=== PATIENT | female | born 1960 | race Caucasian/White ===

== ENCOUNTER 2017-06-22 14:02 | Emergency (ER) | payer OTHER, MEDICARE, SELFPAY | END 2017-06-22 14:57 | disposition home or self-care (01) | PROVIDERS: Emergency Provider Nurse Practitioner Family; Family Provider Internal Medicine Adolescent Medicine; Visit Provider Nurse Practitioner Family | DX: J01.00 Acute maxillary sinusitis, unspecified (principal); I10 Essential (primary) hypertension; E07.9 Disorder of thyroid, unspecified; E78.5 Hyperlipidemia, unspecified; Z87.891 Personal history of nicotine dependence; Z95.1 Presence of aortocoronary bypass graft; J45.909 Unspecified asthma, uncomplicated; Z79.82 Long term (current) use of aspirin; Z79.52 Long term (current) use of systemic steroids; Z79.899 Other long term (current) drug therapy | CPT/HCPCS: 99201 ==

== ENCOUNTER → 2017-07-13 14:43 | Outpatient (CLI) | payer OTHER, MEDICARE, SELFPAY ==
--- NOTE | 2017-07-13 15:00 | MM_ITS ---
MM Dig screening mamm BI w/CAD CAD Screening COMPARISON: Digital mammograms 09/01/2014 INDICATION: There is a history of breast cancer patient's great aunt diagnosed after menopause TECHNIQUE: Standard CC and MLO images were obtained. R2 CAD reviewed. FINDINGS: The breasts are composed primarily of fat with minimal scattered fiber glandular densities in each breast. There are stable tiny nodular density deep within the right breast. There are 2 small stable nodular densities in the left breast. There is no suspicious lesion and no suspicious microcalcifications. IMPRESSION: Fatty type breast parenchyma with no suspicious lesion seen recommend yearly follow-up BI-RADS Category: 2 Benign Finding(s) RECOMMENDED FOLLOW-UP: 1YR - 1 YEAR FOLLOW-UP (A letter has been sent to the patient regarding results of the study.) And 10/24/2015
== END ==
PROVIDERS: Family Provider Internal Medicine Adolescent Medicine; PCP Nurse Practitioner Family; Visit Provider Nurse Practitioner Family
DX: Z12.31 Encounter for screening mammogram for malignant neoplasm of breast (principal)
CPT/HCPCS: 77067

== ENCOUNTER → 2017-07-16 07:02 | Outpatient (CLI) | payer OTHER, MEDICARE, SELFPAY ==
[2017-07-16 09:25] LABS: Alanine Aminotransferase 20 U/L (12-78); Albumin Level 3.5 gm/dL (3.4-5.0); Alkaline Phosphatase 88 U/L (46-116); Anion Gap 13.1 mEq/L (5-15); Aspartate Amino Transferase 16 U/L (15-37); Bilirubin,Total 0.4 mg/dL (0.2-1.0); Blood Urea Nitrogen 15 mg/dL (7-18); Calcium 8.6 mg/dL (8.5-10.1); Carbon Dioxide 26 mmol/L (21.0-32.0); Chloride 105 mmol/L (98-107); Chol/HDL Ratio 4.7 (1-3.5); Cholesterol 161 mg/dL (140-200); Creatinine,Serum 0.83 mg/dL (0.55-1.02); Estimated Glomerular Filt Rate 71 ml/min (>60); GFR (African American) 86 ML/MIN (>60); Globulin 3.5 gm/dl (1.3-3.2); Glucose 96 mg/dL (74-106); HDL Cholesterol 34 mg/dL (29-89); LDL Cholesterol 59 mg/dL (0-130); Potassium 4.1 mmoL/L (3.5-5.1); Sodium 140 mmol/L (136-145); Thyroid Stimulating Hormone 2.59 uIU/ml (0.358-3.740); Triglycerides 339 mg/dL (30-200); VLDL Cholesterol 68 mg/dL (0-40)
[2017-07-17 17:03] LABS: Vitamin D 25 Hydroxy 41.8 ng/mL (30.0-100.0)
== END ==
PROVIDERS: PCP Nurse Practitioner Family; Visit Provider Nurse Practitioner Family
DX: E78.5 Hyperlipidemia, unspecified (principal); E55.9 Vitamin D deficiency, unspecified; E03.9 Hypothyroidism, unspecified
CPT/HCPCS: 36415; 80053; 80061; 82652; 84443

== ENCOUNTER 2017-09-15 18:39 | Emergency (ER) | payer OTHER, MEDICARE, SELFPAY ==
[2017-09-15 19:22] VITALS: BP 143/85; PULSE 71; RESP 20; TEMP 36.6; O2SAT 96; BMI 31.0
--- NOTE | 2017-09-15 19:36 | HMH.EDUTC ---
[facility] [place] Impression: Cough, Rash and nonspecific skin eruption Disposition: Home, Self-Care Condition on Discharge: Good Instructions: DI for Cough -- Adult Additional Instructions: * Rash needs to be evaluated by Dr. Cameron. wondering if due to allergies since occurring w/ same symptoms each time and not itchy/bothersome. Take a picture today in case it looks different by your follow up appointment. * No sign of bacterial infection. Likely viral. Virus can take 7-14 days to run their course * Monitor Temp. no fever would be expected so if occurs, be sure to follow up. * Encourage fluids, water, gatorade, powerade, pedialyte if infant/toddler/child * sleep elevated * humidifier/vaporizer * Continue inhalers and nose sprays as prescribed. * Bromfed may cause drowsiness. Know how it effects you (or your child) before driving, caring for small children, or sending your child to school. No other antihistamines/allergy medications while taking bromfed. THIS MEANS YOUR Zyrtec! Prescriptions: Brompheniramine/Pseudoephed/Dm [Bromfed DM Cough Syrup 5mL] 10 ml PO QID PRN #240 ml PRN Reason: Cough Referrals: Freddie Cameron [Referring] - (Return to [facility], ER or Dr. rodriguez immediately for new or worsening symptoms. Otherwise, keep follow up already scheduled with Dr. Cameron (local asthma and recruiting intern MD) later this week. ) Time of Disposition: 19:49 Medical Decision Making - Isaac Inquiry Pt receiving controlled substance: No Vital Signs: 09/15/17 19:22 Temperature 97.9 F Temperature Source Temporal Artery Scan Pulse Rate [Brachial] 71 Respiratory Rate 20 Blood Pressure [Right Arm] 143/85 Blood Pressure Mean [Right Arm] 104 Blood Pressure Position [Right Arm] Standing 02 Sat by Pulse Oximetry 96 Oxygen Delivery Method Room Air [facility] [place] - General Stated complaint: cough,sore throat Time Seen by Provider: 09/15/17 19:36 Mode of Arrival: Ambulatory Source of Information: Patient Limitations: No Limitations Description of Symptoms (Recalled from Triage Doc. by RN): COMPLAINS OF COUGH, DRAINAGE X 1 WEEK, H/A, SORE THROAT. NOTICED SPOTS ON HER NECK AND FOREARMS THAT SHE HAS HAD ON THE PAST. HEENT Symptoms (Recalled from RN notes): Yes Resp Symptoms (Recalled from RN notes): Yes Skin Symptoms (Recalled from RN notes): No MS Symptoms (Recalled from RN notes): No Functional Status (Recalled from RN notes): NA - History of Present Illness Provider Complaint: c/o PND, cough, sore throat, rash again. Reports this has been a repeated thing x months. About once a month . Denies new contacts, medications, toiletries, pets, etc. Hx of asthma and allergies. Sees Dr. Cameron. At least appt, changed to zyrtec qam and singulair at night w/ continued unknown nasal inhaler, daily respiratory inhaler and rescue inhaler. Denies SOA, increase use of rescue inhaler or wheezing. hx of tobacco use but not xyears. They said at one time I had COPD . Did not discuss intermittent rash w/ Dr. Cameron just this cough and drainage that they think might be allergy related . Saw PCP, Cece, for it one month ago and reports was put on steroids. Steroid didn't help rash. Rash is not bothersome unless I see it . Not itchy. Unchanged since noticed yesterday. - Related Data Home Medications Medication Instructions Recorded Confirmed Aspirin [Aspir 81] 81 mg PO DAILY 09/15/17 09/15/17 Calcium Carbonate/Vitamin D3 1 each PO BID 09/15/17 09/15/17 [Caltrate 600 Plus D3 Tablet] Cetirizine HCl [Cetirizine HCl] 10 mg PO DAILY 09/15/17 09/15/17 Escitalopram Oxalate 10 mg PO DAILY 09/15/17 09/15/17 Furosemide [Furosemide 20mg Tab] 20 mg PO DAILY 09/15/17 09/15/17 Isosorbide Mononitrate [Imdur 30mg 0 mg PO DAILY 09/15/17 09/15/17 ER tablet] Losartan Potassium 25 mg PO DAILY 09/15/17 09/15/17 Metoprolol Succinate [Toprol Xl] 100 mg PO DAILY 09/15/17 09/15/17 Omeprazole [Omeprazole 20mg 20 mg PO DAILY 09/15/17 09/15/17 Capsule] Jose
--- NOTE | 2017-09-15 19:46 | ED_ITS ---
[facility] [place] Clinical Impression: Cough, Rash and nonspecific skin eruption Disposition: Home, Self-Care Condition on Discharge: Good Instructions: DI for Cough -- Adult Additional Instructions: * Rash needs to be evaluated by Dr. Cameron. wondering if due to allergies since occurring w/ same symptoms each time and not itchy/bothersome. Take a picture today in case it looks different by your follow up appointment. * No sign of bacterial infection. Likely viral. Virus can take 7-14 days to run their course * Monitor Temp. no fever would be expected so if occurs, be sure to follow up. * Encourage fluids, water, gatorade, powerade, pedialyte if infant/toddler/ child * sleep elevated * humidifier/vaporizer * Continue inhalers and nose sprays as prescribed. * Bromfed may cause drowsiness. Know how it effects you (or your child) before driving, caring for small children, or sending your child to school. No other antihistamines/allergy medications while taking bromfed. THIS MEANS YOUR Zyrtec ! Prescriptions: Brompheniramine/Pseudoephed/Dm [Bromfed DM Cough Syrup 5mL] 10 ml PO QID PRN # 240 ml PRN Reason: Cough Referrals: Freddie Cameron [Referring] - (Return to [facility], ER or Dr. rodriguez immediately for new or worsening symptoms. Otherwise, keep follow up already scheduled with Dr. Cameron (local asthma and academic program specialist MD) later this week. ) Time of Disposition: 19:49 Medical Decision Making - Isaac Inquiry Pt receiving controlled substance: No Vital Signs: 09/15/17 19:22 Temperature 97.9 F Temperature Source Temporal Artery Scan Pulse Rate [Brachial] 71 Respiratory Rate 20 Blood Pressure [Right Arm] 143/85 Blood Pressure Mean [Right Arm] 104 Blood Pressure Position [Right Arm] Standing 02 Sat by Pulse Oximetry 96 Oxygen Delivery Method Room Air [facility] [place] - General Stated complaint: cough,sore throat Time Seen by Provider: 09/15/17 19:36 Mode of Arrival: Ambulatory Source of Information: Patient Limitations: No Limitations Description of Symptoms (Recalled from Triage Doc. by RN): COMPLAINS OF COUGH, DRAINAGE X 1 WEEK, H/A, SORE THROAT. NOTICED SPOTS ON HER NECK AND FOREARMS THAT SHE HAS HAD ON THE PAST. HEENT Symptoms (Recalled from RN notes): Yes Resp Symptoms (Recalled from RN notes): Yes Skin Symptoms (Recalled from RN notes): No MS Symptoms (Recalled from RN notes): No Functional Status (Recalled from RN notes): NA - History of Present Illness Provider Complaint: c/o PND, cough, sore throat, rash again. Reports this has been a repeated thing x months. About once a month . Denies new contacts, medications, toiletries, pets, etc. Hx of asthma and allergies. Sees Dr. Cameron. At least appt, changed to zyrtec qam and singulair at night w/ continued unknown nasal inhaler, daily respiratory inhaler and rescue inhaler. Denies SOA , increase use of rescue inhaler or wheezing. hx of tobacco use but not xyears. They said at one time I had COPD . Did not discuss intermittent rash w/ Dr. Cameron just this cough and drainage that they think might be allergy related . Saw PCP, Cece, for it one month ago and reports was put on steroids. Steroid didn't help rash. Rash is not bothersome unless I see it . Not itchy. Unchanged since noticed yesterday. - Related Data Home Medications Medication Instructions Recorded Confirmed Aspirin [Aspir 81] 81 mg PO DAILY 09/15/17 09/15/17 Calcium Carbonate/Vitamin D3 1 each PO BID 09/15/17 09/15/17 [Caltrate 600 Plus D3 Tablet]
[2017-09-15 19:49] VITALS: BP 143/85; PULSE 71; RESP 20; TEMP 36.6; O2SAT 96
== END 2017-09-15 19:50 | disposition home or self-care (01) ==
PROVIDERS: Emergency Provider Nurse Practitioner Family; Family Provider Internal Medicine Adolescent Medicine; PCP Internal Medicine Adolescent Medicine
DX: R05 Cough (principal); R21 Rash and other nonspecific skin eruption; I10 Essential (primary) hypertension; I25.10 Atherosclerotic heart disease of native coronary artery without angina pectoris; E11.9 Type 2 diabetes mellitus without complications; Z88.0 Allergy status to penicillin; Z79.899 Other long term (current) drug therapy
CPT/HCPCS: 99202

== ENCOUNTER → 2018-01-21 18:59 | Outpatient (REF) | payer OTHER, MEDICARE, SELFPAY | LOC: LAB 18:59 | PROVIDERS: Visit Provider Nurse Practitioner Family | DX: R10.30 Lower abdominal pain, unspecified (principal) | CPT/HCPCS: 87086 ==

== ENCOUNTER → 2018-03-11 12:40 | Outpatient (CLI) | payer OTHER, MEDICARE, SELFPAY ==
--- NOTE | 2018-03-11 12:40 | XR_ITS ---
XR foot wt bearing RT 3V, XR ankle wt bearing RT min 3V Ordering Physician: Ericka Christine DPM Patient Age: 57 years: Female HISTORY: ITS.REASON: pain HISTORY of plantar fasciitis TECHNIQUE: Right ankle 3 views Right foot: 3 views COMPARISON : 10/23/2015 right foot and ankle RIGHT ANKLE 3 VIEWS weightbearing Right ankle is intact joint space well maintained. Talar dome intact. Ankle mortise satisfactory . Bones well mineralized. No erosions. RIGHT FOOT: 3 VIEWS weightbearing No fracture no dislocation. Satisfactory osseous relationships No significant change since October 2015 comparison study. Again see some very slight relative cortical thickening at the proximal metaphysis fourth metatarsal but similar to previous study. Possible old stress reaction but unimpressive. Borderline narrowing at the first tarsometatarsal joint and IP joint of great toe. Borderline narrowing at the DIP joints of the toes. These features could reflect very early degenerative changes Minimal modest plantar arch.Minimal calcaneal spurs. Small 3 mm plantar calcaneal spur. Roughly 5 mm thin spur at Achilles tendon insertion. IMPRESSION: ......... 1.. Right ankle is intact 2. Right foot: no prominent change since 2016. Only very minor observations in text. ... Small plantar calcaneal spur slightly more evident than 2016. ... Only question some scant early degenerative changes at: first tarsal/metatarsal joint, IP joint great toe and DIP joints toes.
== END ==
PROVIDERS: Visit Provider Podiatrist
DX: M25.571 Pain in right ankle and joints of right foot (principal)
CPT/HCPCS: 73610; 73630

== ENCOUNTER → 2018-04-01 14:16 | Outpatient (CLI) | payer OTHER, MEDICARE, SELFPAY ==
--- NOTE | 2018-04-01 14:26 | MR_ITS ---
MR ankle RT wo/w con HISTORY: Instability of the ankle, pain around entire ankle when walking ITS.REASON: right ankle instability ORDERING PHYSICIAN: Ericka Christine DPM PATIENT AGE: 57 years Comparison: None TECHNIQUE: Standard multiplanar multiecho sequences are performed without and with gadolinium enhancement. FINDINGS: The talar dome has an unremarkable appearance. The anterior and posterior tibiofibular ligaments appear intact. There is increased T2 signal involving the anterior talofibular ligament consistent with partial tear.. Fluid in the lateral aspect of the talofibular joint space and at the region of the ATFL. The fibers of the ligament are sparse however deltoid ligament appears intact. Posterior talofibular ligament also appears intact. The tendons about the ankle appear intact. No bone bruise evident. No abnormal enhancement. No bone marrow edema IMPRESSION: 1. Partial tear of the ATFL with ankle joint effusion laterally. 2. Otherwise negative
[2018-04-01 14:40] LABS: Blood Urea Nitrogen 12 mg/dL (7-18); Creatinine,Serum 0.92 mg/dL (0.55-1.02); Estimated Glomerular Filt Rate 63 ml/min (>60); GFR (African American) 76 ML/MIN (>60)
--- NOTE | 2018-04-01 15:31 | HMH.ITSHM ---
FISH OIL COQ10 CALTRATE HAIR, SKIN, AND NAIL ATORVASTATIN LOSARTAN POTASSIUM MONTELUKAST SOD LEVOTHROXINE METOPROLOL SUCC ER OMEPRAZOLE FUROSEMIDE TRAZODONE ESCITALOPRAM CETIRIZINE HCL MELOXICAM
== END ==
PROVIDERS: Family Provider Internal Medicine Adolescent Medicine; Visit Provider Podiatrist
DX: M25.371 Other instability, right ankle (principal); M25.571 Pain in right ankle and joints of right foot; S93.491A Sprain of other ligament of right ankle, initial encounter
CPT/HCPCS: 36415; 73723; 82565; 84520; A9576

== ENCOUNTER 2018-06-03 15:00 | Outpatient (RCR) | payer OTHER, MEDICARE, SELFPAY ==
--- NOTE | 2018-04-23 11:35 | HMH.PTOPEV ---
PT Outpatient Evaluation Rehab PT Outpatient Evaluation Start: 04/23/18 11:24 Freq: Status: Active Protocol: Document 04/23/18 11:24 HALIPAGE (Rec: 04/23/18 11:35 [email or web address] [id number]) Electronically Signed By Jd Hamilton, PT 04/23/18 11:24 Outpatient Therapy Subjective History Subjective History Patient is a 57 year old female presenting to outpatient PT with reports R ankle instability and R heel pain. Pt reports R ATFL tear and R plantar fasciitis starting approximately 5 months ago. Pt reports previous heel injection that provided some relief, but is now wearing off. She reports wearing multiple ankle braces during ambulation and sleep. Hx of L plantar fasciitis. Chief Complaint Pain Stiff Swelling Gives out/Unstable Symptom Type Ache Sharp Symptoms Relieved By Rest/Positioning Ice OTC Meds Prescription Meds Symptoms Aggravated By Standing Physical Activity Walking Prior Functional Limitations None Current Functional Limitations Housework Standing Squatting Recreation Activity Walking Stairs Balance Symptom Description Constant but Variable Level of pain today (0-10) 1 Pain scale - at its best (0-10) 0 Pain scale - at its worst (0-10) 4 Ankle/Foot Eval Gait Observation General Gait Pattern Observation Antalgic Gait Palpation Tenderness right Ankle/Foot Palpation Findings Tenderness Ankle/Foot Palpation Overall Comment calcaneal tubercle ATF TTP positive ROM left Ankle/Foot ROM Reason Not Measured Within Functional Limits right Ankle/Foot Dorsiflexion w/Knee Extended -2 Active Range Motion (degrees) Ankle/Foot Plantar Flexion Active Range 60 of Motion (degrees) Ankle/Foot Eversion Active Range of 13 Motion (degrees) Ankle/Foot Inversion Active Range of 22 Motion (degrees) Ankle/Foot ROM Limitations Soft Tissue Tightness Accessory Mo
== END 2018-06-03 15:05 | disposition home or self-care (01) ==
LOC: PT 15:00
PROVIDERS: Family Provider Internal Medicine Adolescent Medicine; Visit Provider Podiatrist
DX: M25.371 Other instability, right ankle (principal); M72.2 Plantar fascial fibromatosis
CPT/HCPCS: 97010; 97014; 97016; 97033; 97035; 97110; 97140; 97163; G0283

== ENCOUNTER → 2018-06-11 10:00 | Outpatient (CLI) | payer OTHER, MEDICARE, SELFPAY ==
--- NOTE | 2018-06-11 10:22 | XR_ITS ---
XR chest 2V HISTORY: History of smoking with hypertension ITS.REASON: EX SMOKER, HTN, ORDERING PHYSICIAN: Ericka Christine DPM PATIENT AGE: 57 years COMPARISON: 01/22/2018 FINDINGS: There has been prior median sternotomy with CABG. Normal heart size. Prominent pericardial fat pad is present on both sides right more so than left. There is a 5 mm nodule in the right upper lobe posteriorly is stable. Minimal atelectatic changes are present in the retrocardiac region. The remaining lungs are clear. No acute bony anomalies. IMPRESSION: No change with no acute finding
[2018-06-11 10:33] LABS: Basophils % 0.6 % (0.1-2.0); Eosinophils # 0.1 K/mm3 (0.0-0.4); Eosinophils % 1.7 % (0.1-12.0); Hematocrit 35.9 % (37.0-47.0); Lymphocytes # 1.5 K/mm3 (0.7-4.5); Lymphocytes % 25.1 % (10-50); Mean Corpuscular HGB Conc 30.7 g/dL (31.8-35.4); Mean Corpuscular Hemoglobin 25.2 pg (27.0-31.2); Mean Corpuscular Volume 82.1 fl (81-99); Monocytes # 0.5 K/mm3 (0.1-1.0); Monocytes % 7.7 % (1.7-9.3); Neutrophils # 3.8 K/mm3 (1.8-7.8); Neutrophils % 64.9 % (37.0-80.0); Platelet Count 331 K/mm3 (142-424); Red Blood Count 4.37 M/mm3 (4.20-5.40); Red Cell Distribution Width 16.3 % (11.5-17.5); White Blood Count 5.9 K/mm3 (4.8-10.8)
[2018-06-11 10:39] LABS: INR 0.94 (0.9-1.1); Prothrombin Time 9.7 seconds (9.4-11.8)
[2018-06-11 11:02] LABS: Alanine Aminotransferase 37 U/L (12-78); Albumin Level 3.1 gm/dL (3.4-5.0); Albumin/Globulin Ratio 0.7 (1.1-1.8); Alkaline Phosphatase 110 U/L (46-116); Anion Gap 12.6 mEq/L (5-15); Aspartate Amino Transferase 17 U/L (15-37); Bilirubin,Total 0.5 mg/dL (0.2-1.0); Blood Urea Nitrogen 9 mg/dL (7-18); Calcium 8.6 mg/dL (8.5-10.1); Carbon Dioxide 28 mmol/L (21.0-32.0); Chloride 104 mmol/L (98-107); Creatinine,Serum 0.78 mg/dL (0.55-1.02); Estimated Glomerular Filt Rate 76 ml/min (>60); GFR (African American) 92 ML/MIN (>60); Globulin 4.3 gm/dl (1.3-3.2); Glucose 105 mg/dL (74-106); Potassium 3.6 mmoL/L (3.5-5.1); Sodium 141 mmol/L (136-145); Total Protein,Serum 7.4 gm/dL (6.4-8.2)
[2018-06-13 05:35] LABS: Vitamin D 25 Hydroxy 39.2 ng/mL (30.0-100.0)
== END ==
PROVIDERS: Visit Provider Podiatrist
DX: Z01.818 Encounter for other preprocedural examination (principal); M25.371 Other instability, right ankle
CPT/HCPCS: 36415; 71046; 80053; 82652; 85025; 85610; 93005

== ENCOUNTER → 2018-07-08 15:53 | Outpatient (CLI) | payer OTHER, MEDICARE, SELFPAY ==
--- NOTE | 2018-07-08 15:58 | XR_ITS ---
XR ankle wt bearing RT min 3V HISTORY: Follow-up surgery ITS.REASON: post-op views ORDERING PHYSICIAN: Ericka Christine DPM PATIENT AGE: 57 years Comparison: 06/23/2018 FINDINGS: Study is obtained through a splint. Lateral bone plate of the distal fibula with 2 drains. Fixators and metallic buttons along the medial aspect of the distal tibia noted stabilizing the tibial fibular junction. The ankle mortise is intact. The alignment. IMPRESSION: Good alignment status post stabilization procedure of the distal tibia and fibula with no significant change
== END ==
PROVIDERS: PCP Internal Medicine Adolescent Medicine; Visit Provider Podiatrist
DX: Z98.890 Other specified postprocedural states (principal)
CPT/HCPCS: 73610

== ENCOUNTER → 2018-07-27 15:40 | Outpatient (CLI) | payer OTHER, MEDICARE, SELFPAY ==
--- NOTE | 2018-07-27 15:43 | XR_ITS ---
XR ankle wt bearing RT min 3V HISTORY: Follow-up surgery ITS.REASON: post-op ORDERING PHYSICIAN: Ericka Christine DPM PATIENT AGE: 58 years Comparison: 07/08/2018 FINDINGS: No change status post ORIF of the distal tib-fib with a lateral bone plate of the distal shaft of the fibula, 2 transparent fixators within the distal tibia and fibula fixating the tib-fib syndesmosis. The ankle mortise is preserved. The splint has been removed. IMPRESSION: Removal of splint otherwise no change prior fixation of the distal tib-fib
== END ==
PROVIDERS: PCP Internal Medicine Adolescent Medicine; Visit Provider Podiatrist
DX: Z98.890 Other specified postprocedural states (principal)
CPT/HCPCS: 73610

== ENCOUNTER → 2018-09-13 16:13 | Outpatient (CLI) | payer OTHER, MEDICARE, SELFPAY ==
--- NOTE | 2018-09-13 16:16 | MM_ITS ---
MM Dig screening mamm BI w/CAD CAD Screening COMPARISON: Digital mammograms with CAD 07/13/2017 and 10/24/2015 INDICATION: There is a history of breast cancer patient maternal great aunt diagnosed after menopause TECHNIQUE: Standard CC and MLO images were obtained. R2 CAD reviewed. FINDINGS: The breasts are composed primarily of fat with minimal scattered fibroglandular densities in each breast. There are stable tiny nodular densities in each breast. There is a benign-appearing calcification left breast. There is no suspicious lesion and no suspicious microcalcifications. IMPRESSION: Fatty type breast parenchyma with no suspicious lesion seen BI-RADS Category: 2 Benign Finding(s) RECOMMENDED FOLLOW-UP: 1YR - 1 YEAR FOLLOW-UP (A letter has been sent to the patient regarding results of the study.)
== END ==
PROVIDERS: PCP Nurse Practitioner Family; Visit Provider Nurse Practitioner Family
DX: Z12.31 Encounter for screening mammogram for malignant neoplasm of breast (principal)
CPT/HCPCS: 77067

== ENCOUNTER → 2018-09-27 09:58 | Outpatient (CLI) | payer OTHER, MEDICARE, SELFPAY ==
--- NOTE | 2018-09-27 10:03 | XR_ITS ---
XR ankle wt bearing RT min 3V HISTORY: Follow-up surgery ITS.REASON: post-op ORDERING PHYSICIAN: Ericka Christine DPM PATIENT AGE: 58 years Comparison: 06/23/2018 FINDINGS: There are postsurgical changes with a lateral bone plate at the distal fibula with transparent fixators between the distal tibia and fibula and 2 metallic buttons along the medial aspect of the distal tibia. There remains good alignment. The ankle mortise is preserved. The splint has been removed. IMPRESSION: Good alignment status post fixation of the distal tib-fib as described above
== END ==
PROVIDERS: PCP Internal Medicine Adolescent Medicine; Visit Provider Podiatrist
DX: Z98.890 Other specified postprocedural states (principal)
CPT/HCPCS: 73610

== ENCOUNTER 2018-10-22 10:00 | Outpatient (RCR) | payer OTHER, MEDICARE, SELFPAY ==
--- NOTE | 2018-08-09 10:45 | HMH.PTOPEV ---
PT Outpatient Evaluation Rehab PT Outpatient Evaluation Start: 08/09/18 10:16 Freq: Status: Active Protocol: Document 08/09/18 10:17 ROMÁN (Rec: 08/09/18 10:45 ROMÁN [id number]) Electronically Signed By Alex Draper, PT 08/09/18 10:17 Outpatient Therapy Subjective History Subjective History Pt presents s/p R Ankle sx. ( ligament repair) on 06/23/18. Pt reports improved R ankle pain since sx., however, still has some discomfort, swelling , weakness, and N&T. Pt currenly WB 50% on R LE w/cam walker and B axillary crutches Chief Complaint Pain Stiff Swelling Paresthesia Weakness Symptom Type Ache Dull Numbness Symptoms Relieved By Rest/Positioning Ice Symptoms Aggravated By Standing Walking Prior Functional Limitations Housework Standing Walking Current Functional Limitations Housework Standing Walking Stairs Symptom Description Intermittent Level of pain today (0-10) 2 Pain scale - at its best (0-10) 0 Pain scale - at its worst (0-10) 6 Ankle/Foot Eval Gait Observation General Gait Pattern Observation Antalgic Gait Wide Based Gait Assistive Device Ambulation Assistive Device Axillary Crutches Palpation Tenderness right Ankle/Foot Palpation Findings Tenderness Ankle/Foot Palpation Overall Comment 2-3/4 ATF TTP positive PTF TTP positive CF TTP positive Deltoid ligament TTP positive ROM Ankle/Foot Dorsiflexion w/Knee Extended 0-2 Active Range Motion (degrees) Ankle/Foot Plantar Flexion Active Range 0-25 of Motion (degrees) Ankle/Foot Eversion Active Range of 0-10 Motion (degrees) Ankle/Foot Inversion Active Range of 0-15 Motion (degrees) Ankle/Foot ROM Limitations Soft Tissue Tightness Pain MMT Ankle Dorsiflexion Strength Grade 4- Good- Ankle Plantarflexion Strength Grade 4- Good- Foot Eversion Strength Grade 4- Good- Foot Inversion Strength Grade 4- Good- Outpatient Therapy Assessment Impairments Problems/Impairmments
--- NOTE | 2018-09-14 11:21 | HMH.RHREAS ---
Rehab Reassessment Rehab OP Re-assessment Start: 09/14/18 11:14 Freq: Status: Active Protocol: Document 09/14/18 11:14 OVIDIOFARRUKHTRACY (Rec: 09/14/18 11:21 [email or web address] [id number]) Electronically Signed By Alex Draper, PT 09/14/18 11:14 Rehab Re-assessment Subjective Subjective PT REPORTS 0/10 R ANKLE PAIN AT REST AND 2-3/10 R ANKLE PAIN W/ACTIVITY ON VAS, AND FEELS 70% BETTER SINCE I EVAL Objective Objective Notes AROM: L ANKLE DF 0-2, PF 0-35, INV 0-20, EVR 0-15 MMT: L ANKLE DF 4+/5, PF 4/5, INV 4/5, EVR 4/5 TTP: L ANKLE LAT. PERONEAL TNEDON AREA 1-2/4 FIG 8 L 60CM Assessment Progress Assessment Progressing as Expected Assessment Notes PT W/IMPROVED STRENGTH, TTP, AND EDEMA Patient goals met STG'S 01/10 Goals Not Met STG'S 07/13 LTG'S 03/14 Plan Plan PT TO CONT W/SKILLED P.T. TO MAKE FURTHER IMPROVEMENTS IN ROM, STRENGTH, AND TTP TO ALLOW FOR OPTIMAL FUNTION Frequency of Therapy 1-2X/WK Duration of therapy 3-4WKS Time and Billing Re-Eval Time 15 Re-Eval Billing Units 1 PHYSICIAN CERTIFICATION: I certify the specified therapy services for Kina Queen are required, authorized, and reviewed every 30 days.
== END 2018-10-22 10:05 | disposition home or self-care (01) ==
LOC: PT 10:00
PROVIDERS: Visit Provider Podiatrist
DX: Z98.890 Other specified postprocedural states (principal); M79.671 Pain in right foot
CPT/HCPCS: 97010; 97014; 97016; 97033; 97035; 97110; 97140; 97163; 97164; G0283

== ENCOUNTER → 2019-06-23 16:54 | Outpatient (CLI) | payer OTHER, MEDICARE, SELFPAY | PROVIDERS: Visit Provider Podiatrist | DX: B35.1 Tinea unguium (principal) | CPT/HCPCS: 87102; 87206; 87220 ==

== ENCOUNTER → 2019-06-30 08:49 | Outpatient (CLI) | payer OTHER, MEDICARE, SELFPAY ==
[2019-06-30 09:20] LABS: Basophils % 0.3 % (0.1-2.0); Eosinophils % 0.5 % (0.1-12.0); Hematocrit 37.6 % (37.0-47.0); Lymphocytes % 21.6 % (10-50); Mean Corpuscular HGB Conc 31.8 g/dL (31.8-35.4); Mean Corpuscular Hemoglobin 25.3 pg (27.0-31.2); Mean Corpuscular Volume 79.6 fl (81-99); Monocytes # 0.6 K/mm3 (0.1-1.0); Monocytes % 5.9 % (1.7-9.3); Neutrophils # 6.8 K/mm3 (1.8-7.8); Neutrophils % 71.8 % (37.0-80.0); Platelet Count 363 K/mm3 (142-424); Red Blood Count 4.73 M/mm3 (4.20-5.40); Red Cell Distribution Width 15.5 % (11.5-17.5); White Blood Count 9.5 K/mm3 (4.8-10.8)
[2019-06-30 10:24] LABS: Alanine Aminotransferase 22 U/L (12-78); Albumin Level 3.2 gm/dL (3.4-5.0); Albumin/Globulin Ratio 0.8 (1.1-1.8); Alkaline Phosphatase 98 U/L (46-116); Anion Gap 15.2 mEq/L (5-15); Aspartate Amino Transferase 9 U/L (15-37); Bilirubin,Total 0.3 mg/dL (0.2-1.0); Blood Urea Nitrogen 16 mg/dL (7-18); Calcium 8.5 mg/dL (8.5-10.1); Carbon Dioxide 27 mmol/L (21.0-32.0); Chloride 105 mmol/L (98-107); Creatinine,Serum 0.71 mg/dL (0.55-1.02); Estimated Glomerular Filt Rate 85 ml/min (>60); GFR (African American) 102 ML/MIN (>60); Globulin 3.8 gm/dl (1.3-3.2); Glucose 84 mg/dL (74-106); Potassium 4.2 mmoL/L (3.5-5.1); Sodium 143 mmol/L (136-145)
[2019-06-30 10:33] LABS: Thyroid Stimulating Hormone 2.79 uIU/ml (0.358-3.740)
[2019-07-01 11:43] LABS: Vitamin B12 380 pg/mL (232-1245); Vitamin D 25 Hydroxy 45.5 ng/mL (30.0-100.0)
== END ==
PROVIDERS: Podiatrist; Visit Provider Nurse Practitioner Family
DX: E78.5 Hyperlipidemia, unspecified (principal); E03.9 Hypothyroidism, unspecified; E53.8 Deficiency of other specified B group vitamins; E55.9 Vitamin D deficiency, unspecified; I25.83 Coronary atherosclerosis due to lipid rich plaque
CPT/HCPCS: 36415; 80053; 82607; 82652; 84443; 85025

== ENCOUNTER → 2019-08-18 14:49 | Outpatient (CLI) | payer OTHER, MEDICARE, SELFPAY ==
--- NOTE | 2019-08-18 14:53 | XR_ITS ---
PROCEDURE: XR CHEST 2V CLINICAL HISTORY: COUGH COMPARISON: CXR2V XR chest 2V from 01/22/2018 CXR2V XR chest 2V from 05/12/2018 CXR2V XR chest 2V from 06/11/2018 FINDINGS: Prior CABG. Chronic opacity is present in the right lung base consistent with pericardial fat pad with some superimposed increased density just superior to this suggesting atelectasis or infiltrate. There are minimal atelectatic changes in the left lung base. No acute bony abnormalities. IMPRESSION: Chronic changes with right basilar atelectasis or infiltrate Dictated by: Shayan Rea MD 08/18/2019 15:29 Electronically signed by Shayan Rea MD in [place] 08/18/2019 15:29
== END ==
PROVIDERS: PCP Internal Medicine Adolescent Medicine; Visit Provider Nurse Practitioner
DX: R05 Cough (principal)
CPT/HCPCS: 71046

== ENCOUNTER → 2019-11-08 07:36 | Outpatient (CLI) | payer OTHER, MEDICARE, SELFPAY ==
--- NOTE | 2019-11-08 07:42 | US_ITS ---
PROCEDURE: US AORTA CLINICAL INDICATION: CORONARY ATHEROSCLEROSIS COMPARISON: No exams were available for comparison FINDINGS: No evidence of abdominal aortic aneurysm. Proximal common iliacs have an unremarkable appearance. IMPRESSION: Negative for abdominal aortic aneurysm Dictated by: Shayan Rea MD 11/08/2019 17:52 Electronically signed by Shayan Rea MD in [place] 11/08/2019 17:52
--- NOTE | 2019-11-08 07:43 | CT_ITS ---
PROCEDURE: CT LUNG SCREENING CLINICAL INDICATION: H/O NICOTINE DEPENDENCE COMPARISON: No exams were available for comparison TECHNIQUE: The exam was performed on a GE Light Speed [address] scanner using 2.90 mGy CTDI. A low dose helical CT CHEST was performed on a multi-detector scanner. All CT scans at the facility use one or more dose reduction, viz: automated exposure control, ma/kV adjustment per patient size (including targeted exams where dose is matched to indication, i.e. head), or iterative reconstruction technique. The LDCT was performed in a facility that meets the criteria for the screening program. Data regarding this exam was submitted to ACR which is an approved registry. The order for this exam indicates that it came as a result of a lung cancer screening counseling shard decision-making visit that included all the elements required of such a visit including smoking cessation. The radiologist interpreting this exam meets the CMS criteria for the LDCT lung cancer screening program. The exam is reported using the Lung-RADS classification scale and reported to the ACR registry. NOTE: This study was performed for the specific purposes of lung cancer screening and is not an alternative to diagnostic chest CT. RADIATION DOSE: CTDI vol(CT dose Index-volume) = 2.90mG DLP (Dose Length Product) = 96.38 mGcm Lung Rads Category: The FINDINGS: In the right middle lobe there are 2 different 3 mm nodules nonspecific. Calcified granuloma is present in the right upper lobe. A 4 mm noncalcified nodules present in the superior segment of the right lower lobe most superior aspect. Image 21 series 4 probably benign OTHER FINDINGS: Prior CABG. Prior cholecystectomy. IMPRESSION: Lung rads category 2, benign. Recommend annual LD CT Dictated by: Shayan Rea MD 11/21/2019 13:52 Electronically signed by Shayan Rea MD in [place] 11/21/2019 13:52
== END ==
PROVIDERS: PCP Internal Medicine Adolescent Medicine; Visit Provider Internal Medicine Adolescent Medicine
DX: I25.83 Coronary atherosclerosis due to lipid rich plaque (principal); Z87.891 Personal history of nicotine dependence; Z12.2 Encounter for screening for malignant neoplasm of respiratory organs; Z13.6 Encounter for screening for cardiovascular disorders
CPT/HCPCS: 76770

== ENCOUNTER → 2019-12-27 08:45 | Outpatient (CLI) | payer OTHER, MEDICARE, SELFPAY ==
--- NOTE | 2019-12-27 08:48 | MM_ITS ---
PROCEDURE: MM DIG SCREENING MAMM BI W/CAD Digital Breast Tomosynthesis Included CLINICAL INDICATION: . SCREENING There is a history of breast cancer patient's maternal great aunt diagnosed after menopause. COMPARISON: [facility] DIG MAMM-SCREEN JOSE from 10/24/2015 [facility] MM Dig screening mamm BI w/CAD from 07/13/2017 [facility] MM Dig screening mamm BI w/CAD from 09/13/2018 TECHNIQUE: Standard CC and MLO images and 3D Tomosynthesis was obtained. R2 CAD reviewed. FINDINGS: Breasts are composed primarily of fat with minimal scattered fibroglandular densities in each breast. There is a benign-appearing calcification right breast and 3 benign-appearing calcifications left breast. There are tiny nodular densities upper outer quadrant right breast many of which were seen previously but the appears slightly more prominent on today's exam but have no suspicious findings on flor images. However recommend the patient return for six-month follow-up right mammogram to assure interval stability. There are no suspicious microcalcifications. IMPRESSION: Fibrofatty parenchyma with slightly asymmetric glandular elements right breast and recommend short-term interval follow-up to evaluate for interval stability BI-RAD Category: 3 Probably Benign Finding Short Term Follow-up FOLLOW-UP: 6M 6Month Follow-up (A letter has been sent to the patient regarding results of the study.) Dictated by: Dr. Dereck Ortiz MD 12/29/2019 07:[address] Dereck Ortiz MD in [place] 12/29/2019 07:11
== END ==
PROVIDERS: PCP Internal Medicine Adolescent Medicine; Visit Provider Nurse Practitioner Family
DX: Z12.31 Encounter for screening mammogram for malignant neoplasm of breast (principal)
CPT/HCPCS: 77063; 77067

== ENCOUNTER → 2020-01-09 19:09 | Outpatient (CLI) | payer OTHER, MEDICARE, SELFPAY ==
--- NOTE | 2020-01-09 19:27 | XR_ITS ---
PROCEDURE: XR FOOT WT BEARING RT 3V CLINICAL INDICATION: Right 5th toe injury Pain COMPARISON: FTR3 FOOT-RT-3 VIEWS from 10/23/2015 FTL3 FOOT-LT-3 VIEWS from 10/23/2015 FTWBR3 XR foot wt bearing RT 3V from 03/11/2018 FINDINGS: Nondisplaced fracture involves the mid and distal distal aspect of the proximal phalanx of the 5th toe. There also appears to be an intra-articular component involving the proximal and medial aspect of the proximal phalanx. IMPRESSION: Nondisplaced fracture proximal phalanx 5th toe Dictated by: Shayan Rea MD 01/10/2020 07:05 Electronically signed by Shayan Rea MD in [place] 01/10/2020 07:05
== END ==
PROVIDERS: PCP Nurse Practitioner Family; Visit Provider Podiatrist
DX: M79.671 Pain in right foot (principal)
CPT/HCPCS: 73630

== ENCOUNTER → 2020-02-02 08:55 | Outpatient (CLI) | payer OTHER, MEDICARE, SELFPAY ==
--- NOTE | 2020-02-02 09:04 | XR_ITS ---
PROCEDURE: XR FOOT WT BEARING RT 3V CLINICAL INDICATION: fracture follow up COMPARISON: FTR3 FOOT-RT-3 VIEWS from 10/23/2015 FTL3 FOOT-LT-3 VIEWS from 10/23/2015 FTWBR3 XR foot wt bearing RT 3V from 03/11/2018 XR FOOT WT BEARING RT 3V from 01/09/2020 FINDINGS: Again noted is subtle nondisplaced intra-articular corner healing fracture of the head of the 5th proximal phalanx.. No lytic or blastic change. There is normal mineralization. The joint spaces are well-preserved. Other findings:Linear calcification is seen distally along the Achilles tendon, consistent with calcific tendinopathy. A small moderate size plantar calcaneal spur. IMPRESSION: 1. A subtle nondisplaced intra-articular corner fracture of the head of the 5th proximal phalanx is again seen. 2. Calcific tendinopathy with a retrocalcaneal linear calcification. Plantar calcaneal spur. Dictated by: Andrea Mello 02/02/2020 18:42 Electronically signed by Andrea Mello in [place] 02/02/2020 18:42
== END ==
PROVIDERS: PCP Nurse Practitioner Family; Visit Provider Podiatrist
DX: S92.501D Displaced unspecified fracture of right lesser toe(s), subsequent encounter for fracture with routine healing (principal); T14.8XXA Other injury of unspecified body region, initial encounter
CPT/HCPCS: 73630

== ENCOUNTER → 2020-03-05 10:40 | Outpatient (CLI) | payer OTHER, MEDICARE, SELFPAY ==
--- NOTE | 2020-03-05 10:58 | XR_ITS ---
PROCEDURE: XR DEXA AXIAL SKELETON CLINICAL HISTORY: POST MENOPAUSAL COMPARISON: No exams were available for comparison FINDINGS: The right hip BMD is 0.861 with a T-score of -0.7. The left hip BMD is 0.889 with a T-score of -0.4. The lumbar spine BMD is 0.969 with a T-score of -0.7. IMPRESSION: This patient is considered normal according to the World Health Organization criteria. Fracture risk is low. Based on these results a follow-up exam is recommended in 2 year. Dictated by: Shayan Rea MD 03/06/2020 07:18 Shayan Rea MD in [place] 03/06/2020 07:18
== END ==
PROVIDERS: PCP Nurse Practitioner Family; Visit Provider Nurse Practitioner Family
DX: Z13.820 Encounter for screening for osteoporosis (principal); Z78.0 Asymptomatic menopausal state
CPT/HCPCS: 77080

== ENCOUNTER → 2020-03-29 12:09 | Outpatient (CLI) | payer OTHER, MEDICARE, SELFPAY ==
[2020-03-29 14:34] LABS: Coronavirus 19 IgG Antibody Negative (Negative); Coronavirus 19 IgM Antibody Negative (Negative)
== END ==
PROVIDERS: Visit Provider Surgery
DX: Z01.89 Encounter for other specified special examinations (principal); Z12.11 Encounter for screening for malignant neoplasm of colon
CPT/HCPCS: 36415; 86328

== ENCOUNTER → 2020-04-02 13:04 | Outpatient (CLI) | payer OTHER, MEDICARE, SELFPAY ==
[2020-04-02 14:32] LABS: Coronavirus 19 IgG Antibody Negative (Negative); Coronavirus 19 IgM Antibody Negative (Negative)
== END ==
PROVIDERS: Visit Provider Surgery
DX: Z01.89 Encounter for other specified special examinations (principal); Z12.11 Encounter for screening for malignant neoplasm of colon
CPT/HCPCS: 36415; 86328

== ENCOUNTER 2020-04-03 08:49 | Day surgery (SDC) | payer OTHER, MEDICARE, SELFPAY ==
[2020-03-29 13:20] VITALS: BMI 34.7
[2020-04-03] VITALS (7 sets, daily range): BP systolic 102–125; BP diastolic 52–63; PULSE 56–67; RESP 18; TEMP 36.1–36.7; O2SAT 94–100
--- NOTE | 2020-04-03 10:10 | P.PN_ITS ---
[facility] Anesthesia Checklist - Structural Data Admitted From: Home Planned Operative Procedure/s: colonoscopy Consent for Planned Operative Procedure(s) Verified: Yes - Additional verifications Anesthesia Reactions: No Hx Blood Transfusions: No Blood Transfusion Reaction: No - Airway Assessment C-Spine Mobility Assessed: Yes TMJ Mobility Assessed: Yes Dentition: Good Dentition - Neurological Assessment Level of Consciousness: Awake, Alert, Appropriate - Anesthesia Plan Anesthesia Risk discussed: Yes Anesthesia Plan: Verified ASA Class: III Anesthesia Type: MAC [facility] History I have reviewed the patient's past medical history: Yes Medical History: Reports:: Anxiety, Congestive Heart Failure, Coronary Artery Disease, Depression, Gastroesophageal Reflux Disease(GERD), Hyperlipidemia, Hypertension, Lung Disease Denies:: Cancer, Diabetes Mellitus Type 1, Diabetes Mellitus Type 2, Internal Pacemaker, MRSA, Seizures *Have you ever received a pneumonia vaccine?: Yes *Have you received a flu vaccine this season?: No Other Medical History: Reports: Hypothyroidism, Other. Denies: Blood Transfusion Reaction Anesthesia experience/problems:: none Laterality Cases: Right: Other, Bilateral: Cataract Other Surgeries: Yes: Appendectomy, CABG (4 vessel), Cardiac Surgery (2011), Cholecystectomy, Colonoscopy, EGD, Hysterectomy-Total, Hysterectomy-Partial, Other. No: Pacemaker Amputation: No Fractures: No - *Social History Last grade of school completed: High school graduate Smoking Status: Former smoker Tobacco Type: cigarettes Alcohol Intake: never Alcohol Intake Frequency:: other Substance Use Type: denies use *Occupational Status:: disabled Housing: house Household Members: spouse *Travel in the last 8 weeks: Inside the [facility] - Psychiatric History Pschychiatric History:: Reports:: Anxiety, Depression Family Hx:: Non-contributory
--- NOTE | 2020-04-03 11:43 | HMH.SCOPE ---
- Procedure: Date: 04/03/20 Patient Date of :: 1960 Procedure Performed:: Total colonoscopy to terminal ileum with polypectomy Indications:: Patient is a 59-year-old female referred by Cece Cano for follow-up colonoscopy. I had performed several colonoscopies on her in the past. In 2013 she had at least one sessile serrated adenoma. She had follow-up colonoscopy November 2015 and had 3 sessile serrated adenomas and 2 tubular adenomas. Colonoscopy done on 12/29/2017 along with upper endoscopy revealed several hyperplastic polyps and one sessile serrated adenoma. She is without complaints. However, interestingly, she does state that she often vomits when she has a bowel movement. She had mentioned this several years ago as well. Performing Provider:: Zack Kelley MD Referring Provider:: Cece Cano Sedation:: MAC sedation Procedure:: Patient was taken to endoscopy procedure room. She was positioned in lateral decubitus position. Adequate intravenous sedation was achieved with anesthesia titration of propofol. Variable stiffness Olympus colonoscope was inserted via the anus. Was advanced to the cecum. Ileocecal valve and appendiceal orifice were clearly identified. Colonoscope was advanced a short distance into the terminal ileum which appeared grossly normal. Colonoscope was withdrawn through the colon with careful surveillance. She had rare diverticuli. There was a small polyp and an adjacent diminutive polyp near the hepatic flexure 1 of which was removed with cold cutting snare and one removed with biopsy forceps. She had too numerous to count a hyperplastic appearing rectal polyps many of which were sampled, total 7, with cold biopsy forceps to ensure that these were merely hyperplastic. Retroflexion revealed no evidence of any pathologic internal hemorrhoids. Colonoscope was withdrawn. Findings:: Rare diverticulosis Small and diminutive hepatic flexure polyps Numerous hyperplastic appearing rectal polyps Recommendations:: Pending the pathology of the 2 polyps at the hepatic flexure likely repeat colonoscopy 3 to 5 years Complications:: None immediately apparent Estimated blood obtained (mL): 2
== END 2020-04-03 12:21 | disposition home or self-care (01) ==
LOC: OUTP 08:54
PROVIDERS: PCP Nurse Practitioner Family; Visit Provider Surgery
PROC: 0DJD8ZZ Inspection of Lower Intestinal Tract, Via Natural or Artificial Opening Endoscopic (ICD-10-PCS; CPT 45385; principal; 2020-04-03 10:00)
DX: Z12.11 Encounter for screening for malignant neoplasm of colon (principal); K62.1 Rectal polyp; K57.30 Diverticulosis of large intestine without perforation or abscess without bleeding; K63.5 Polyp of colon; Z87.19 Personal history of other diseases of the digestive system; I11.0 Hypertensive heart disease with heart failure; I50.9 Heart failure, unspecified; K21.9 Gastro-esophageal reflux disease without esophagitis; E78.5 Hyperlipidemia, unspecified; I25.10 Atherosclerotic heart disease of native coronary artery without angina pectoris; F32.9 Major depressive disorder, single episode, unspecified; F41.9 Anxiety disorder, unspecified
CPT/HCPCS: 45385; 45380

== ENCOUNTER → 2020-04-30 15:23 | Outpatient (CLI) | payer OTHER, MEDICARE, SELFPAY ==
--- NOTE | 2020-04-30 15:31 | XR_ITS ---
PROCEDURE: XR CHEST PORTABLE CLINICAL HISTORY: COVID OUTPATIENT COVID 19 exposure COMPARISON: CR CXR2V XR chest 2V from 05/12/2018 DX CXR2V XR chest 2V from 06/11/2018 CR XR CHEST 2V from 08/18/2019 FINDINGS: Prior CABG . there is increased density in both lower lung zones which is chronic consistent with soft tissue attenuation and pericardial fat pad. No definite lobar consolidation or collapse evident. Stable 6 mm nodules present in the right upper lobe No acute bony abnormalities. IMPRESSION: No acute findings. Dictated by: Shayan Rea MD 04/30/2020 16:02 Shayan Rea MD in [place] 04/30/2020 16:02
[2020-04-30 15:53] LABS: Chloride 102 mmol/L (98-107); Potassium 3.7 mmoL/L (3.5-5.1); Sodium 140 mmol/L (136-145)
[2020-04-30 15:55] LABS: Alanine Aminotransferase 23 U/L (12-78); Aspartate Amino Transferase 27 U/L (14-36); Blood Urea Nitrogen 10 mg/dl (7-17); Estimated Glomerular Filt Rate 73 ml/min (>60); GFR (African American) 89 ML/MIN (>60)
[2020-04-30 15:56] LABS: Albumin Level 4.2 g/dl (3.5-5.0); Albumin/Globulin Ratio 1.2 (1.1-1.8); Alkaline Phosphatase 103 U/L (38-126); Anion Gap 10.7 mEq/L (5-15); Bilirubin,Total 0.4 mg/dl (0.2-1.3); Calcium 9.1 mg/dl (8.4-10.2); Carbon Dioxide 31 mmol/L (22.0-30.0); Globulin 3.5 g/dL (1.3-3.2); Glucose 110 mg/dl (74-100); Total Protein,Serum 7.7 g/dl (6.3-8.2)
[2020-04-30 16:09] LABS: Basophils % 0.5 % (0.1-2.0); Eosinophils # 0.1 K/mm3 (0.0-0.4); Eosinophils % 1.2 % (0.1-12.0); Hematocrit 36.3 % (37.0-47.0); Hemoglobin 11.9 g/dL (12.2-16.2); Lymphocytes # 2.3 K/mm3 (0.7-4.5); Lymphocytes % 28.8 % (10-50); Mean Corpuscular HGB Conc 32.7 g/dL (31.8-35.4); Mean Corpuscular Hemoglobin 26.6 pg (27.0-31.2); Mean Corpuscular Volume 81.2 fl (81-99); Mean Platelet Volume 7.6 fl (7.4-10.4); Monocytes # 0.4 K/mm3 (0.1-1.0); Monocytes % 5.1 % (1.7-9.3); Neutrophils # 5.1 K/mm3 (1.8-7.8); Neutrophils % 64.4 % (37.0-80.0); Platelet Count 368 K/mm3 (142-424); Red Blood Count 4.47 M/mm3 (4.20-5.40); Red Cell Distribution Width 14.4 % (11.5-17.5); White Blood Count 7.9 K/mm3 (4.8-10.8)
[2020-04-30 21:16] LABS: Adenovirus,PCR Not Detected (NotDetected); Bordetella Pertussis Not Detected (NotDetected); Chlamydophila Pneumoniae, PCR Not Detected (NotDetected); Coronavirus 19, PCR Not Detected (NotDetected); Coronavirus 229E Not Detected (NotDetected); Coronavirus NL63 Not Detected (NotDetected); Coronavirus OC43 Not Detected (NotDetected); Coronovirus HKU1,PCR Not Detected (NotDetected); Human Metapneumovirus Not Detected (NotDetected); Influenza A, PCR Not Detected (NotDetected); Influenza AH1, 2009 Not Detected (NotDetected); Influenza AH1, PCR Not Detected (NotDetected); Influenza AH3,PCR Not Detected (NotDetected); Influenza B, PCR Not Detected (NotDetected); Mycoplasma Pneumoniae, PCR Not Detected (NotDetected); Parainfluenza 1, PCR Not Detected (NotDetected); Parainfluenza 2, PCR Not Detected (NotDetected); Parainfluenza 3, PCR Not Detected (NotDetected); Parainfluenza 4, PCR Not Detected (NotDetected); Respiratory Syncytial Virus Not Detected (NotDetected); Rhinovirus/Enterovirus Not Detected (NotDetected)
== END ==
PROVIDERS: PCP Internal Medicine Adolescent Medicine; Visit Provider Internal Medicine Adolescent Medicine
DX: Z03.818 Encounter for observation for suspected exposure to other biological agents ruled out (principal)
CPT/HCPCS: 36415; 71045; 80053; 85025; 87581; 87633; 87798; U0003

== ENCOUNTER 2020-05-24 15:01 | Emergency (ER) | payer OTHER, MEDICARE, SELFPAY ==
[2020-05-24 15:26] VITALS: BP 137/82; PULSE 84; RESP 19; TEMP 36.9; O2SAT 99; BMI 34.5
--- NOTE | 2020-05-24 15:35 | HMH.EDUTC ---
[facility] Disposition Clinical Impression: Sinusitis Qualifiers: Sinusitis location: unspecified location Chronicity: unspecified Qualified Code(s): J32.9 - Chronic sinusitis, unspecified Disposition: Home, Self-Care Condition on Discharge: Good Instructions: Sore Throat, DI for Sinusitis, Preventing the Spread of Coronavirus Discharge Instructions Additional Instructions: *Monitor Temp, Over the counter Motrin or Tylenol as directed/as needed Tylenol every 4 hours and Motrin every 6 hours (as long as your family doctor has told you that you can take it) for fever or pain. and straight to ER if unable to lower temp less than 101.0 after medication given *Warm salt water gargles may help to soothe the throat *Throat Lozenges *Warm fluids like tea with honey may help to soothe the throat *Sleep elevated *Humidifier/Vaporizer *Flonase 2 sprays in each nostril daily but be aware that it may take 2-3 days before you notice improvement Follow up IMMEDIATELY for new or worsening symptoms or no Noticeable improvement over the next 48-72 hours. 911 for difficulty breathing or swallowing You was tested for today for COVID19 your test result should be back in the next 24-48 hours, you may call to the [facility] later today or tomorrow to see if your test results are back and the result [phone] [facility] hours are 9am-9pm You was given a handout with instructions for Self Quarantine and Self isolation for while you wait on test results and what to do if they are positive If you are positive the Health Dept will be contacting you also Prescriptions: Azithromycin [Z-Vinicio 250mg Tab] 250 mg PO DIRECTED #6 tab Transmission Status: Pending to [facility][id number] Referrals: Brittney Cano APRN [Primary Care Provider] - As needed Forms: Work/School Release Time of Disposition: 15:48 Medical Decision Making - Isaac Inquiry Pt receiving controlled substance: No Isaac was queried for this patient: No Vital Signs: 05/24/20 15:26 Temperature 98.4 F Temperature Source Oral Pulse Rate [Radial] 84 Respiratory Rate 19 Blood Pressure [Right Arm] 137/82 Blood Pressure Mean [Right Arm] 100 Blood Pressure Source [Right Arm] Automatic Cuff Blood Pressure Position [Right Arm] Sitting 02 Sat by Pulse Oximetry 99 Oxygen Delivery Method Room Air Orders (Tests/Meds): ORDERS Category Date Time Status Covid-19 Nasal PCR ([facility]) Routine Lab 05/24/20 15:12 Ordered Medical Decision Narrative: Patient states that she has taken a zpack recently without complications and reactions and denies any recent medication changes since last zpack [facility] HPI - General Stated complaint: sore throat, fever Time Seen by Provider: 05/24/20 15:35 Mode of Arrival: Ambulatory Source of Information: Patient Limitations: No Limitations Description of Symptoms (Recalled from Triage Doc. by RN): FEVER, STUFFY NOSE, SORE THROAT, HEADACHE SINCE YESTERDAY HEENT Symptoms (Recalled from RN notes): Yes Resp Symptoms (Recalled from RN notes): No Skin Symptoms (Recalled from RN notes): No MS Symptoms (Recalled from RN notes): No Functional Status (Recalled from RN notes): WNL - History of Present Illness Provider Complaint: Patient states that she has been having sore throat sinus pressure, headache and ears feeling full States that yesterday she had low grade fever on and off all day States that today she was still feeling bad so she come in - Related Data Home Medications Medication Instructions Recorded Confirmed Aspirin [Aspir 81] 81 mg PO DAILY 09/15/17 04/16/20 Calcium Carbonate/Vitamin D3 1 each PO BID 09/15/17 04/16/20 [Caltrate 600 Plus D3 Tablet] Cetirizine HCl 10 mg PO DAILY 09/15/17 04/16/20 Furosemide [Furosemide 20mg Tab*] 20 mg PO DAILY 09/15/17 04/16/20 Losartan Potassium 25 mg PO DAILY 09/15/17 04/16/20 Metoprolol Succinate [Toprol Xl] 150 mg PO DAILY 09/15/17 04/16/20 Omeprazole [Omeprazole 20mg 20 mg PO DAILY 09/15/17 04/16/20
[2020-05-24 16:23] VITALS: BP 137/82; PULSE 84; RESP 19; TEMP 36.9; O2SAT 99
[2020-05-24 20:22] LABS: UTC Strep Screen (Rapid) Negative (Negative)
--- NOTE | 2020-05-25 04:40 | PC.NURSE ---
Positive COVID results reported.
== END 2020-05-24 16:23 | disposition home or self-care (01) ==
PROVIDERS: Emergency Provider Nurse Practitioner; PCP Nurse Practitioner Family
DX: U07.1 COVID-19 (principal); I10 Essential (primary) hypertension; K21.9 Gastro-esophageal reflux disease without esophagitis; E78.5 Hyperlipidemia, unspecified; E03.9 Hypothyroidism, unspecified; F41.8 Other specified anxiety disorders; Z88.0 Allergy status to penicillin; Z79.899 Other long term (current) drug therapy
CPT/HCPCS: 87880; 99201; U0003

== ENCOUNTER → 2020-06-20 13:53 | Outpatient (CLI) | payer OTHER, MEDICARE, SELFPAY ==
--- NOTE | 2020-06-20 13:55 | MM_ITS ---
PROCEDURE: MM DIG MAMM DX UNILAT RT CAD Digital Breast Tomosynthesis Included CLINICAL INDICATION: ABN MAMM OF RT BREAST COMPARISON: MG SCBI MM Dig screening mamm BI w/CAD from 07/13/2017 MG SCBI MM Dig screening mamm BI w/CAD from 09/13/2018 MG MM DIG SCREENING MAMM BI W/CAD from 12/27/2019 TECHNIQUE: Standard CC and MLO images and 3D Tomosynthesis was obtained. R2 CAD reviewed. FINDINGS: Post primarily of. Small benign-appearing nodular densities are seen upper outer quadrant as noted previously. Alvin images confirm no suspicious abnormality. IMPRESSION: Stable tiny benign-appearing nodular densities and recommend the patient continue with yearly screening mammography BI-RAD Category: 2 Benign Finding(s) FOLLOW-UP: 6M 6Month Follow-up to return to normal yearly screening schedule (A letter has been sent to the patient regarding results of the study.) Dictated by: Dr. Dereck Ortiz MD 06/20/2020 14:14 Dr. Dereck Ortiz MD in [place] 06/20/2020 14:14
== END ==
PROVIDERS: PCP Nurse Practitioner Family; Visit Provider Nurse Practitioner Family
DX: R92.8 Other abnormal and inconclusive findings on diagnostic imaging of breast (principal)
CPT/HCPCS: 77061; 77065; G0279

== ENCOUNTER → 2020-11-02 10:23 | Outpatient (CLI) | payer OTHER, MEDICARE, SELFPAY ==
[2020-11-02 11:04] LABS: Basophils % 0.5 % (0.1-2.0); Eosinophils # 0.1 K/mm3 (0.0-0.4); Eosinophils % 0.9 % (0.1-12.0); Hematocrit 36.3 % (37.0-47.0); Hemoglobin 11.5 g/dL (12.2-16.2); Lymphocytes # 2.4 K/mm3 (0.7-4.5); Lymphocytes % 27.8 % (10-50); Mean Corpuscular HGB Conc 31.6 g/dL (31.8-35.4); Mean Corpuscular Hemoglobin 24.7 pg (27.0-31.2); Mean Corpuscular Volume 78.2 fl (81-99); Mean Platelet Volume 7.1 fl (7.4-10.4); Monocytes # 0.5 K/mm3 (0.1-1.0); Monocytes % 5.6 % (1.7-9.3); Neutrophils # 5.7 K/mm3 (1.8-7.8); Neutrophils % 65.1 % (37.0-80.0); Platelet Count 357 K/mm3 (142-424); Red Blood Count 4.64 M/mm3 (4.20-5.40); Red Cell Distribution Width 15.5 % (11.5-17.5); White Blood Count 8.8 K/mm3 (4.8-10.8)
[2020-11-02 11:46] LABS: Alanine Aminotransferase 22 U/L (12-78); Albumin Level 4.3 g/dl (3.5-5.0); Alkaline Phosphatase 114 U/L (38-126); Anion Gap 11.2 mEq/L (5-15); Aspartate Amino Transferase 24 U/L (14-36); Bilirubin,Direct 0.1 mg/dl (0.0-0.4); Bilirubin,Indirect 0.3 mg/dL (0.0-0.9); Bilirubin,Total 0.4 mg/dl (0.2-1.3); Bilirubin,Unconjugated 0.3 mg/dL (0.0-1.1); Blood Urea Nitrogen 13 mg/dl (7-17); Calcium 9.4 mg/dl (8.4-10.2); Carbon Dioxide 28 mmol/L (22.0-30.0); Chloride 105 mmol/L (98-107); Chol/HDL Ratio 3.8 (1-3.5); Cholesterol 139 mg/dl (140-200); Estimated Glomerular Filt Rate 73 ml/min (>60); GFR (African American) 89 ML/MIN (>60); Glucose 95 mg/dl (74-100); HDL Cholesterol 37 mg/dl (40-60); Potassium 4.2 mmoL/L (3.5-5.1); Sodium 140 mmol/L (136-145); Total Protein,Serum 7.3 g/dl (6.3-8.2); Triglycerides 155 mg/dl (30-150); VLDL Cholesterol 31 mg/dL (0-40)
[2020-11-02 11:57] LABS: Direct LDL Cholesterol 62.75 mg/dL (100-129)
[2020-11-02 12:03] LABS: Free Thyroxine Index 3.2 ug/dL (5.93-13.13); T4 (Thyroxine) 10.5 ug/dl (5.53-11.0); Triiodothryronine (T3) Uptake 30 % (23.5-40.5)
[2020-11-02 12:17] LABS: Thyroid Stimulating Hormone 1.89 uIU/mL (0.465-4.68)
== END ==
PROVIDERS: Visit Provider Physician Assistant
DX: R06.00 Dyspnea, unspecified (principal); R00.2 Palpitations; I25.810 Atherosclerosis of coronary artery bypass graft(s) without angina pectoris; R94.31 Abnormal electrocardiogram [ECG] [EKG]; I45.10 Unspecified right bundle-branch block; G47.33 Obstructive sleep apnea (adult) (pediatric); Z87.891 Personal history of nicotine dependence; Z95.1 Presence of aortocoronary bypass graft; Z79.899 Other long term (current) drug therapy
CPT/HCPCS: 36415; 80048; 80061; 80076; 83735; 84436; 84443; 84479; 85025; 93225

== ENCOUNTER → 2020-11-16 06:29 | Outpatient (CLI) | payer OTHER, MEDICARE, SELFPAY ==
--- NOTE | 2020-11-16 06:30 | CA_ITS ---
APPROVED REPORT EXAM: Comprehensive 2D, Doppler, and color-flow Echocardiogram Epoxy Specialist: Mayra Wang RVT Ht: 5 ft 9 in Wt: 239lbs BSA: 2.23 BP: 127/68 mmHg Indications: CAD,CABG,SOA,PALPS,HTN,HLD,EX SMOKER,RBBB,DEAN,CHF TDS-POOR WINDOWS 2D Dimensions LVOT 1.97 cm (M/F) 1.5-2.5 M-Mode Dimensions RVDd 3.29 cm (0.9-2.6) LA Diam 4.34 cm (1.9-4.0) LVDd 5.62 cm (3.5-5.7) Ao Diam 2.74 cm (2.0-3.7) LVDs 3.97 cm (3.5-5.7) IVSd 0.68 cm (0.6-1.1) PWd 0.64 cm (0.6-1.1) EF (Teich) 55.60% FS 29.40% EDV (Teich) 154.90 mL ESV (Teich) 68.80 mL LV Diastology E Decel Time 190.00 (160-240 msec) E/A Ratio 1.1 MED E' 9.40 (< 7 cm/sec) E'/MED E' Ratio 8.13 (>14) LAT E' 11.00 (<10 cm/sec) E/LAT E' Ratio 6.95 (>14) Aortic Valve AO Peak GR. 7.90 mmHg Mitral Valve MV E Max Anish. 76.00 (40-130 cm/s) MV A Velocity 68.00 (40-130 cm/s) E/A Ratio 1.13 MV Decel. Time 190.00 (160-240 ms) MV PHT 56.00 ms Pulmonary Valve PV Peak Velocity 88.00 (50-150 cm/s) Tricuspid Valve TR P. Velocity 110.00 cm/s RAP Estimate 10.00 mmHg RVSP 14.80 mmHg Left Ventricle Left atrium is mildly enlarged, left ventricle is normal size, mild concentric left ventricular hypertrophy, visually estimated ejection fraction 55% with no regional wall motion abnormality. Diastolic parameters are inconclusive. Right Ventricle Right atrium and right ventricle are mildly enlarged with normal contractility. Aortic Valve Aortic valve is minimally thickened and fibrosed, there is no aortic stenosis or aortic insufficiency. Mitral Valve Mitral valve is grossly normal, there is mild mitral regurgitation Tricuspid Valve Tricuspid valve grossly normal, there is mild tricuspid regurgitation, tricuspid regurgitation jet velocity is inadequate for calculation of the right ventricular systolic pressure Pulmonic Valve Pulmonic valve is poorly visualized. Great Vessels Aortic root is normal size. Pericardium No significant pericardial effusion noted. Conclusion 1. Mild biatrial enlargement, normal left ventricular size, mild concentric left ventricular hypertrophy, visually estimated ejection fraction 55% with no regional wall motion abnormality, diastolic parameters are inconclusive. 2. Mildly enlarged right ventricle with normal contractility. 3. Mild mitral and tricuspid regurgitation. 4. No significant pericardial effusion noted. Electronically signed by : Alex Ngo, 11/16/2020 11:04:58
--- NOTE | 2020-11-16 06:30 | CT_ITS ---
PROCEDURE: CT CHEST WO CON CLINCAL INDICATION: dyspnea COMPARISON: CT CT LUNG SCREENING from 11/08/2019 TECHNIQUE: Unenhanced CT chest with axial, coronal, and sagittal multiplanar reformations. Dose modulation, automated exposure control, and/or iterative reconstruction were used for dose reduction. FINDINGS: LUNGS: There is bibasilar atelectasis, but lungs are otherwise clear. No lobar consolidation, pleural effusions or pneumothorax. Focal calcification is noted in the right upper lobe, unchanged. Nodule in the left lower lobe measuring 3 millimeters (series 3, image 24), unchanged. Subpleural nodules in the right upper lobe measuring 3 millimeters is unchanged. Airway: The central airways are patent. HEART / GREAT VESSELS Heart:The heart is normal size without pericardial effusion. Vessels: Atherosclerotic calcifications are present in the aorta and multiple coronary arteries. Median sternotomy and coronary arterial grafts are noted. MEDIASTINUM Mediastinum: There is no hilar or mediastinal lymphadenopathy. UPPER ABDOMEN: Cholecystectomy is noted. Small hiatus hernia. Otherwise the evaluation of the upper abdominal solid viscera is limited due to lack of intravenous contrast. BONES Bones: Unremarkable Thyroid: The visualized thyroid gland is unremarkable IMPRESSION: No acute intrathoracic abnormality. Stable bilateral pulmonary nodules. Recommend continued annual low-dose lung CT. Dictated by: Kamilah Coffey 11/16/2020 11:13 Kamilah Coffey in [place] 11/16/2020 11:13
--- NOTE | 2020-11-16 06:30 | NM_ITS ---
APPROVED REPORT Exam: Nuclear Stress Test Indication: chest pain..short of breath..fatigue..dizziness Patient Location: Outpatient Stress Tech: Alejandra Constantino MO Tech:WEI Browning RT(R)(N) Ht: 5 ft 9 in Wt: 239 lbs Bra Size: 34 dd HR: 63 bpm BP: 146/76 mmHg BSA: 2.23 m2 BMI: 35.2 History: chest pain..short of breath..fatigue..dizziness Procedure: Patient received a 0.4 mg of intravenous Lexiscan, resting heart rate 63 bpm, resting blood pressure 146/76 mmHg, with Lexiscan maximum heart rate achived was 91 bpm which is Less than 85 % of the maximum predicted heart rate and blood pressure was 154/74 mmHg. With Lexiscan, patient denied any complaint of chest pain. Electrocardiogram Resting electrocardiogram showed sinus rhythm right ventricular conduction delay, with Lexiscan there is less than 1.[address] segment depression noted from the baseline EKG. The EKG portion of the Lexiscan is nondiagnostic. Cardiac Stress and Resting SPECT Images: Cardiac Stress and Resting SPECT images were obtained using technetium 99m Myoview 30.2 mCi stress and 10.75 mCi at rest. Gated SPECT for analysis of segmental wall motion and calculation of the ejection fraction also done. Prone images were also obtained. Cardiac stress and resting SPECT images show a fixed defect in the anterior wall with normal shaina gated SPECT is likely secondary to soft tissue attenuation, no reversible ischemia seen, computer derived ejection fraction 55% with no regional wall motion abnormality, right ventricle is mildly enlarged with normal contractility. This study is technically limited due to patient's body habitus. Conclusion: 1. The EKG portion of the Lexiscan is nondiagnostic. 2. No scintigraphic evidence of reversible ischemia seen, computer derived ejection fraction is 55% with no regional wall motion abnormality, right ventricle is mildly enlarged with normal contractility. This study is technically limited due to patient's body habitus. 3. Likely normal Lexiscan Myoview study. Electronically signed by : Alex Ngo, 11/16/2020 10:59:54
--- NOTE | 2020-11-16 06:30 | CA_ITS ---
APPROVED REPORT Exam: Pharmacologic Technologist: Alejandra Constantino, Ht: 5 ft 9 in Wt: 239 lbs BSA: 2.23 m2 HR: 63 bpm BP: 146/76 mmHg Medical History Medications: Lorazepam,,,,, Omeprazole,,,,, Levothyroxine,,,,, Metoprolol,,,,, Losartan,,,,, Atorvastatin,,,,, Escitalopram,,,,, Lasix,,,,, Albuterol,,,,, Montelukast,,,,, Nitroglycerin,,,,, CetIRIZINE,,,,, Stress Test Details Test: LEXISCAN HR Resting HR: 63 bpm Max Heart Rate (APMHR): 160.889045 bpm Max HR Achieved: 92 bpm Target HR (85% APMHR): 136.586719 bpm % of APMHR: 57.50 Recovery HR: 74 bpm BP Resting BP: 146/76 mmHg Max BP: 154/74 mmHg Recovery BP: 153.0/74.0 mmHg ECG Resting ECG: NSR, IVCD/RBBB Medications Administered Cardizem Injection ( mg at ) Clinical Reason for Termination: Completed Protocol Exercise duration: 04:00 min Highest Stage Achieved: Exercise capacity: 1.0 METs Stress ECG Conclusion Symptoms: No CP Arrhythmias/Ectopy: None ST-T Changes: <1.[address] Segment changes. Conclusion: Non-Diagnostic Electronically signed by : Alex Ngo, 11/16/2020 10:37:38
== END ==
PROVIDERS: PCP Nurse Practitioner Family; Visit Provider Physician Assistant
DX: R06.00 Dyspnea, unspecified; R00.2 Palpitations; I25.810 Atherosclerosis of coronary artery bypass graft(s) without angina pectoris; I45.10 Unspecified right bundle-branch block; R94.31 Abnormal electrocardiogram [ECG] [EKG]; G47.33 Obstructive sleep apnea (adult) (pediatric); Z87.891 Personal history of nicotine dependence; Z95.1 Presence of aortocoronary bypass graft; R40.0 Somnolence
CPT/HCPCS: 71250; 78452; 93017; 93306; A9502; J2785

== ENCOUNTER → 2020-11-29 09:48 | Outpatient (CLI) | payer OTHER, MEDICARE, SELFPAY ==
--- NOTE | 2020-11-29 09:49 | CA_ITS ---
APPROVED REPORT Reimbursement Liaison: ALIVIA/DARIA Laterality: Bilateral Study Quality: Good Indications: dizziness, ASCVD-hx OHS Risk Factors Hypertension: Hyperlipidemia CAD, Doppler Spectral Velocity Analysis ECA (R) 69.30/9.60 cm/s ECA (L) 67.40/10.30 cm/s dICA (R) 79.30/27.70 cm/s dICA (L) 102.10/41.10 cm/s Homer (R) 72.60/23.20 cm/s Homer (L) 86.00/32.10 cm/s pICA (R) 98.80/21.00 cm/s pICA (L) 52.00/15.40 cm/s dCCA (R) 93.50/25.40 cm/s dCCA (L) 80.10/15.00 cm/s pCCA (R) 102.50/19.50 cm/s pCCA (L) 105.50/21.00 cm/s Vert (R) 48.60/12.70 cm/s Vert (L) 46.20/11.60 cm/s ICA/CCA 1.06 ICA/CCA 1.25 Findings Duplex evaluation demonstrates antegrade flow of the bilateral Vertebral Arteries. Duplex evaluation demonstrates stenosis of the right proximal internal carotid artery <20%. Duplex evaluation demonstrates stenosis of the left proximal internal carotid artery <20%. Conclusion Duplex evaluation demonstrates antegrade flow of the bilateral Vertebral Arteries. Duplex evaluation demonstrates stenosis of the right proximal internal carotid artery <20%. Duplex evaluation demonstrates stenosis of the left proximal internal carotid artery <20%. Electronically signed by : Shayan Rea MD 11/29/2020 17:54:43
== END ==
PROVIDERS: PCP Nurse Practitioner Family; Visit Provider Internal Medicine Cardiovascular Disease
DX: R42 Dizziness and giddiness (principal)
CPT/HCPCS: 93880

== ENCOUNTER → 2020-12-05 13:44 | Outpatient (CLI) | payer OTHER, MEDICARE, SELFPAY ==
--- NOTE | 2020-12-05 13:49 | MM_ITS ---
PROCEDURE INFORMATION: Exam: MG Screening 3D Mammography Exam date and time: 12/05/2020 1:49 PM Age: 60 years old Clinical indication: Encounter for screening mammogram for malignant neoplasm of breast TECHNIQUE: Imaging protocol: Screening tomosynthesis and 2D mammography including computer-aided detection (CAD) when performed. COMPARISON: 1. MG MM DIG MAMM DX UNILAT RT CAD 06/20/2020 1:59 PM 2. MG MM DIG SCREENING MAMM BI W/CAD 12/27/2019 8:59 AM FINDINGS: MAMMOGRAPHY: Breast composition: The breast tissue is composed of scattered areas of fibroglandular density. Underlying fine nodular pattern particularly in the right upper outer quadrant is a stable finding Mass: None. Architectural distortion: None. Calcifications: No suspicious calcifications. Asymmetric density: None. Skin thickening: None. Axillary adenopathy: None. IMPRESSION: No mammographic evidence of malignancy. Annual screening is recommended unless otherwise clinically indicated. ASSESSMENT: BI-RADS Category 1: Negative
== END ==
PROVIDERS: PCP Nurse Practitioner Family; Visit Provider Nurse Practitioner Family
DX: Z12.31 Encounter for screening mammogram for malignant neoplasm of breast (principal)
CPT/HCPCS: 77063; 77067

== ENCOUNTER → 2020-12-10 08:38 | Outpatient (POV) | payer OTHER, MEDICARE, SELFPAY | PROVIDERS: Visit Provider Nurse Practitioner Family | DX: Z00.00 Encounter for general adult medical examination without abnormal findings (principal) ==

== ENCOUNTER → 2020-12-12 14:41 | Outpatient (CLI) | payer OTHER, MEDICARE, SELFPAY ==
[2020-12-12 14:43] LABS: Adenovirus F 40/41, stool Not Detected (NotDetected); Astrovirus Not Detected (NotDetected); Clostridium Difficile A/B, PCR Not Detected (NotDetected); Cryptosporidium Not Detected (NotDetected); Cyclospora Cayetanesis Not Detected (NotDetected); Entamoeba histolytica Not Detected (NotDetected); Enteroaggregative E coli Not Detected (NotDetected); Enteropathogenic E coli Not Detected (NotDetected); Enterotoxigenic E coli Not Detected (NotDetected); Giardia lamblia Not Detected (NotDetected); Norovirus Not Detected (NotDetected); Plesimonas Shigalloides, PCR Not Detected (NotDetected); Rotavirus A Not Detected (NotDetected); Salmonella, PCR Not Detected (NotDetected); Sapovirus Not Detected (NotDetected); Shiga-like toxin E coli Not Detected (NotDetected); Shigella Enterovasive E coli Not Detected (NotDetected); Vibrio Cholerae Not Detected (NotDetected); Vibrio, PCR Not Detected (NotDetected); Yersinia Entercolitica, PCR Not Detected (NotDetected)
[2020-12-12 17:42] LABS: Campylobacter Detected (NotDetected)
== END ==
LOC: RT 14:41
PROVIDERS: Nurse Practitioner Family; PCP Nurse Practitioner Family; Visit Provider Internal Medicine Pulmonary Disease
DX: R06.00 Dyspnea, unspecified (principal); R19.7 Diarrhea, unspecified; R10.84 Generalized abdominal pain; R19.4 Change in bowel habit; R11.2 Nausea with vomiting, unspecified; R15.0 Incomplete defecation; R15.2 Fecal urgency; A04.5 Campylobacter enteritis
CPT/HCPCS: 87506; 94060; 94618; 94726; 94727; 94729

== ENCOUNTER → 2020-12-25 10:44 | Outpatient (CLI) | payer OTHER, MEDICARE, SELFPAY ==
--- NOTE | 2020-12-25 10:44 | CT_ITS ---
PROCEDURE INFORMATION: Exam: CT Chest Without Contrast; Diagnostic; High Resolution Exam date and time: 12/25/2020 10:44 AM Age: 60 years old Clinical indication: Dyspnea; Patient HX: Restrictive lung disease TECHNIQUE: Imaging protocol: Diagnostic computed tomography of the chest without contrast. Exam was performed with high resolution protocol. Radiation optimization: All CT scans at this facility use at least one of these dose optimization techniques: automated exposure control; mA and/or kV adjustment per patient size (includes targeted exams where dose is matched to clinical indication); or iterative reconstruction. COMPARISON: CT CHEST WO CON 11/16/2020 6:32 AM FINDINGS: Lungs: 4 mm noncalcified nodule present within the left upper lung. Granulomatous densities noted within both lungs. Atelectatic changes noted within the left lung base without focal pneumonia. Pleural space: No pneumothorax. No pleural effusion. Heart: The heart demonstrates mild diffuse enlargement. There is mild atherosclerotic calcification of the coronary arteries. Aorta: No aortic aneurysm. Lymph nodes: There is no evidence of mediastinal or hilar lymphadenopathy. Calcified lymph nodes noted within the right hilar region. Spleen: The spleen demonstrates punctate calcifications, consistent with remote granulomatous organism exposure. Bones/joints: The thoracic spine demonstrates mild degenerative changes at multiple levels. There are sternal wires consistent with previous sternotomy incision. Soft tissues: There are no soft tissue masses or fluid collections. IMPRESSION: 1. 4 mm noncalcified nodule present within the left upper lung. For patients at low risk (minimal or absent history of smoking and of other known risk factors), no routine follow-up is indicated. For patients at high risk (history of smoking or of other known risk factors), consider optional CT Chest at 12 months. (Reference: Jesi) 2. Granulomatous densities noted within both lungs. 3. Atelectatic changes noted within the left lung base without focal pneumonia. REFERENCES: Jesi Borges, et al. Guidelines for Management of Incidental Pulmonary Nodules Detected on CT Images: From the Fleischner Society 2017. Radiology. 2017;284(1):228-243.
== END ==
PROVIDERS: PCP Nurse Practitioner Family; Visit Provider Internal Medicine Pulmonary Disease
DX: R06.02 Shortness of breath (principal)
CPT/HCPCS: 71250

== ENCOUNTER → 2021-01-14 08:53 | Outpatient (POV) | payer OTHER, MEDICARE, SELFPAY | PROVIDERS: Visit Provider Nurse Practitioner Family | DX: Z00.00 Encounter for general adult medical examination without abnormal findings (principal) ==

== ENCOUNTER → 2021-02-13 16:13 | Outpatient (CLI) | payer OTHER, MEDICARE, SELFPAY ==
[2021-02-13 17:19] LABS: Erythrocyte Sedimentation Rate 95 mm/hr (0-30)
[2021-02-13 17:33] LABS: C-Reactive Protein 27.7 mg/L (0-4)
[2021-02-15 11:14] LABS: RA Latex Turbid. <10.0 IU/mL (0.0-13.9)
[2021-02-15 15:32] LABS: Anti-Centromere B Antibodies <0.2 AI (0.0-0.9); Anti-DNA (DS) Ab Qn 4 IU/mL (0-9); Antinuclear Antibodies, IFA Negative (.); Antiscleroderma-70 Antibodies <0.2 AI (0.0-0.9); RNP Antibodies <0.2 AI (0.0-0.9); Sjogren's Anti-SS-A <0.2 AI (0.0-0.9); Sjogren's Anti-SS-B <0.2 AI (0.0-0.9)
[2021-02-15 19:23] LABS: Cytoplasmic (C-ANCA) <1:20 titer (Neg:<1:20); Perinuclear (P-ANCA) <1:20 titer (Neg:<1:20)
[2021-02-16 00:07] LABS: Anti-Cyclic Citrullinated Pept 6 units (0-19)
[2021-02-21 12:30] LABS: Aspergillus fumigatus IgG Negative (Negative); Pigeon Serum Abs Negative (Negative)
[2021-03-05 10:37] LABS: Antinuclear Antibodies (ANA) NEGATIVE
== END ==
PROVIDERS: Visit Provider Internal Medicine Pulmonary Disease
DX: R06.00 Dyspnea, unspecified (principal); J84.10 Pulmonary fibrosis, unspecified; J84.9 Interstitial pulmonary disease, unspecified; J98.4 Other disorders of lung; J44.9 Chronic obstructive pulmonary disease, unspecified
CPT/HCPCS: 36415; 84550; 85651; 86038; 86140; 86200; 86225; 86235; 86256; 86331; 86431; 86602; 86606; 86609

== ENCOUNTER → 2021-02-19 08:27 | Outpatient (CLI) | payer OTHER, MEDICARE, SELFPAY ==
--- NOTE | 2021-02-19 | MM_ITS ---
PROCEDURE: MM DIG MAMM DX UNILAT RT CAD Digital Breast Tomosynthesis Included Right breast ultrasound complete CLINICAL INDICATION: palp nodule COMPARISON: MG MM DIG SCREENING MAMM BI W/CAD from 12/27/2019 MG MM DIG MAMM DX UNILAT RT CAD from 06/20/2020 MG MM DIG SCREENING MAMM BI W/CAD from 12/05/2020 US US BREAST RT COMPLETE from 02/19/2021 TECHNIQUE: Standard CC and MLO images and 3D Tomosynthesis was obtained. R2 CAD reviewed. FINDINGS: There is mostly fatty replaced fibroglandular tissue. A marker is placed in the area of palpable abnormality in the 1 o'clock region of the right breast near the nipple. No mammographic abnormality evident at this region. Benign-appearing nodule is present in the central aspect of the right breast posterior 1/3 slightly inferior and may be due to a lymph node not significantly changed.. There are benign appearing calcifications in the right breast. Right breast ultrasound: At 1 o'clock near the nipple there is a 4 by 3 mm hypoechoic nodule with slightly lobulated border. The nodule appears well-circumscribed without obvious calcification. There is however some posterior acoustical shadowing. Also at 1 o'clock there is a 6 mm x 4 mm slightly hyperechoic subcutaneous nodule suggesting a lipoma. At 10 o'clock there is a 3 mm hypoechoic nodule with some enhanced through transmission of sound. IMPRESSION: Unremarkable mammogram. 4 mm hypoechoic nodule at 1 o'clock with some posterior acoustical shadowing and irregular margins mildly suspicious. Suggest ultrasound-guided fine needle aspiration. The hypoechoic nodule at 10 o'clock may be due to a complicated cyst for which six-month follow-up is suggested. BI-RAD Category: 4 Suspicious Abnormality-Biopsy Considered FOLLOW-UP: BIO Biopsy Recommended (A letter has been sent to the patient regarding results of the study.) Dictated by: Shayan Rea MD 02/25/2021 11:02 Shayan Rea MD in [place] 02/25/2021 11:02
== END ==
PROVIDERS: PCP Nurse Practitioner Family; Visit Provider Nurse Practitioner Family
DX: N63.12 Unspecified lump in the right breast, upper inner quadrant (principal)
CPT/HCPCS: 76641; 77061; 77065; G0279

== ENCOUNTER → 2021-03-19 09:12 | Outpatient (CLI) | payer OTHER, MEDICARE, SELFPAY ==
--- NOTE | 2021-03-19 09:19 | US_ITS ---
PROCEDURE: US FNA BREAST CLINICAL INDICATION: ABN MAMM Abnormal ultrasound, palpable abnormality COMPARISON: US US BREAST RT COMPLETE from 02/19/2021 MG MM DIG MAMM DX UNILAT RT CAD from 02/19/2021 FINDINGS: Following obtaining informed consent and time-out procedure under aseptic conditions and local anesthesia with 1 percent buffered lidocaine using sonographic guidance, 21 gauge needle was inserted into the hypoechoic nodule in the subcutaneous region of the right breast at o'clock corresponding to the palpable abnormality. The nodule immediately collapsed upon insertion of the needle. Minimal aspirate was obtained and sent to cytology for evaluation. Patient tolerated the procedure well without evidence of immediate complication. Cytology: Atypical. Please see speech pathologist report IMPRESSION: Uneventful ultrasound-guided FNA of the small palpable nodule at 1 o'clock showing atypical cytology. The pathologist recommend additional core needle biopsy however, the nodule completely collapsed. The nodule is not visible mammographically. Close sonographic and mammographic follow-up suggested. Biopsy can be performed if nodule recurs. Also suggest close follow-up with physical exam. Dictated by: Shayan Rea MD 03/29/2021 11:03 Shayan Rea MD in [place] 03/29/2021 11:03
== END ==
PROVIDERS: PCP Nurse Practitioner Family; Visit Provider Nurse Practitioner Family
DX: R92.8 Other abnormal and inconclusive findings on diagnostic imaging of breast (principal)
CPT/HCPCS: 10005

== ENCOUNTER 2021-07-14 10:51 | Emergency (ER) | payer OTHER, MEDICARE, SELFPAY ==
[2021-07-14 11:20] VITALS: BP 146/70; PULSE 74; RESP 18; TEMP 36.8; O2SAT 97; BMI 34.7
--- NOTE | 2021-07-14 11:29 | HMH.EDUTC ---
[facility] [place] Disposition Clinical Impression: URI (upper respiratory infection) Qualifiers: URI type: unspecified viral URI Qualified Code(s): J06.9 - Acute upper respiratory infection, unspecified Disposition: Home, Self-Care Condition on Discharge: Good Instructions: DI for Viral Upper Respiratory Infection -- Adult Additional Instructions: covid swab was sent to lab, call tomorrow for results. self isolate until test results are known to be negative No sign of a bacterial infection. Likely viral. Viruses can take 7-14 days to run their course. Nasal saline and bulb syringe or nose Teresa to remove nasal drainage to help with nasal congestion. Hard to eat, drink, sleep with nasal congestion so important to keep this cleaned out. Monitor temp. Tylenol or Motrin as needed for pain or fever Encourage fluids, water, Gatorade, Powerade, Pedialyte if infant/toddler/child Warm salt water gargles Warm fluids Sore throat lozenges Sleep elevated Humidifier/vaporizer Follow-up immediately for new or worsening symptoms or no noticeable improvement over the next 48-72 hours. Prescriptions: Benzonatate [Benzonatate 100mg cap] 100 mg PO BID PRN 7 Days #14 cap PRN Reason: Cough Transmission Status: Pending to [facility] # predniSONE [Prednisone 20mg Tab] 20 mg PO BID #10 tab Transmission Status: Pending to Chronicity # Referrals: Brittney Cano APRN [Primary Care Provider] - Time of Disposition: 11:38 Medical Decision Making - Isaac Inquiry Pt receiving controlled substance: No [facility] [place] HPI - General Chief complaint: Urgent Treatment Center Stated complaint: cough, congestion/runny nose, h/a Time Seen by Provider: 07/14/21 11:29 Mode of Arrival: Ambulatory Source of Information: Patient Limitations: No Limitations - History of Present Illness Provider Complaint: 60 yr old female presents for cough,nasal congestion, sinus pressure, and clear nasal drainage - Related Data Home Medications Medication Instructions Recorded Confirmed Aspirin [Aspir 81] 81 mg PO DAILY 09/15/17 03/07/21 Calcium Carbonate/Vitamin D3 1 each PO BID 09/15/17 03/07/21 [Caltrate 600 Plus D3 Tablet] Cetirizine HCl 10 mg PO DAILY 09/15/17 03/07/21 Furosemide [Furosemide 20mg Tab*] 20 mg PO DAILY 09/15/17 03/07/21 Losartan Potassium 25 mg PO DAILY 09/15/17 03/07/21 Omeprazole [Omeprazole 20mg 20 mg PO DAILY 09/15/17 03/07/21 Capsule] Trazodone HCl 100 mg PO DAILY 09/15/17 03/07/21 Montelukast Sodium [Singulair 10mg 10 mg PO PM 12/25/17 03/07/21 tablet] Multivit-Min/Folic Acid/Biotin 1 each PO DAILY 12/25/17 03/07/21 [Hair, Skin and Nails Caplet] azelastine 137 mcg (0.1 %) nasal 137 mcg INTRANASAL DAILY 30 Days 07/27/18 03/07/21 spray aerosol ml budesonide-formoterol HFA 160 1 puff INHALATION DAILY 30 Days g 07/27/18 03/07/21 mcg-4.5 mcg/actuation aerosol inhaler escitalopram oxalate 20 mg tablet 20 mg PO DAILY 30 Days tab 07/27/18 03/07/21 levothyroxine 112 mcg tablet 112 mcg PO DAILY 30 Days tab 07/27/18 03/07/21 lorazepam 0.5 mg tablet 0.5 mg PO DAILY 20 Days tab 07/27/18 03/07/21 albuterol sulfate 90 mcg/actuation INHALATION 04/05/20 03/07/21 aerosol inhaler beclomethasone dipropionate 80 INTRANASAL 11/13/20 03/07/21 mcg/actuation nasal HFA inhaler Previous Rx's Medication Instructions Recorded atorvastatin 80 mg tablet 80 mg PO DAILY #90 tab 12/06/20 meloxicam 15 mg tablet 15 mg PO DAILY 30 Days #30 tab 02/18/21 methylprednisolone 4 mg tablets in 4 mg PO PER PKG DIR #21 tab 02/18/21 a dose pack nitroglycerin 0.4 mg sublingual See Rx Instructions .ROUTE 03/01/21 tablet .COMPLEX #25 tab isosorbide mononitrate 30 mg See Rx Instructions .ROUTE 04/30/21 tablet,extended release 24 hr .COMPLEX #30 tab metoprolol succinate 200 mg 200 mg PO DAILY #30 tab 06/17/21 tablet,extended release 24 hr Benzonatate [Benzonatate 100mg 100 mg PO BID PRN 7 Days #14 cap 07/14/21 cap]
[2021-07-14 11:57] VITALS: BP 146/70; PULSE 74; RESP 18; TEMP 36.8; O2SAT 97
== END 2021-07-14 12:02 | disposition home or self-care (01) ==
PROVIDERS: Emergency Provider Nurse Practitioner Family; PCP Nurse Practitioner Family
DX: J06.9 Acute upper respiratory infection, unspecified (principal); F41.8 Other specified anxiety disorders; K21.9 Gastro-esophageal reflux disease without esophagitis; I10 Essential (primary) hypertension; E78.5 Hyperlipidemia, unspecified; I50.9 Heart failure, unspecified; I25.10 Atherosclerotic heart disease of native coronary artery without angina pectoris; Z87.891 Personal history of nicotine dependence; Z20.822 Contact with and (suspected) exposure to COVID-19
CPT/HCPCS: 99202; C9803; G0463; U0003; U0005

== ENCOUNTER 2021-09-28 15:54 | Emergency (ER) | payer OTHER, MEDICARE, SELFPAY ==
[2021-09-28 16:05] VITALS: BP 133/64; PULSE 82; RESP 18; TEMP 36.4; O2SAT 95; BMI 34.7
--- NOTE | 2021-09-28 16:19 | HMH.EDUTC ---
[facility] [place] Clinical Impression: UTI (urinary tract infection) Qualifiers: Urinary tract infection type: site unspecified Hematuria presence: with hematuria Qualified Code(s): N39.0 - Urinary tract infection, site not specified; R31.9 - Hematuria, unspecified Disposition: Home, Self-Care Condition on Discharge: Good Instructions: Urinary Tract Infection, DI for Urinary Tract Infection (UTI) Additional Instructions: Drink plenty of fluids. Take tylenol or ibuprofen for pain or fever. Take the medications as directed. Follow up with your regular doctor. GO TO THE ER FOR ANY WORSENING SYMPTOMS The pyridium will make your urine turn orange, this is an expected side effect. It will stain your clothes if it comes into contact with them. We will culture the urine. That will tell what bacteria is causing your infection and which antibiotics will treat it best. Sometimes the first antibiotic we prescribe turns out to not work against different bacteria. So, make sure you follow up within 3 days if you are not getting better. Prescriptions: Ondansetron [Zofran 4mg ODT] 4 mg PO Q8HP PRN #20 tab PRN Reason: Nausea Transmission Status: Pending to [facility] # Ciprofloxacin HCl [Cipro 500mg Tab] 500 mg PO BID 7 Days #14 tab Transmission Status: Pending to [facility] # Phenazopyridine HCl [Pyridium 200mg Tablet] 200 pow PO TID #6 tab Transmission Status: Pending to [facility] # Referrals: Brittney Cano APRN [Primary Care Provider] - Time of Disposition: 16:48 Medical Decision Making - Medical Records Medical records reviewed: No: I reviewed the patient's medical records. - Isaac Inquiry Pt receiving controlled substance: No Vital Signs: 09/28/21 16:05 Temperature 97.5 F L Temperature Source Temporal Artery Scan Pulse Rate [Left] 82 Respiratory Rate 18 Blood Pressure [Right Arm] 133/64 Blood Pressure Mean [Right Arm] 87 02 Sat by Pulse Oximetry 95 - Lab Data Lab results reviewed: Yes: I reviewed the patient's lab results. Lab Results 09/28/21 16:21: Urine Color [place], Urine Appearance Turbid, Urine pH 5.0, Ur Specific [place] 1.025, Urine Protein 2+, Urine Glucose (UA) Trace, Urine Ketones Small, Urine Blood Negative, Urine Nitrate Positive A, Urine Bilirubin 1+ A, Urine Urobilinogen 2, Ur Leukocyte Esterase Trace Orders (Tests/Meds): ORDERS Category Date Time Status Urine Culture Stat Micro 09/28/21 16:21 Ordered [facility] [place] - General Stated complaint: f Time Seen by Provider: 09/28/21 16:19 Mode of Arrival: Ambulatory Source of Information: Patient Limitations: No Limitations Description of Symptoms (Recalled from Triage Doc. by RN): pt c/o burning and pain with urination since this am. HEENT Symptoms (Recalled from RN notes): No Resp Symptoms (Recalled from RN notes): No Skin Symptoms (Recalled from RN notes): No MS Symptoms (Recalled from RN notes): No Functional Status (Recalled from RN notes): wnl - History of Present Illness Provider Complaint: She states that since this morning she has had low back pain, dysuria, urinary frequency and chills. She does get uti's occasionally and she feels like that is what's going on now. - Related Data Home Medications Medication Instructions Recorded Confirmed Aspirin [Aspir 81] 81 mg PO DAILY 09/15/17 03/07/21 Calcium Carbonate/Vitamin D3 1 each PO BID 09/15/17 03/07/21 [Caltrate 600 Plus D3 Tablet] Cetirizine HCl 10 mg PO DAILY 09/15/17 03/07/21 Furosemide [Furosemide 20mg Tab*] 20 mg PO DAILY 09/15/17 03/07/21 Losartan Potassium 25 mg PO DAILY 09/15/17 03/07/21 Omeprazole [Omeprazole 20mg 20 mg PO DAILY 09/15/17 03/07/21 Capsule] Trazodone HCl 100 mg PO DAILY 09/15/17 03/07/21 Montelukast Sodium [Singulair 10mg 10 mg PO PM 12/25/17 03/07/21 tablet] Multivit-Min/Folic Acid/Biotin 1 each PO DAILY 12/25/17 03/07/21 [Hair, Skin and Nails Capl
[2021-09-28 16:26] LABS: Apearance,Urine Turbid (Clear); Color,Urine Orange (Yellow); Glucose,Urine (UA) Trace (Negative); Protein,Urine 2+ (Negative); Specific Gravity, Urine 1.025 (1.005-1.030)
[2021-09-28 16:27] LABS: Bilirubin,Urine 1+ (Negative); Blood, Urine Negative (Negative); Ketones,Urine SMALL (Negative); UTC Leukocyte Esterase,Urine Trace (Negative); UTC Nitrate,Urine Positive (Negative); Urobilinogen,Urine 2 EU/dl (0.2)
[2021-09-28 16:59] VITALS: BP 133/64; PULSE 82; RESP 18; TEMP 36.4
== END 2021-09-28 16:59 | disposition home or self-care (01) ==
PROVIDERS: Emergency Provider Nurse Practitioner Family; PCP Nurse Practitioner Family
DX: N30.01 Acute cystitis with hematuria (principal); F41.8 Other specified anxiety disorders; K21.9 Gastro-esophageal reflux disease without esophagitis; E78.5 Hyperlipidemia, unspecified; I10 Essential (primary) hypertension; E03.9 Hypothyroidism, unspecified
CPT/HCPCS: 81003; 87086; 99212; G0463

== ENCOUNTER 2021-10-21 08:47 | Outpatient (RCR) | payer OTHER, MEDICARE, SELFPAY | END 2021-10-21 09:51 | disposition home or self-care (01) | LOC: OT 08:47 | PROVIDERS: PCP Nurse Practitioner Family; Visit Provider Orthopaedic Surgery Hand Surgery | DX: R20.0 Anesthesia of skin (principal) | CPT/HCPCS: 97165 ==

== ENCOUNTER → 2021-11-05 08:22 | Outpatient (POV) | payer OTHER, MEDICARE, SELFPAY | PROVIDERS: Visit Provider Dermatology | DX: Z00.00 Encounter for general adult medical examination without abnormal findings (principal) ==

== ENCOUNTER 2022-02-14 08:00 | Outpatient (RCR) | payer OTHER, MEDICARE, SELFPAY ==
--- NOTE | 2021-10-22 11:01 | HMH.PTOPEV ---
PT Outpatient Evaluation Rehab PT Outpatient Evaluation Start: 10/22/21 09:56 Freq: Status: Active Protocol: Document 10/22/21 10:46 ISAAC (Rec: 10/22/21 11:01 ISAAC [id number]) Electronically Signed By Rodriguez Correa, PT 10/22/21 10:46 Outpatient Therapy Subjective History Subjective History Pt is 61 yowf who presents with c/o B UE worsening numbness/tingling and pain x ~ 6 mos. She reports, I've had this kind of problems for years, but its just getting really bad now. They told me for a long time I had carpal tunnel, but when they did the tests (EMG and NCV) they said everything was fine in my wrists. Pt c/o frequent headaches for many years as well, and soreness on B sides of the neck. She reports PMH of HTN, chronic LBP, and CABG x 4v. Chief Complaint Pain,Paresthesia Symptom Type Ache Symptoms Relieved By Rest/Positioning,Shaking Symptoms Aggravated By Sitting Prior Functional Limitations None Current Functional Limitations Reaching,Lifting,Housework, Sleeping,Sitting,Recreation Activity Symptom Description Constant but Variable,Activity Dependent Level of pain today (0-10) 5 Pain scale - at its worst (0-10) 7 Cervical Eval Palpation Cervical Muscles R Cervical Paraspinal,L Cervical Paraspinal,R Suboccipital,L Suboccipital,R Upper Trapezius,L Upper Trapezius Cervical/Thoracic Palpation Findings Tenderness Posture Head/C-Spine Posture Sitting Position Flexed Head/C-Spine Posture Standing Position Flexed Flexibility Deficits Upper Trapezius Muscle Length (R) Mild Tightness,(L) Mild Tightness Levaetor Scapulae Muscle Length (R) Mild Tightness,(L) Mild Tightness Pectoralis Major Muscle Length (R) Mild Tightness,(L) Mild Tightness Pectoralis Minor Muscle Length (R) Mild Tightness,(L) Mild Tightness Passive Joint Mobility Cervical PIVM Dec: L C5/6 R C6/7 WNL: R OA L OA R AA L AA R C2/3 L C2/3 R C3/4 L C3/4 R C4/5 L C4/5 R C5/6 L C6/7 R C7/T1 L C7/T1 AROM Cervical Spine Extension Active Range of 0-40 Motion (degrees) Cervical Spine Flexion Active Range of 0-60 Motion (degrees) Cervical Spine Right Lateral Flexion 0-40 Active Range of Motion (degrees) Cervical Spine Left Lateral Flexion 0-40 Active Range of Motion (degrees) Cervical Spine Right Rotation Active 0-65 Range of Motion (degrees) Cervical Spine Left Rotation Active 0-65 Range of Motion (degrees) MMT Bilateral Deltoid (C5) 5 Normal Biceps Brachii Strength Grade 5 Normal Wrist Extension Strength Grade 5 Normal Triceps Brachii Strength Grade 5 Normal Wrist Flexion Strength Grade 5 Normal Extensor Pollicis Longus Strength Grade 5 Normal Finger Abduction Strength Grade 5 Normal Special Test C-Spine Foraminal Compression ([place]) Negative Left,Negative Right Test C-spine Verterbral Accessory Movements Central P/A [place] that Elicit Symptoms C-Spine Foraminal Distraction Test Positive C-Spine Compression Test Negative Left,Negative Right Outpatient Therapy Assessment Impairments Problems/Impairmments Palpation Tenderness,Impaired Range of Motion,Impaired Endurance,Impaired Sitting, Impaired Driving,Impaired Lifting,Impaired Household Care,Impaired Recreational Activities,Subjective C/O Pain ,Impaired Self Care/Self Management Prognosis Rehab Potential Good Clinical Impression Consistent with Diagnosis Yes Short Term Goals Number of Weeks 2 Decreased Palpation Tenderness Yes Increase Range of Motion Yes: cervical by 5 deg Restore Ability to Lift Objects to Waist Yes Level Decrease Subjective C/O Pain Yes: 09/12 Patient to be Ind w/ HEP Yes Policy Intern Goals Number of Weeks 4 Increase Range of Motion Yes: cervical by 10 deg Increase Endurance Yes Increase Ability to Sit Yes Restore Ability to Lift Objects to Yes Shoulder Level Return to Recreational Activities Yes Decrease Subjective C/O Pain Yes: 07/15 Patient to be Ind w/ Advanced HEP Yes Outpatient Therapy Plan of Care Treatment Plan May Include Therapeutic Exercise Including Home Yes Exercise Program Manual Therapy Techniques Yes Neuromuscular Re-education Yes Therapeutic Activities to Return to Yes Previous Functional/Work Level ADL/Self Care Education Yes Mechanical Traction Yes Dry Needling Yes Thermal Modalities Yes Electrical Stimulation Yes Ultrasound/Phonophoresis Yes Iontophoresis Yes Orthotics/Bracing/Splinting Yes Massage Yes Manual Lymphatic Drainage Yes Eval/Re-Eval Yes Frequency Times per week 2 Duration Number of Weeks 4 Addendums This patient is a candidate for social Yes or vocational rehab? Patient/Guardian verbally acknowledges Yes understanding of treatment program and consents to further treatment? Patient/Guardian verbally acknowledges Yes understanding of diagnosis, prognosis and goals for treatment? G -code Required No Eval Complexity PT Charges 54801 - High Complexity Shoulder/Elbow Eval Shoulder Objective Measurements Elbow Objective Measurements PHYSICIAN CERTIFICATION: I certify the specified therapy services for Kina Samaniego Young are required, authorized, and reviewed every 30 days.
--- NOTE | 2021-11-12 09:12 | HMH.RHREAS ---
Rehab Reassessment Rehab OP Re-assessment Start: 11/12/21 09:01 Freq: Status: Active Protocol: Document 11/12/21 09:02 ISAAC (Rec: 11/12/21 09:11 ISAAC [id number]) Electronically Signed By Rodriguez Correa, PT 11/12/21 09:02 Rehab Re-assessment Subjective Subjective Pt reports overall neck pain is decreased with less instances of headache. She presents this date with c/o pain in the low back x ~ 20 yrs and new orders from MD for treatment of low back. Objective Objective Notes Cervical spine: ROM remains WFL with less muscle tightness in B UT and Lev Scap. Remains tender to palpation worse on L Lev Scap scapular insertion. Lumbar Spine: Increased pain with forward flexion activities. AROM (in deg) FLEX= 0-60, EXT= 0-15, R SB= 0-15, L SB= 0-15. Muscle tightness noted in B hams, piriformis, and hip flexors. Pain decreased with extension and manual traction. Pain- 5/10 currently, 7/10 at worst. Assessment Progress Assessment Progressing as Expected Assessment Notes Pt has responded well to HEP with improved muscle tightness in the neck B. Headaches continue intermittently, but with less frequency. Signs and symptoms in lumbar spine consistent with DDD with associated muscle tightness and core instability. Patient goals met none Goals Not Met ST,2,3,4,5 LT,2 ,3,4,5,6,7 Revised Goals LTG: #8 = Lumbar ROM increased by 10 deg Plan Plan Continue per initial POC with additional treatment for Lumbar Spine as well. Frequency of Therapy 2 x/wk Duration of therapy 4 wks Time and Billing Re-Eval Time 19 Re-Eval Billing Units 1 PHYSICIAN CERTIFICATION: I certify the specified therapy services for Kina Queen are required, authorized, and reviewed every 30 days.
--- NOTE | 2021-12-09 13:59 | HMH.RHREAS ---
Rehab Reassessment Rehab OP Re-assessment Start: 11/12/21 09:01 Freq: Status: Active Protocol: Document 12/09/21 13:53 ISAAC (Rec: 12/09/21 13:59 PHOMASTER [id number]) Electronically Signed By Rodriguez Correa, PT 12/09/21 13:53 Rehab Re-assessment Subjective Subjective Pt reports intermittent radicular symptoms in R LE to the knee distally. She does report less neck pain and stiffness, but I still wake up with my fingers numb on my left hand sometimes. Objective Objective Notes Cervical spine: ROM is now WNL with less muscle tightness in B UT and Lev Scap. Lumbar Spine: Increased pain with forward flexion activities. AROM (in deg) FLEX= 0-65, EXT= 0-15, R SB= 0-15, L SB= 0-17. Pain- 4/10 currently, 6/10 at worst. Assessment Progress Assessment Progressing as Expected Assessment Notes Much improved cervical pain and ROM which is a significant improvement. She concintues to have low back pain, but this is also decreasing slightly. ROM of lumbar spine is slightly improved, as well. Patient goals met ST,2,3,4,5 Goals Not Met LT,2,3,4,5,6,7,8 Revised Goals none Plan Plan Continue per initial POC with additional treatment for Lumbar Spine as well. Frequency of Therapy 2 x/wk Duration of therapy 4 wks Time and Billing Re-Eval Time 14 Re-Eval Billing Units 1 PHYSICIAN CERTIFICATION: I certify the specified therapy services for Kina Queen are required, authorized, and reviewed every 30 days.
--- NOTE | 2022-01-10 10:21 | HMH.RHREAS ---
Rehab Reassessment Rehab OP Re-assessment Start: 11/12/21 09:01 Freq: Status: Active Protocol: Document 01/10/22 10:18 ISAAC (Rec: 01/10/22 10:21 PHOMASTER [id number]) Electronically Signed By Rodriguez Correa, PT 01/10/22 10:18 Rehab Re-assessment Subjective Subjective Pt reports, Yesterday was really bad in my neck and my back. I didn't do anything different, I've just been sitting a lot lately. Pain today 10/13, Pain yesterday . Objective Objective Notes Cervical spine: ROM remains WNL throughout. B UT increased muscle spasms this date with trigger pt noted to R side. Lumbar Spine: Increased pain with forward flexion activities. AROM (in deg) FLEX= 0-65, EXT= 0-17, R SB= 0-16, L SB= 0-17. Assessment Progress Assessment Slower Than Expected Assessment Notes Pt has shown continued improvements in AROM, but pain remains problematic with no specific acctivity that increases it. Pt has increased muscle spasm this date in cervical spine area. Symptoms suggest increased pain in lower lumbar spine and B SI jts produces a postural stress on the upper back and cervical spine. Patient goals met ST,2,3,4,5 Goals Not Met LT,2,3,4,5,6,7,8 Revised Goals none Plan Plan Continue per initial POC with additional treatment for Lumbar Spine as well. Frequency of Therapy 2 x/wk Duration of therapy 4 wks Time and Billing Re-Eval Time 16 Re-Eval Billing Units 1 PHYSICIAN CERTIFICATION: I certify the specified therapy services for Kina Queen are required, authorized, and reviewed every 30 days.
--- NOTE | 2022-02-06 10:50 | HMH.RHREAS ---
Rehab Reassessment Rehab OP Re-assessment Start: 11/12/21 09:01 Freq: Status: Active Protocol: Document 02/06/22 10:46 ISAAC (Rec: 02/06/22 10:50 ISAAC [id number]) Electronically Signed By Rodriguez Correa, PT 02/06/22 10:46 Rehab Re-assessment Subjective Subjective Pt reports pain 4/10 today, but worse with driving to/from vacation last week. She reports, I feels better when I leaver here, but it just doesn't seem to last. Objective Objective Notes Cervical spine AROM (in deg): FLEX= 0-50, EXT= 0-35, R SB= 0 -25, L SB= 0-30, R ROT= 0-60, L ROT= 0-60. Lumbar Spine: Increased pain with forward flexion activities. AROM (in deg) FLEX= 0-65, EXT= 0-20, R SB= 0-20, L SB= 0-20. Assessment Progress Assessment Progressing as Expected Assessment Notes Continues to show significant improvements in AROM both cervical spine and lumbar spine. Pain remains consistent at 4-5/10 level generally, but is much worse with certain activities. She may benefit from injections in the lower lumbar spine or L SI area. Patient goals met ST,2,3,4,5 Goals Not Met LT,2,3,4,5,6,7,8 Revised Goals none Plan Plan Continue per initial POC with additional treatment for Lumbar Spine as well. Frequency of Therapy 2 x/wk Duration of therapy 4 wks Time and Billing Re-Eval Time 15 Re-Eval Billing Units 1 PHYSICIAN CERTIFICATION: I certify the specified therapy services for Kina Queen are required, authorized, and reviewed every 30 days.
== END 2022-02-14 08:05 | disposition home or self-care (01) ==
LOC: PT 08:00
PROVIDERS: PCP Nurse Practitioner Family; Visit Provider Nurse Practitioner Family
DX: M54.12 Radiculopathy, cervical region (principal); M54.50 Low back pain, unspecified; M51.36 Other intervertebral disc degeneration, lumbar region
CPT/HCPCS: 97010; 97012; 97014; 97033; 97110; 97112; 97140; 97163; 97164; G0283

== ENCOUNTER → 2022-04-16 10:08 | Outpatient (CLI) | payer OTHER, MEDICARE, SELFPAY ==
[2022-04-16 10:55] LABS: Basophils % 0.6 % (0.1-2.0); Eosinophils # 0.1 K/mm3 (0.0-0.4); Eosinophils % 1.4 % (0.1-12.0); Hematocrit 36.5 % (37.0-47.0); Hemoglobin 10.6 g/dL (12.2-16.2); Lymphocytes % 35.5 % (10-50); Mean Corpuscular HGB Conc 29.1 g/dL (31.8-35.4); Mean Corpuscular Hemoglobin 23.6 pg (27.0-31.2); Mean Corpuscular Volume 80.8 fl (81-99); Mean Platelet Volume 7.1 fl (7.4-10.4); Monocytes # 0.4 K/mm3 (0.1-1.0); Monocytes % 7.8 % (1.7-9.3); Neutrophils # 3.1 K/mm3 (1.8-7.8); Neutrophils % 54.6 % (37.0-80.0); Platelet Count 326 K/mm3 (142-424); Red Blood Count 4.52 M/mm3 (4.20-5.40); Red Cell Distribution Width 15.6 % (11.5-17.5); White Blood Count 5.6 K/mm3 (4.8-10.8)
[2022-04-16 12:26] LABS: Alanine Aminotransferase 22 U/L (12-78); Albumin Level 3.8 g/dl (3.5-5.0); Alkaline Phosphatase 129 U/L (38-126); Anion Gap 14.3 mEq/L (5-15); Aspartate Amino Transferase 28 U/L (14-36); Bilirubin,Indirect 0.2 mg/dL (0.0-0.9); Bilirubin,Total 0.2 mg/dl (0.2-1.3); Bilirubin,Unconjugated 0.2 mg/dL (0.0-1.1); Blood Urea Nitrogen 12 mg/dl (7-17); Calcium 8.8 mg/dl (8.4-10.2); Carbon Dioxide 27 mmol/L (22.0-30.0); Chloride 102 mmol/L (98-107); Chol/HDL Ratio 3.3 (1-3.5); Cholesterol 105 mg/dl (140-200); Estimated Glomerular Filt Rate 85 ml/min (>60); GFR (African American) 103 ML/MIN (>60); Glucose 99 mg/dl (74-100); HDL Cholesterol 32 mg/dl (40-60); Magnesium 1.7 mg/dl (1.6-2.3); Potassium 4.3 mmoL/L (3.5-5.1); Sodium 139 mmol/L (136-145); Total Protein,Serum 6.7 g/dl (6.3-8.2); Triglycerides 189 mg/dl (30-150); VLDL Cholesterol 38 mg/dL (0-40)
[2022-04-16 12:37] LABS: Direct LDL Cholesterol 41.32 mg/dL (100-129)
[2022-04-16 12:45] LABS: Free T4 (Free Thyroxine) 0.92 ng/dl (0.78-2.19)
== END ==
PROVIDERS: PCP Nurse Practitioner Family; Visit Provider Physician Assistant
DX: R42 Dizziness and giddiness (principal); R00.2 Palpitations; I25.810 Atherosclerosis of coronary artery bypass graft(s) without angina pectoris; I10 Essential (primary) hypertension; E78.2 Mixed hyperlipidemia; R94.31 Abnormal electrocardiogram [ECG] [EKG]; Z95.1 Presence of aortocoronary bypass graft
CPT/HCPCS: 36415; 80048; 80061; 80076; 83735; 84439; 84443; 85025

== ENCOUNTER 2022-04-20 10:59 | Emergency (ER) | payer OTHER, MEDICARE, SELFPAY ==
[2022-04-20 11:10] VITALS: BP 138/75; PULSE 67; RESP 18; TEMP 36.6; O2SAT 98; BMI 33.6
[2022-04-20 11:22] VITALS: BP 138/75; PULSE 67; RESP 18; TEMP 36.6; O2SAT 98
--- NOTE | 2022-04-20 11:24 | EXP.UTC ---
Discharge Plan Disposition Patient Disposition: Home, Self-Care Condition: Good Prescriptions Prescriptions: New nitrofurantoin monohyd/m-cryst [Macrobid] 100 mg capsule 100 mg PO Q12H 7 Days Qty: 14 0RF Rx Instructions: must administer with a meal/food phenazopyridine [Pyridium] 200 mg tablet 200 mg PO Q8H 2 Days Qty: 6 0RF No Action levothyroxine 112 mcg tablet 112 mcg PO DAILY 30 Days budesonide-formoterol 160-4.5 mcg/actuation HFA aerosol inhaler 1 puff INHALATION DAILY 30 Days lorazepam 0.5 mg tablet 0.5 mg PO DAILY 20 Days azelastine 137 mcg (0.1 %) aerosol,spray 137 mcg INTRANASAL DAILY 30 Days colestipol 1 gram tablet 1 g PO DAILY albuterol sulfate 90 mcg/actuation HFA aerosol inhaler INHALATION levocetirizine 5 mg tablet 5 mg PO DAILY nitroglycerin 0.4 mg tablet, sublingual See Rx Instructions .ROUTE .COMPLEX Qty: 25 1RF Dose Instruction: ONE TABLET UNDER TONGUE NEEDED FOR CHEST PAIN EVERY 5 MINUTES;DO NOT EXCEED 2 DOSES PER EPISODE Rx Instructions: ONE TABLET UNDER TONGUE NEEDED FOR CHEST PAIN EVERY 5 MINUTES;DO NOT EXCEED 2 DOSES PER EPISODE atorvastatin 80 mg tablet 80 mg PO DAILY Qty: 90 3RF metoprolol succinate 200 mg tablet extended release 24 hr See Rx Instructions .ROUTE .COMPLEX Qty: 30 5RF Dose Instruction: TAKE 1 TABLET BY MOUTH DAILY Rx Instructions: TAKE 1 TABLET BY MOUTH DAILY aspirin 81 MG tablet,delayed release (DR/EC) 81 mg PO DAILY trazodone 100 MG tablet 100 mg PO DAILY losartan 25 MG tablet 25 mg PO DAILY furosemide 20 MG tablet 20 mg PO DAILY Label Comments: omeprazole 20 MG capsule,delayed release(DR/EC) 20 mg PO DAILY calcium carbonate-vitamin D3 1 EACH tablet 1 each PO BID montelukast 10 MG tablet 10 mg PO PM vvdqlmlx-lay-amycd acid-biotin 1 EACH tablet 1 each PO DAILY Referrals Follow up/Referrals: Brittney Cano APRN [Primary Care Provider] - See instructions Activity Restrictions/Add. Instructions Additional Instructions/Restrictions: *Increase fluids. Water not Soda or Tea *Start antibiotic immediately and be sure to take as ordered for the FULL length of time although you should start to see improvement over the next 48 hours *Pyridium as needed Remember this medication will turn your urine . This is normal but it will stain what ever it gets on *You should not use Pyridium for more than 48 hours. If so , follow up with your primary physician to review urine culture and ensure that antibiotic is adequate for infection *Be SURE to follow up anytime for new or worsening symptoms with your family doctor. AND in 48 hours for urine culture results with your family doctor, if you do not have a doctor then you may call back to the [facility] for urine culture results and further treatment. We do recommend that you choose and establish care with a Primary Care Physician. ?AND follow up with them ?in 10-14 days to repeat UA to ensure infection is resolved and blood no longer present *Be sure to let your PCP know that we sent urine cultures from the [facility] so they can follow up to ensure that you area the on the correct antibiotic Call your doctor office and make appointment for 48 hours (2 days from today) ?to follow up and get the results of your urine culture and further treatment Do not fill the medication that is at [facility] Clinical Impressions Clinical Impression: UTI (urinary tract infection) Instructions Patient Instructions: DI for Urinary Tract Infection (UTI), Urinary Tract Infection, Nitrofurantoin Discharge ED Provider: Darcy Frias [facility] [place] HPI General Stated complaint: Possible UTI Mode of Arrival: Ambulatory Source of Information: Patient Limitations: No Limitations Time Seen by Provider: 04/20/22 11:24 Description of Symptoms (Recalled from Triage Doc. by RN): PATIENT C/O BURNING WITH URINATI
[2022-04-20 11:25] LABS: Apearance,Urine Cloudy (Clear); Color,Urine Dark Yellow (Yellow); PH,Urine 5.5 (5.0-8.5)
[2022-04-20 11:26] LABS: Bilirubin,Urine Negative (Negative); Blood, Urine 3+ (Negative); Glucose,Urine (UA) 100 (Negative); Ketones,Urine Negative (Negative); Protein,Urine 1+ (Negative); UTC Leukocyte Esterase,Urine 2+ (Negative); UTC Nitrate,Urine Positive (Negative); Urobilinogen,Urine 1 EU/dl (0.2)
== END 2022-04-20 11:50 | disposition home or self-care (01) ==
PROVIDERS: Emergency Provider Nurse Practitioner; PCP Nurse Practitioner Family
DX: N39.0 Urinary tract infection, site not specified (principal); R94.31 Abnormal electrocardiogram [ECG] [EKG]; R07.9 Chest pain, unspecified; R00.2 Palpitations; R42 Dizziness and giddiness; I10 Essential (primary) hypertension; I25.10 Atherosclerotic heart disease of native coronary artery without angina pectoris; I45.10 Unspecified right bundle-branch block; E78.5 Hyperlipidemia, unspecified; G47.00 Insomnia, unspecified; J45.909 Unspecified asthma, uncomplicated; Z79.899 Other long term (current) drug therapy; Z79.82 Long term (current) use of aspirin; Z79.51 Long term (current) use of inhaled steroids; Z88.0 Allergy status to penicillin; Z88.8 Allergy status to other drugs, medicaments and biological substances; Z95.1 Presence of aortocoronary bypass graft; Z91.041 Radiographic dye allergy status; Z87.891 Personal history of nicotine dependence
CPT/HCPCS: 81003; 87086; 87088; 87186

== ENCOUNTER → 2022-09-17 10:34 | Outpatient (CLI) | payer OTHER, MEDICARE, SELFPAY ==
--- NOTE | 2022-09-17 10:37 | MM_ITS ---
PROCEDURE INFORMATION: Exam: MG Bilateral Screening 3D Mammography Exam date and time: 09/17/2022 10:28 AM Age: 62 years old Clinical indication: Screening mammogram TECHNIQUE: Imaging protocol: Bilateral Screening tomosynthesis and 2D mammography including computer-aided detection (CAD) when performed. COMPARISON: 1. MG MAMMOGRAPHY BREAST DIAGNOSTIC TOMOSYNTHESIS RIGHT 10/11/2021 9:44 AM 2. MG MM DIG MAMM DX UNILAT RT CAD 02/19/2021 9:02 AM FINDINGS: MAMMOGRAPHY: Breast composition: There are scattered areas of fibroglandular density. Mass: None. Architectural distortion: No new or suspicious architectural distortion. Calcifications: No new or suspicious calcifications are present Asymmetric density: No new or suspicious asymmetric density is present Skin thickening: None. Axillary adenopathy: None. IMPRESSION: No mammographic evidence of malignancy. Recommend annual screening mammography unless otherwise clinically indicated. ASSESSMENT: BI-RADS category 1: Negative
== END ==
PROVIDERS: PCP Nurse Practitioner Family; Visit Provider Nurse Practitioner Family
DX: Z12.31 Encounter for screening mammogram for malignant neoplasm of breast (principal)
CPT/HCPCS: 77063; 77067

== ENCOUNTER → 2022-10-15 09:40 | Outpatient (CLI) | payer OTHER, MEDICARE, SELFPAY | PROVIDERS: PCP Nurse Practitioner Family; Visit Provider Physician Assistant | DX: R00.2 Palpitations (principal) | CPT/HCPCS: 93225 ==

== ENCOUNTER → 2022-11-10 11:36 | Outpatient (CLI) | payer OTHER, MEDICARE, SELFPAY ==
--- NOTE | 2022-11-10 | CA_ITS ---
APPROVED REPORT Exam: Pharmacologic Technologist: Trinity Rubio, Ht: 5 ft 9 in Wt: 227 lbs BSA: 2.18 m2 HR: 59 bpm BP: 161/80 mmHg Medical History Medical History: HTN, Hyperlipidemia Medications: Lorazepam,,,,, Omeprazole,,,,, Levothyroxine,,,,, Aspirin,,,,, Trazadone,,,,, Losartan,,,,, Atorvastatin,,,,, Metoprolol Succinate,,,,, Pristiq,,,,, SyMBICORT,,,,, Albuterol,,,,, Montelukast,,,,, Stress Test Details Test: LEXISCAN HR Resting HR: 61 bpm Max Heart Rate (APMHR): 158.024312 bpm Max HR Achieved: 94 bpm Target HR (85% APMHR): 134.597990 bpm % of APMHR: 59.49 Recovery HR: 79 bpm BP Resting BP: 161/80 mmHg Max BP: 161/80 mmHg Recovery BP: 159.0/75.0 mmHg ECG Clinical Exercise duration: 04:06 min Highest Stage Achieved: Stress ECG Conclusion During lexiscan pt experinced mild SOA and chest pressure. Occasional PVC noted. <1mm ST depression. Non diagnostic target HR not achieved, no ischemic changes. Test Summary REST . . . . . . . Sitting REST 02:17 . . 61 . 161/ 80 . . Stage 1 01:00 . . 79 . . . . Stage 2 01:00 . . 92 . 143/ 77 . . Stage 3 01:00 . . 87 . 153/ 77 . . Stage 4 01:00 . . 85 . 147/ 77 . . Stage 4 01:06 . . 84 . 147/ 77 . Stop exercise at 04:06 RECOVERY 01:00 . . 84 . . . . RECOVERY 02:00 . . 70 . 159/ 75 . . RECOVERY 02:52 . . 81 . 161/ 74 . . Electronically signed by : Ryder Ramos MD 11/11/2022 09:52:00
--- NOTE | 2022-11-10 11:36 | NM_ITS ---
APPROVED REPORT Exam: Nuclear Stress Test Indication: CAD, H/O RI, CABG, HTN, HYPERLIPIDEMIA, FM HX., SOB, PALPITATIONS Patient Location: Outpatient Stress Tech: Trinity Rubio MT Tech:Phyllis AndreWEI butler RT (R)(N)(M) Ht: 5 ft 9 in Wt: 230 lbs HR: 59 bpm BP: 161/80 mmHg BSA: 2.19 m2 TID: 1.09 BMI: 33.9 History: CAD, H/O RI, CABG, HTN, HYPERLIPIDEMIA, FM HX., SOB, PALPITATIONS Procedure: Patient received 0.4 mg of intravenous Lexiscan, resting heart rate 59 bpm, resting blood pressure 161/80 mmHg, with AdenosineLexiscan maximum heart rate achieved was 92 bpm which is % of the maximum predicted heart rate and blood pressure was 193/77 mmHg. PT DID C/O C.P. WITH LEXISCAN Cardiac Stress and Resting SPECT Images: Cardiac Stress and Resting SPECT images were obtained using technetium 99m Myoview 31.9 mCi stress and 10.46 mCi at rest. Stress images reveal decreased myocardial activity in the anterior wall on rest images reveal slightly decreased activity anterior wall yet improved over stress images. Gated images calculated ejection fraction of 55% with normal wall motion Conclusion: Previous nontransmural myocardial infarction of the anterior wall with significant and partial reversible ischemia accompanied by normal ejection fraction and normal wall motion Electronically signed by : Ryder Ramos MD 11/11/2022 13:09:28
--- NOTE | 2022-11-10 12:05 | CA_ITS ---
FINAL REPORT CLINICAL HISTORY: DIZZINESS FINDINGS: RIGHT CAROTID: CCA PSV -116 cm/sec ICA PSV 83 cm/sec ICA/CCA PSV ratio 0.72-1.21 Comments: Mild plaque disease is noted. LEFTCAROTID: CCA PSV 104 cm/sec ICA PSV 120 cm/sec ICA/CCA PSV ratio 1.24-2.50 . Comments: Mild plaque disease is noted. Antegrade flow is seen within the vertebral arteries. IMPRESSION: Less than 50% ICA stenosis. Reviewed, Interpreted and Dictated by Rupert Negron MD Transcribed by Bertha Mckay Authenticated and [facility]
== END ==
PROVIDERS: PCP Nurse Practitioner Family; Visit Provider Physician Assistant
DX: R42 Dizziness and giddiness (principal); R00.2 Palpitations; I25.810 Atherosclerosis of coronary artery bypass graft(s) without angina pectoris; I10 Essential (primary) hypertension; E78.2 Mixed hyperlipidemia; R94.31 Abnormal electrocardiogram [ECG] [EKG]; S22.23XK Sternal manubrial dissociation, subsequent encounter for fracture with nonunion; Z95.1 Presence of aortocoronary bypass graft
CPT/HCPCS: 78452; 93017; 93306; 93880; A9502; J2785

== ENCOUNTER 2022-11-20 11:09 | Day surgery (SDC) | payer OTHER, MEDICARE, SELFPAY ==
[2022-11-20] VITALS (10 sets, daily range): BP systolic 137–180; BP diastolic 80–96; PULSE 64–83; RESP 16–18; O2SAT 95–100; BMI 33.5
--- NOTE | 2022-11-20 07:18 | IR_ITS ---
APPROVED REPORT Patient Location: Outpatient Animal Herder: WEI Schulz RT (R) PROCEDURES Left heart catheterization Left ventriculogram Selective coronary angiogram Selective engagement of the left internal mammary artery Bilateral selective renal angiography INDICATION Coronary artery disease, History of coronary bypass surgery, Angina pectoris, Hypertension suspect renal artery stenosis based on probably vascular disease Informed consent was obtained prior to the procedure. COMPLICATIONS None Estimated Blood Loss: Less than 10 mls TECHNIQUE One percent lidocaine used to anesthetize the right groin. The right femoral artery was accessed via the Seldinger technique and a 5 [place] sheath was placed in the right femoral artery. A JL 4, JR4 catheter were used to perform left heart catheterization, left ventriculogram selective coronary angiography as well as selective engagement of the 2 vein grafts and the left internal mammary artery. At the end of the procedure the apparatus was removed the groin was reprepped closure change sheath was removed good hemostasis was achieved using Perclose device patient was transferred to the postop putting in stable condition ANGIOGRAPHIC RESULTS The left main artery Normal The left anterior descending artery Has proximal 20 to 30% stenosis with a mid vessel 70% stenosis with competitive flow identified from the left internal mammary graft. First diagonal artery is large and has competitive flow from the vein graft. The circumflex artery Vestigial and patent The right coronary artery Is dominant and has a long proximal and mid vessel 60 to 70% stenosis with a distal 70% stenosis. The posterior descending artery has a proximal 60 to 70% stenosis The OLEA ventriculogram reveals Normal 65% The left ventricular end-diastolic pressure 10 mmHg FUENTES to LAD patent Saphenous to first diagonal artery is patent and then skips to a small first obtuse marginal artery with both limbs being patent Saphenous vein graft to the distal marginal branch off the right coronary artery is patent Right renal artery singular normal Left renal artery singular normal IMPRESSION Adequate four-vessel bypass grafting revascularization as described above Normal ejection fraction Normal left ventricular end-diastolic pressure Normal renal arteries PLAN 1. Angina pectoris likely stemming from hypertension 2. Better treat hypertension and aggressive risk factor modification Electronically signed by : Ryder Ramos MD 11/20/2022 12:29:42
[2022-11-20 11:54] LABS: Basophils % 0.3 % (0.1-2.0); Eosinophils # 0.1 K/mm3 (0.0-0.4); Eosinophils % 0.7 % (0.1-12.0); Hematocrit 39.9 % (37.0-47.0); Hemoglobin 12.8 g/dL (12.2-16.2); Lymphocytes # 2.7 K/mm3 (0.7-4.5); Lymphocytes % 24.9 % (10-50); Mean Corpuscular Hemoglobin 25.6 pg (27.0-31.2); Mean Platelet Volume 7.5 fl (7.4-10.4); Monocytes # 0.7 K/mm3 (0.1-1.0); Monocytes % 6.5 % (1.7-9.3); Neutrophils # 7.3 K/mm3 (1.8-7.8); Neutrophils % 67.5 % (37.0-80.0); Platelet Count 345 K/mm3 (142-424); Red Blood Count 4.99 M/mm3 (4.20-5.40); Red Cell Distribution Width 16.8 % (11.5-17.5); White Blood Count 10.8 K/mm3 (4.8-10.8)
[2022-11-20 11:55] LABS: Anion Gap 12.5 mEq/L (5-15); Blood Urea Nitrogen 13 mg/dl (7-17); Calcium 8.7 mg/dl (8.4-10.2); Carbon Dioxide 34 mmol/L (22.0-30.0); Chloride 96 mmol/L (98-107); Creatinine Clearance Estimated 95 mL/min (50-200); Estimated Glomerular Filt Rate 85 ml/min (>60); GFR (African American) 103 ML/MIN (>60); Glucose 93 mg/dl (74-100); Potassium 4.5 mmoL/L (3.5-5.1); Sodium 138 mmol/L (136-145)
--- NOTE | 2022-11-20 12:25 | SUR.PHASEII ---
Dr. Ramos went out and spoke with pt's family.
== END 2022-11-20 15:22 | disposition home or self-care (01) ==
PROVIDERS: PCP Nurse Practitioner Family; Visit Provider Internal Medicine
DX: I25.110 Atherosclerotic heart disease of native coronary artery with unstable angina pectoris (principal); I25.810 Atherosclerosis of coronary artery bypass graft(s) without angina pectoris; R94.39 Abnormal result of other cardiovascular function study; Z79.899 Other long term (current) drug therapy; Z95.1 Presence of aortocoronary bypass graft; Z79.01 Long term (current) use of anticoagulants; I70.1 Atherosclerosis of renal artery
CPT/HCPCS: 36252; 80048; 85025; 93459; 99152; C1725; C1760; C1769; C1894; Q9967

== ENCOUNTER 2023-02-15 08:50 | Emergency (ER) | payer OTHER, MEDICARE, SELFPAY ==
[2023-02-15 09:00] VITALS: BP 150/72; PULSE 66; RESP 20; TEMP 36.6; O2SAT 97; BMI 34.0
--- NOTE | 2023-02-15 09:01 | EXP.UTC ---
Discharge Plan Disposition Patient Disposition: Home, Self-Care Condition: Good Prescriptions Prescriptions: New phenazopyridine [Pyridium] 200 mg tablet 200 mg PO Q8H 2 Days Qty: 6 0RF ondansetron 4 mg Tablet,Disintegrating 4 mg PO Q8H PRN (Reason: Nausea) Qty: 12 0RF nitrofurantoin monohyd/m-cryst [Macrobid] 100 mg Capsule 100 mg PO BID Qty: 10 0RF Rx Instructions: must administer with a meal/food No Action budesonide-formoterol 160-4.5 mcg/actuation HFA aerosol inhaler 1 puff INHALATION DAILY 30 Days azelastine 137 mcg (0.1 %) aerosol,spray 137 mcg INTRANASAL DAILY 30 Days colestipol 1 gram tablet 1 g PO DAILY levothyroxine 125 mcg tablet 125 mcg PO DAILY desvenlafaxine succinate [Pristiq] 100 mg tablet extended release 24 hr 100 mg PO DAILY Qty: 90 1RF trazodone 100 mg tablet 100 mg PO HS Qty: 90 1RF albuterol sulfate 90 mcg/actuation HFA aerosol inhaler 1 puff INHALATION DAILY levocetirizine 5 mg tablet 5 mg PO DAILY lorazepam 0.5 mg tablet 0.5 mg PO BID PRN (Reason: Anxiety) 30 Days Qty: 60 0RF atorvastatin 80 mg tablet 80 mg PO DAILY Qty: 90 3RF metoprolol succinate 200 mg tablet extended release 24 hr 200 mg PO DAILY Qty: 90 1RF aspirin 81 MG tablet,delayed release (DR/EC) 81 mg PO DAILY losartan 25 MG tablet 25 mg PO DAILY furosemide 20 MG tablet 20 mg PO DAILY Patient Comments: omeprazole 20 MG capsule,delayed release(DR/EC) 20 mg PO DAILY calcium carbonate-vitamin D3 1 EACH tablet 1 each PO BID montelukast 10 MG tablet 10 mg PO PM ndmjzqkb-nle-ktusl acid-biotin 1 EACH tablet 1 each PO DAILY nitroglycerin 0.4 mg tablet, sublingual See Rx Instructions .ROUTE .COMPLEX Rx Instructions: ONE TABLET UNDER TONGUE NEEDED FOR CHEST PAIN EVERY 5 MINUTES;DO NOT EXCEED 2 DOSES PER EPISODE Referrals Follow up/Referrals: Brittney Cano APRN [Primary Care Provider] - See instructions Activity Restrictions/Add. Instructions Additional Instructions/Restrictions: Drink plenty of fluids. Take tylenol or ibuprofen for pain or fever. Take the medications as directed. Follow up with your regular doctor. GO TO THE ER FOR ANY WORSENING SYMPTOMS The pyridium will make your urine turn orange, this is an expected side effect. It will stain your clothes if it comes into contact with them. We will culture the urine. That will tell what bacteria is causing your infection and which antibiotics will treat it best. Sometimes the first antibiotic we prescribe turns out to not work against different bacteria. So, make sure you follow up within 3 days if you are not getting better. Clinical Impressions Clinical Impression: UTI (urinary tract infection) Instructions Patient Instructions: Urine Culture, DI for Urinary Tract Infection (UTI), Phenazopyridine, Nitrofurantoin Discharge ED Provider: Ralph Fisher [facility] [place] HPI General Stated complaint: frequency,burniing when urinating Time Seen by Provider: 02/15/23 09:01 History of Present Illness Provider Complaint: she states that for the past 2 days she has had low back pain, dysuria, nausea and malaise. Related Data Home Medications Medication Instructions Recorded Confirmed aspirin 81 mg tablet,delayed 81 mg PO DAILY Blood thinner 09/15/17 01/20/23 release calcium carbonate 600 mg-vitamin 1 each PO BID Heart disease 09/15/17 01/20/23 D3 20 mcg (800 unit) tablet furosemide 20 mg tablet 20 mg PO DAILY Fluid 09/15/17 01/20/23 losartan 25 mg tablet 25 mg PO DAILY Heart disease 09/15/17 01/20/23 omeprazole 20 mg capsule,delayed 20 mg PO DAILY GERD 09/15/17 01/20/23 release montelukast 10 mg tablet 10 mg PO PM allergioes 12/25/17 01/20/23 multivitamin with minerals-folic 1 each PO DAILY Supplement 12/25/17 01/20/23 acid 66.7 mcg-biotin 1,000 mcg tablet azelastine 137 mcg (0.1 %)
[2023-02-15 09:14] VITALS: BP 150/72; PULSE 66; RESP 20; TEMP 36.6; O2SAT 97
[2023-02-15 09:17] LABS: Microscopic, Urine URINE MICROSCOPIC (MICROSCOPIC)
[2023-02-15 09:22] LABS: Appearance,Urine CLEAR (Clear); Blood, Urine Negative (Negative); Color,Urine YELLOW (Yellow); Glucose,Urine (UA) Negative (Negative); Ketones,Urine Negative (Negative); Leukocyte Esterase,Urine 2+ (Negative); Nitrate,Urine POSITIVE (Negative); Protein,Urine 1+ (Negative)
[2023-02-15 09:26] LABS: Bilirubin,Urine 1+ (Negative)
[2023-02-15 09:34] LABS: Bacteria,Urine 1+ /lpf
== END 2023-02-15 09:20 | disposition home or self-care (01) ==
PROVIDERS: Emergency Provider Nurse Practitioner Family; PCP Nurse Practitioner Family
DX: N39.0 Urinary tract infection, site not specified (principal); M54.59 Other low back pain; R11.0 Nausea; I11.9 Hypertensive heart disease without heart failure; I25.10 Atherosclerotic heart disease of native coronary artery without angina pectoris; E78.5 Hyperlipidemia, unspecified; F33.9 Major depressive disorder, recurrent, unspecified; G47.00 Insomnia, unspecified; J45.909 Unspecified asthma, uncomplicated; Z87.891 Personal history of nicotine dependence
CPT/HCPCS: 81001; 87086; 99212; 99214; G0463

== ENCOUNTER → 2023-03-13 15:41 | Outpatient (CLI) | payer OTHER, MEDICARE, SELFPAY | PROVIDERS: PCP Nurse Practitioner Family; Visit Provider Nurse Practitioner Family | DX: N39.0 Urinary tract infection, site not specified (principal) | CPT/HCPCS: 87086 ==

== ENCOUNTER 2023-04-19 09:39 | Emergency (ER) | payer OTHER, MEDICARE, SELFPAY ==
--- OUTSIDE RECORDS SUMMARY | 2023-04-19 09:43 | XMS_ITS | Clinical Summary ---
Author Name Unknown Address [address] [place] [address] Phone Organization [facility] Address [address] [place] [address] Phone Care Team Providers Care 4Th Grade Teacher Name Role Phone Brittney Cano APRN Unavailable Ruby ruben Ware MD, Cristian Villeda Unavailable [phone] Reason for Visit and Chief Complaint The Chief Complaint is: Low back pain Problems Includes: Problems addressed during this encounter and other active Problems Current Visit Onset Date Resolved Date Provider Carmelita bhatia Status Lower Back Pain 02/02/2023 Sergei Weinstein PA-C A ctive Plan of Treatment Patient was seen by myself Sergei Weinstein PA-C. Patient will follow up 6 weeks recommend starting with some formal physical therapy if that does not help we will consider an MRI. - Last Documented On 02/02/2023 2:54PM ; [facility], [facility] Pending Tests Order Diagnosis Results Due Ordering P neto Therapy - Physical Therapy Lumbar Overweight 02/02/23 Sergei Weinstein PA-C Instructions to patient Lose weight Last Documented On 1:47PM ; [facility], [facility] Assessments Includes: Assessments from this encounter Findings - Overweight - Last Documented On 02/02/2023 2:54PM ; [facility], [facility] Lumbar DDD. - Last Documented On 02/02/2023 2:54PM ; [facility] Instructions Includes:
--- OUTSIDE RECORDS SUMMARY | 2023-04-19 09:43 | XMS_ITS ---
Author Name Unknown Address [address] [place] [address] Phone Organization [facility] , [facility] Address [address] [place] [address] Phone Care Team Providers Care Performance Improvement Analyst Name Role Phone Brittney Cano APRN Unavailable Ruby ruben Ware MD, Cristian Villeda Unavailable [phone] Problems Includes: Active, inactive, and resolved Problems All Visits Onset Date Resolved Date Provider Condition S tatus Lower Back Pain 02/02/2023 Sergei Weinstein PA-C A ctive Plan of Treatment Instructions to patient Lose weight Last Documented On 3 1:47PM ; [facility] Assessments Includes: Assessments for all patient encounters Findings Encounter Date Overweight Physician Specified with Sergei Weinstein PA-C 02/02/2023 Instructions Includes: Instructions for all patient encounters Instructions to patient Lose weight Last Documented On 3 1:47PM ; [facility] Medical Equipment - Implanted Devices Includes: Current and historical Devices No Medical Equipment Recorded Medications Includes: Current and historical Medications Current Medications (continue as prescribed) Multivitamin Women 50+ Oral Tablet
--- OUTSIDE RECORDS SUMMARY | 2023-04-19 09:43 | XMS_ITS ---
Care Plan - [facility], [facility] Created on: April 19, 2023 Kina Queen : 1960 Sex: Female Author Name Unknown Address [address] [place] [address] Phone Organization [facility] , [facility] Address [address] [place] [address] Phone Care Team Providers Care Pet Resort Concierge Name Role Phone Brittney Cano APRN Unavailable Ruby ruben Ware MD, Cristian Villeda Unavailable [phone]
--- OUTSIDE RECORDS SUMMARY | 2023-04-19 09:44 | XMS_ITS | Patient Health Record ---
Author Name Unknown Organization [facility] Address [address] [place] [address] Care Team Providers Care Poultry Hatchery Man Name Role Phone Jeremy Min Primary Care Provider [phone] Brittney Cano [phone] ALLERGIES Allergen (clinical drug ingredient) Drug/Non Drug Allergy documented on EMR Reaction Allergy Type Onset Date Status ziprasidone Geodon (uncoded) facial twitching Allergy Active Penicillin Unknown Drug Allergy Active RESULTS Component Value Reference Range Notes M-Urine Culture Reviewed date:03/16/2023 08:55:07 AM Interpretation: Performing Lab: Notes/Report: CUU NO GROWTH AFTER 48 HOURS Urinalysis Reviewed date:03/13/2023 05:28:40 PM Interpretation: Performing Lab: Notes/Report: Color/Clarity yellow Leuk small Nitrite neg Urobili 0.2 Protein 30mg pH 7.0 Blood trace-intact Sp. Gr. 1.025 Ketone neg Bili neg Glucose neg
[2023-04-19 09:55] VITALS: BP 129/64; PULSE 70; RESP 18; TEMP 36.8; O2SAT 98; BMI 35.1
[2023-04-19 10:01] LABS: Microscopic, Urine URINE MICROSCOPIC (MICROSCOPIC)
--- NOTE | 2023-04-19 10:02 | EXP.UTC ---
Discharge Plan Disposition Patient Disposition: Home, Self-Care Condition: Good Prescriptions Prescriptions: New nitrofurantoin monohyd/m-cryst [Macrobid] 100 mg capsule 100 mg PO Q12H 7 Days Qty: 14 0RF Rx Instructions: must administer with a meal/food phenazopyridine [Pyridium] 200 mg tablet 200 mg PO Q8H 2 Days Qty: 6 0RF No Action levothyroxine 125 mcg tablet 125 mcg PO DAILY trazodone 100 mg tablet 100 mg PO HS Qty: 90 1RF lorazepam 0.5 mg tablet 0.5 mg PO BID PRN (Reason: Anxiety) 30 Days Qty: 60 0RF atorvastatin 80 mg tablet 80 mg PO DAILY Qty: 90 3RF metoprolol succinate 200 mg tablet extended release 24 hr 200 mg PO DAILY Qty: 90 1RF aspirin 81 MG tablet,delayed release (DR/EC) 81 mg PO DAILY losartan 25 MG tablet 25 mg PO DAILY furosemide 20 MG tablet 20 mg PO DAILY Patient Comments: omeprazole 20 MG capsule,delayed release(DR/EC) 20 mg PO DAILY calcium carbonate-vitamin D3 1 EACH tablet 1 each PO BID montelukast 10 MG tablet 10 mg PO PM oblqzjyo-kgx-vzyoy acid-biotin 1 EACH tablet 1 each PO DAILY colestipol 1 gram tablet 1 g PO DAILY Patient Comments: TAKE 1 TABLET BY MOUTH EVERY DAY budesonide-formoterol 160-4.5 mcg/actuation HFA aerosol inhaler 2 puff INHALATION DAILY Patient Comments: INHALE 2 PUFFS BY MOUTH TWICE DAILY. RINSE MOUTH AFTER USE Vraylar 1.5 mg capsule 1.5 mg PO DAILY Patient Comments: TAKE 1 CAPSULE BY MOUTH EVERY DAY Referrals Follow up/Referrals: Brittney Cano APRN [Primary Care Provider] - See instructions Activity Restrictions/Add. Instructions Additional Instructions/Restrictions: *Increase fluids. Water not Soda or Tea *Start antibiotic immediately and be sure to take as ordered for the FULL length of time although you should start to see improvement over the next 48 hours *Pyridium as needed Remember this medication will turn your urine . This is normal but it will stain what ever it gets on *You should not use Pyridium for more than 48 hours. If so , follow up with your primary physician to review urine culture and ensure that antibiotic is adequate for infection *Be SURE to follow up anytime for new or worsening symptoms with your family doctor. AND in 48 hours for urine culture results with your family doctor, if you do not have a doctor then you may call back to the [facility] for urine culture results and further treatment. We do recommend that you choose and establish care with a Primary Care Physician. ?AND follow up with them ?in 10-14 days to repeat UA to ensure infection is resolved and blood no longer present *Be sure to let your PCP know that we sent urine cultures from the [facility] so they can follow up to ensure that you area the on the correct antibiotic Call your doctor office and make appointment for 48 hours (2 days from today) ?to follow up and get the results of your urine culture and further treatment Clinical Impressions Clinical Impression: UTI (urinary tract infection) Qualifiers: Urinary tract infection type: site unspecified Hematuria presence: with hematuria Qualified Code(s): N39.0 - Urinary tract infection, site not specified; R31.9 - Hematuria, unspecified Instructions Patient Instructions: DI for Urinary Tract Infection (UTI), Urinary Tract Infection Discharge ED Provider: Darcy Frias [facility] [place] HPI General Stated complaint: possible uti Mode of Arrival: Ambulatory Source of Information: Patient Limitations: No Limitations Time Seen by Provider: 04/19/23 10:03 Description of Symptoms (Recalled from Triage Doc. by RN): PATIENT C/O PAIN AND BURNING WITH URINATION THAT STARTED THIS MORNING HEENT Symptoms (Recalled from RN notes): No Resp Symptoms (Recalled from RN notes): No Skin Symptoms (Recalled from RN notes): No MS Symptoms (Recalled from RN notes): No Functional Status (Recalled from RN notes): WNL
[2023-04-19 10:08] VITALS: BP 129/64; PULSE 70; RESP 18; TEMP 36.8; O2SAT 98
[2023-04-19 10:11] LABS: Appearance,Urine CLEAR (Clear); Bilirubin,Urine Negative (Negative); Blood, Urine 3+ (Negative); Color,Urine YELLOW (Yellow); Glucose,Urine (UA) Negative (Negative); Ketones,Urine Negative (Negative); Leukocyte Esterase,Urine 3+ (Negative); Nitrate,Urine Negative (Negative); PH,Urine 6.5 (5.0-8.5); Protein,Urine TRACE (Negative); Urobilinogen,Urine 0.2 EU/dl (0.2)
[2023-04-19 10:23] LABS: Bacteria,Urine 2+ /lpf
== END 2023-04-19 10:36 | disposition home or self-care (01) ==
PROVIDERS: Emergency Provider Nurse Practitioner; PCP Nurse Practitioner Family
DX: N39.0 Urinary tract infection, site not specified (principal); R31.9 Hematuria, unspecified; B96.29 Other Escherichia coli [E. coli] as the cause of diseases classified elsewhere; I25.10 Atherosclerotic heart disease of native coronary artery without angina pectoris; I11.9 Hypertensive heart disease without heart failure; E78.5 Hyperlipidemia, unspecified; J45.909 Unspecified asthma, uncomplicated; F33.9 Major depressive disorder, recurrent, unspecified; G47.00 Insomnia, unspecified; Z87.891 Personal history of nicotine dependence
CPT/HCPCS: 81001; 87086; 99212; 99214; G0463

== ENCOUNTER 2023-04-27 18:17 | Emergency (ER) | payer OTHER, MEDICARE, SELFPAY ==
[2023-04-27 18:30] VITALS: BP 143/76; PULSE 84; RESP 18; TEMP 36.6; O2SAT 96; BMI 35.4
[2023-04-27 18:36] LABS: Apearance,Urine Cloudy (Clear); Blood, Urine 3+ (Negative); Color,Urine Dark Yellow (Yellow); Glucose,Urine (UA) Negative (Negative); Ketones,Urine TRACE (Negative); Protein,Urine 1+ (Negative); Specific Gravity, Urine 1.025 (1.005-1.030)
[2023-04-27 18:37] LABS: Bilirubin,Urine Negative (Negative); UTC Leukocyte Esterase,Urine 3+ (Negative); UTC Nitrate,Urine Negative (Negative); Urobilinogen,Urine 1 EU/dl (0.2)
--- NOTE | 2023-04-27 18:44 | EXP.UTC ---
Discharge Plan Disposition Patient Disposition: Home, Self-Care Condition: Good Prescriptions Prescriptions: New ciprofloxacin HCl [Cipro] 500 mg tablet 500 mg PO BID 10 Days Qty: 20 0RF phenazopyridine [Pyridium] 200 mg tablet 200 mg PO Q8H 2 Days Qty: 6 0RF No Action levothyroxine 125 mcg tablet 125 mcg PO DAILY trazodone 100 mg tablet 100 mg PO HS Qty: 90 1RF lorazepam 0.5 mg tablet 0.5 mg PO BID PRN (Reason: Anxiety) 30 Days Qty: 60 0RF atorvastatin 80 mg tablet 80 mg PO DAILY Qty: 90 3RF metoprolol succinate 200 mg tablet extended release 24 hr 200 mg PO DAILY Qty: 90 1RF aspirin 81 MG tablet,delayed release (DR/EC) 81 mg PO DAILY losartan 25 MG tablet 25 mg PO DAILY furosemide 20 MG tablet 20 mg PO DAILY Patient Comments: omeprazole 20 MG capsule,delayed release(DR/EC) 20 mg PO DAILY calcium carbonate-vitamin D3 1 EACH tablet 1 each PO BID montelukast 10 MG tablet 10 mg PO PM [id number] acid-biotin 1 EACH tablet 1 each PO DAILY Vraylar 1.5 mg capsule 1.5 mg PO DAILY Patient Comments: TAKE 1 CAPSULE BY MOUTH EVERY DAY Referrals Follow up/Referrals: Brittney Cano APRN [Primary Care Provider] - See instructions Activity Restrictions/Add. Instructions Additional Instructions/Restrictions: *Increase fluids. Water not Soda or Tea *Start antibiotic immediately and be sure to take as ordered for the FULL length of time although you should start to see improvement over the next 48 hours *Pyridium as needed Remember this medication will turn your urine . This is normal but it will stain what ever it gets on *You should not use Pyridium for more than 48 hours. If so , follow up with your primary physician to review urine culture and ensure that antibiotic is adequate for infection *Be SURE to follow up anytime for new or worsening symptoms with your family doctor. AND in 48 hours for urine culture results with your family doctor, if you do not have a doctor then you may call back to the [facility] for urine culture results and further treatment. We do recommend that you choose and establish care with a Primary Care Physician. ?AND follow up with them ?in 10-14 days to repeat UA to ensure infection is resolved and blood no longer present *Be sure to let your PCP know that we sent urine cultures from the [facility] so they can follow up to ensure that you area the on the correct antibiotic Call your doctor office and make appointment for 48 hours (2 days from today) ?to follow up and get the results of your urine culture and further treatment Clinical Impressions Clinical Impression: UTI (urinary tract infection) Stand Alone Forms Stand Alone Forms: Work/School Release Instructions Patient Instructions: Urinary Tract Infection, DI for Urinary Tract Infection (UTI), Ciprofloxacin Discharge ED Provider: Darcy Frias [facility] [place] HPI General Stated complaint: possible uti Time Seen by Provider: 04/27/23 18:40 History of Present Illness Provider Complaint: Patient states that she was recently seen and treated for UTI and finished macrobid yesterday States that today UTI symptoms returned States that again she is having burning with urination feeling of urgency and frequency like she has to go continuously States that she came back in to get it checked worried the medication didnt clear the infection Related Data Home Medications Medication Instructions Recorded Confirmed aspirin 81 mg tablet,delayed 81 mg PO DAILY Blood thinner 09/15/17 04/27/23 release calcium carbonate 600 mg-vitamin 1 each PO BID Supplement 09/15/17 04/27/23 D3 20 mcg (800 unit) tablet furosemide 20 mg tablet 20 mg PO DAILY Fluid 09/15/17 04/27/23 losartan 25 mg tablet 25 mg PO DAILY Heart disease 09/15/17 04/27/23 omeprazole 20 mg capsule,delayed 20 mg PO DAILY GERD 09/15/17 04/27/23 release montelukast 10 mg tablet 10 mg
[2023-04-27 19:14] VITALS: BP 143/76; PULSE 84; RESP 19; TEMP 36.6; O2SAT 96
== END 2023-04-27 19:14 | disposition home or self-care (01) ==
PROVIDERS: Emergency Provider Nurse Practitioner; PCP Nurse Practitioner Family
DX: N39.0 Urinary tract infection, site not specified (principal); B96.89 Other specified bacterial agents as the cause of diseases classified elsewhere; I25.10 Atherosclerotic heart disease of native coronary artery without angina pectoris; I11.9 Hypertensive heart disease without heart failure; E78.5 Hyperlipidemia, unspecified; J45.909 Unspecified asthma, uncomplicated; F33.9 Major depressive disorder, recurrent, unspecified; G47.00 Insomnia, unspecified
CPT/HCPCS: 81003; 87086; 99212; 99214; G0463

== ENCOUNTER 2023-05-08 09:21 | Day surgery (SDC) | payer OTHER, MEDICARE, SELFPAY ==
[2023-05-05 13:15] VITALS: BMI 74.9
[2023-05-08 09:38] VITALS: BP 150/50; PULSE 72; RESP 18; TEMP 36.4; O2SAT 97
--- NOTE | 2023-05-08 09:54 | EXP.ANES.CKL ---
[facility] Disclaimer: The information contained in this section may have been updated after the patient was seen, as this information can be updated by other users. Medical History Abnormal cardiovascular stress test Abnormal EKG Asthma Atypical angina CAD (coronary artery disease) Chest pain Dizziness Dyspnea Ex-smoker Hyperlipidemia Hypertension Insomnia Major depressive disorder Palpitations Restrictive lung disease Right bundle branch block Sternal manubrial dissociation with nonunion Typical angina Surgical History History of ankle surgery History of appendectomy History of cardiac catheterization History of cholecystectomy History of hysterectomy History of open heart surgery Hx of CABG Family History Other Cancer Heart attack Hyperlipidemia Hypertension Social History Smoking Status: Former smoker tobacco type: cigarettes second hand exposure: No alcohol intake: never counseling provided: none substance use type: denies use counseling given: No current occupational status: employed Travel in the last 8 weeks: None adopted: No caregiver/support person: No foster care: No household members: spouse housing: house lives independently: Yes marital status: number of children: 3 number of grandchildren: 5 education level: high school service: No correction: No current occupation: disabled current occupational exposures/hazards: No Hx Recent Travel: Yes sexually active: No caffeine: Yes physical activity: none working smoke detector in home: Yes fire extinguisher in home: Yes carbon monox detector in home: No firearms in home: Yes firearms unloaded and locked: Yes do you feel safe at home: Yes victim of physical abuse: No victim of emotional abuse: No victim of sexual abuse: No would you like helpful sources: No [facility] Anesthesia Checklist Patient Identification Patient Identification: Arm Band and Verbal (Name & ) Structural Data Admitted From: Home Planned Operative Procedure/s: EGD/Colonoscopy Consent for Planned Operative Procedure(s) Verified: Yes NPO Status Verified Time NPO: 00:00 Additional verifications Anesthesia Reactions: No Hx Blood Transfusions: No Blood Transfusion Reaction: No Airway Assessment Mallampati Score:: Class IV C-Spine Mobility Assessed: Yes TMJ Mobility Assessed: Yes Dentition: Good Dentition Neurological Assessment Level of Consciousness: Awake Hx Seizures: No Numbness or tingling in extremities: No Anesthesia Plan Anesthesia Risk discussed: Yes Anesthesia Plan: Verified ASA Class: III Anesthesia Type: MAC
--- NOTE | 2023-05-08 09:54 | EXP.GEN.HP ---
HPI HPI HPI: Patient is a 62-year-old female with history of coronary artery disease, angina, right bundle branch block, prior CABG, major depressive disorder, obstructive sleep apnea, hypertension, hyperlipidemia. I had performed several colonoscopies on her in the past. In 2013 she had at least one sessile serrated adenoma. Colonoscopy November 2015 revealed 3 sessile serrated adenomas and 2 tubular adenomas. Colonoscopy 12/29/2017 along with upper endoscopy revealed several hyperplastic polyps and 1 sessile serrated adenoma. Colonoscopy on 04/03/2020 revealed numerous hyperplastic rectal polyps and a couple of tubular adenomas at the hepatic flexure. I advocated follow-up colonoscopy 3 years. She is referred by Cece Cano for possible EGD and colonoscopy. She describes GI issues. She states that she has occasional cramping pain which leads to dry heaves and often vomiting. She also has some occasional diarrhea. It is not necessarily related to eating and is often sporadic. [facility] Disclaimer: The information contained in this section may have been updated after the patient was seen, as this information can be updated by other users. Medical History Abnormal cardiovascular stress test Abnormal EKG Asthma Atypical angina CAD (coronary artery disease) Chest pain Dizziness Dyspnea Ex-smoker Hyperlipidemia Hypertension Insomnia Major depressive disorder Palpitations Restrictive lung disease Right bundle branch block Sternal manubrial dissociation with nonunion Typical angina Surgical History History of ankle surgery History of appendectomy History of cardiac catheterization History of cholecystectomy History of hysterectomy History of open heart surgery Hx of CABG Family History Other Cancer Heart attack Hyperlipidemia Hypertension Social History (Updated 05/08/23 @ 09:46 by Sudha Cano RN) Smoking Status: Former smoker tobacco type: cigarettes second hand exposure: No alcohol intake: never counseling provided: none substance use type: denies use counseling given: No current occupational status: employed Travel in the last 8 weeks: None adopted: No caregiver/support person: No foster care: No household members: spouse housing: house lives independently: Yes marital status: number of children: 3 number of grandchildren: 5 education level: high school service: No custodial: No current occupation: disabled current occupational exposures/hazards: No Hx Recent Travel: Yes sexually active: No caffeine: Yes physical activity: none working smoke detector in home: Yes fire extinguisher in home: Yes carbon monox detector in home: No firearms in home: Yes firearms unloaded and locked: Yes do you feel safe at home: Yes victim of physical abuse: No victim of emotional abuse: No victim of sexual abuse: No would you like helpful sources: No Meds Home Medications and Allergies Home Medications Medication Instructions Recorded Confirmed Type aspirin 81 mg tablet,delayed 81 mg PO DAILY Blood thinner 09/15/17 05/08/23 History release calcium carbonate 600 mg-vitamin 1 each PO BID Supplement 09/15/17 05/08/23 History D3 20 mcg (800 unit) tablet furosemide 20 mg tablet 20 mg PO DAILY Fluid 09/15/17 05/08/23 History losartan 25 mg tablet 25 mg PO DAILY Heart disease 09/15/17 05/08/23 History omeprazole 20 mg capsule,delayed 20 mg PO DAILY GERD 09/15/17 05/08/23 History release montelukast 10 mg tablet 10 mg PO PM allergioes 12/25/17 05/08/23 History multivitamin with minerals-folic 1 each PO DAILY Supplement 12/25/17 05/08/23 History acid 66.7 mcg-biotin 1,000 mcg tablet lorazepam 0.5 mg tablet 0.5 mg PO BID PRN Anxiety 30
[2023-05-08 10:17] VITALS: O2SAT 94
--- NOTE | 2023-05-08 10:56 | HMH.SCOPE ---
Procedure: Date: 05/08/23 Patient Date of :: 1960 Procedure Performed:: Esophagogastroduodenoscopy with biopsies Total colonoscopy with random biopsies and polypectomy using biopsy forceps Indications:: Patient is a 62-year-old female with history of coronary artery disease, angina, right bundle branch block, prior CABG, major depressive disorder, obstructive sleep apnea, hypertension, hyperlipidemia. I had performed several colonoscopies on her in the past. In 2013 she had at least one sessile serrated adenoma. Colonoscopy November 2015 revealed 3 sessile serrated adenomas and 2 tubular adenomas. Colonoscopy 12/29/2017 along with upper endoscopy revealed several hyperplastic polyps and 1 sessile serrated adenoma. Colonoscopy on 04/03/2020 revealed numerous hyperplastic rectal polyps and a couple of tubular adenomas at the hepatic flexure. I advocated follow-up colonoscopy 3 years. She is referred by Cece Cano for possible EGD and colonoscopy. She describes GI issues. She states that she has occasional cramping pain which leads to dry heaves and often vomiting. She also has some occasional diarrhea. It is not necessarily related to eating and is often sporadic. Performing Provider:: Zack Kelley MD Referring Provider:: Cece Cano Sedation:: MAC sedation Procedure:: Patient history was obtained and appropriate physical examination was performed. Patient's medications and allergies were reviewed. Informed consent was obtained after explaining the benefits, alternatives, and risks of the procedure including, but not limited to, bleeding, perforation, missed lesions, and adverse reaction to anesthesia medications. Patient was transported to endoscopy procedure room. Patient was connected to monitoring devices. Throughout the procedure the patient's blood pressure, pulse, and oxygen saturations were monitored continuously. Patient identification and planned procedure were verified by the staff. Patient was positioned in lateral decubitus position. Attention was first turned to upper endoscopy. Olympus endoscope was inserted via the oropharynx. Esophagus was cannulated. Overall the esophagus appeared relatively unremarkable. Gastroesophageal junction was encountered at approximately 37 cm. Stomach was cannulated and insufflated. There was some evidence of bile retained within the gastric lumen potentially related to bile reflux gastritis. There were multiple diffuse polyps consistent with fundic gland polyps. There was some appreciable erosive antral gastritis. Pylorus was traversed. Duodenum appeared relatively unremarkable with only some minor atrophic mucosa. Several biopsies were obtained. Endoscope was withdrawn into the stomach and multiple biopsies were obtained of the likely bile reflux antral erosive gastritis. Biopsies obtained of fundic gland polyp. A couple of distal esophageal biopsies were obtained. Endoscope was withdrawn Next attention was turned to colonoscopy. Digital anorectal exam was performed. Variable stiffness Olympus colonoscope was inserted and advanced under direct visualization to the cecum. Adequacy of the colonic preparation was noted. The colonoscope was unable to be advanced into the terminal ileum despite multiple attempts. The colonoscope was then slowly withdrawn while carefully examining the color, texture, anatomy, and integrity of the mucosoa circumferentially. Within the rectum retroflexion was performed. Colonoscope was then withdrawn. . Colonic preparation was good. There was some sigmoid diverticulosis. Random biopsies were obtained differentiating right and left to evaluate for microscopic colitis. There were some subtle probable hyperplastic appearing polyps of the rectosigmoid region, too numerous to count, couple of biopsies were obtained. . Findings:: Gastroesophageal junction at 37 cm Findings consistent with bile reflux erosive antral gastritis Fundi
[2023-05-08 10:58] VITALS: BP 80/48; PULSE 81; RESP 16; TEMP 36.4; O2SAT 93
[2023-05-08 11:08] VITALS: BP 95/75; PULSE 85; RESP 17; O2SAT 95
[2023-05-08 11:18] VITALS: BP 102/64; PULSE 80; RESP 16; O2SAT 97
[2023-05-08 11:28] VITALS: BP 104/62; PULSE 70; RESP 17; O2SAT 95
== END 2023-05-08 11:30 | disposition home or self-care (01) ==
PROVIDERS: PCP Nurse Practitioner Family; Visit Provider Surgery
PROC: 0DJ08ZZ Inspection of Upper Intestinal Tract, Via Natural or Artificial Opening Endoscopic (ICD-10-PCS; CPT 43235; principal; 2023-05-08 10:30)
DX: K29.50 Unspecified chronic gastritis without bleeding (principal); Z86.010 Personal history of colon polyps; K31.7 Polyp of stomach and duodenum; K63.5 Polyp of colon; K57.30 Diverticulosis of large intestine without perforation or abscess without bleeding
CPT/HCPCS: 43239; 45380; J2704

== ENCOUNTER → 2023-05-19 11:04 | Outpatient (POV) | payer OTHER, MEDICARE, SELFPAY | PROVIDERS: PCP Nurse Practitioner Family; Visit Provider Dermatology | DX: Z00.00 Encounter for general adult medical examination without abnormal findings (principal) ==

== ENCOUNTER 2023-08-18 17:00 | Outpatient (RCR) | payer BC, OTHER, MEDICARE, SELFPAY | END 2023-08-18 18:00 | disposition home or self-care (01) | LOC: PT 17:00 | PROVIDERS: PCP Nurse Practitioner Family; Visit Provider Nurse Practitioner | DX: M76.821 Posterior tibial tendinitis, right leg (principal); M79.671 Pain in right foot; R60.0 Localized edema | CPT/HCPCS: 97035; 97110; 97140; 97163; 97164; 97530 ==

== ENCOUNTER 2023-11-06 09:59 | Outpatient (CLI) | payer BC, MEDICARE, SELFPAY ==
[2023-11-06 10:44] LABS: Basophils # 0.1 K/mm3 (0-0.2); Basophils % 0.8 % (0.1-2.0); Eosinophils # 0.1 K/mm3 (0.0-0.4); Hematocrit 37.2 % (37.0-47.0); Hemoglobin 11.9 g/dL (12.2-16.2); Lymphocytes # 1.8 K/mm3 (0.7-4.5); Lymphocytes % 30.8 % (10-50); Mean Corpuscular HGB Conc 31.8 g/dL (31.8-35.4); Mean Corpuscular Hemoglobin 25.3 pg (27.0-31.2); Mean Corpuscular Volume 79.6 fl (81-99); Mean Platelet Volume 7.6 fl (7.4-10.4); Monocytes # 0.4 K/mm3 (0.1-1.0); Neutrophils # 3.4 K/mm3 (1.8-7.8); Neutrophils % 60.4 % (37.0-80.0); Platelet Count 352 K/mm3 (142-424); Red Blood Count 4.68 M/mm3 (4.20-5.40); Red Cell Distribution Width 15.4 % (11.5-17.5); White Blood Count 5.7 K/mm3 (4.8-10.8)
[2023-11-06 11:01] LABS: Hemoglobin A1C 5.9 % (4.0-6.0)
[2023-11-06 11:16] LABS: Alanine Aminotransferase 25 U/L (12-78); Albumin/Globulin Ratio 1.5 (1.1-1.8); Alkaline Phosphatase 107 U/L (38-126); Anion Gap 9.3 mEq/L (5-15); Aspartate Amino Transferase 28 U/L (14-36); Bilirubin,Total 0.5 mg/dl (0.2-1.3); Blood Urea Nitrogen 12 mg/dl (7-17); Calcium 9.4 mg/dl (8.4-10.2); Carbon Dioxide 28 mmol/L (22.0-30.0); Chloride 107 mmol/L (98-107); Chol/HDL Ratio 3.5 (1-3.5); Cholesterol 117 mg/dl (140-200); Estimated Glomerular Filt Rate 72 ml/min (>60); GFR (African American) 88 ML/MIN (>60); Globulin 2.7 g/dL (1.3-3.2); Glucose 101 mg/dl (74-100); HDL Cholesterol 33 mg/dl (40-60); Potassium 4.3 mmoL/L (3.5-5.1); Sodium 140 mmol/L (136-145); Total Protein,Serum 6.7 g/dl (6.3-8.2); Triglycerides 256 mg/dl (30-150); VLDL Cholesterol 51 mg/dL (0-40)
[2023-11-06 11:27] LABS: Direct LDL Cholesterol 52.31 mg/dL (100-129)
[2023-11-06 11:46] LABS: Thyroid Stimulating Hormone 0.43 uIU/mL (0.465-4.68)
== END 2023-11-06 23:59 | disposition home or self-care (01) ==
LOC: LAB 10:01
PROVIDERS: PCP Nurse Practitioner Family; Visit Provider Emergency Medicine
DX: I25.810 Atherosclerosis of coronary artery bypass graft(s) without angina pectoris (principal); R73.03 Prediabetes; Z87.891 Personal history of nicotine dependence
CPT/HCPCS: 36415; 80053; 80061; 83036; 84439; 84443; 85025

== ENCOUNTER 2024-01-29 11:43 | Outpatient (CLI) | payer BC, MEDICARE, SELFPAY ==
[2024-01-29 13:24] LABS: Ferritin 44.2 ng/ml (11.1-264)
== END 2024-01-29 23:59 | disposition home or self-care (01) ==
LOC: LAB 11:44
PROVIDERS: PCP Nurse Practitioner Family; Visit Provider Specialist
DX: E83.10 Disorder of iron metabolism, unspecified (principal)
CPT/HCPCS: 36415; 82728

== ENCOUNTER 2024-03-03 09:51 | Outpatient (CLI) | payer BC, MEDICARE, SELFPAY ==
--- NOTE | 2024-03-03 09:54 | MM_ITS ---
PROCEDURE INFORMATION: Exam: MG Bilateral Screening 3D Mammography Exam date and time: 03/03/2024 10:06 AM Age: 63 years old Clinical indication: Screening examination TECHNIQUE: Imaging protocol: Bilateral Screening tomosynthesis and 2D mammography including computer-aided detection (CAD) when performed. COMPARISON: 1. MG MM DIG SCREENING MAMM BI W/CAD 09/17/2022 10:28 AM 2. MG MAMMOGRAPHY BREAST DIAGNOSTIC TOMOSYNTHESIS RIGHT 10/11/2021 9:44 AM FINDINGS: MAMMOGRAPHY: Breast composition: There are scattered areas of fibroglandular density. Mass: No suspicious masses. Architectural distortion: None. Calcifications: No suspicious calcifications. Asymmetric density: None. Skin thickening: None. Axillary adenopathy: None. IMPRESSION: No mammographic evidence of malignancy. Annual screening is recommended unless otherwise clinically indicated. ASSESSMENT: BI-RADS Category 1: Negative
== END 2024-03-03 23:59 | disposition home or self-care (01) ==
LOC: RAD 09:51
PROVIDERS: PCP Nurse Practitioner Family; Visit Provider Nurse Practitioner Family
DX: Z12.31 Encounter for screening mammogram for malignant neoplasm of breast (principal)
CPT/HCPCS: 77063; 77067

== ENCOUNTER → 2024-04-05 20:17 | Outpatient (CLI) | payer BC, MEDICARE, SELFPAY | LOC: SL 20:19 | PROVIDERS: PCP Nurse Practitioner Family; Visit Provider Specialist | DX: G47.33 Obstructive sleep apnea (adult) (pediatric) (principal) | CPT/HCPCS: 95810 ==

== ENCOUNTER 2024-04-13 12:46 | Outpatient (CLI) | payer BC, MEDICARE, SELFPAY ==
--- NOTE | 2024-04-13 12:51 | CT_ITS ---
FINAL REPORT TECHNIQUE: Thin section axial images were obtained from the lung apices to the upper abdomen by computed tomography. Reformatted images were obtained and reviewed. This study was performed with techniques to keep radiation doses al low as reasonably achievable (ALARA). Individualized dose reduction techniques using automated exposure control or adjustment of mA and/or kV according to the patient's size were employed. CLINICAL HISTORY: SCREENING former smoker, quit 15 years ago. smoked 1 ppd x 30 years COMPARISON: Chest CT dated 12/25/2020 FINDINGS: CHEST CT LOW DOSE 63-year-old female, former smoker who quit 15 years ago, 24-fxez-wzwy history. CTDI vol (mGy): 2.9 DLP (mGy-cm): 96.38 The patient has undergone a prior midline sternotomy. There is no axillary adenopathy. There is no mediastinal or hilar mass or adenopathy. The heart is normal in size. There is no pericardial or pleural effusion. Lung window images demonstrate a 5 mm noncalcified nodule in the superior segment of the left lower lobe best seen on image #22 of series 3, stable when compared to the prior exam. A calcified granuloma is present in the right upper lobe.. Limited images of the upper abdomen reveals evidence of a prior cholecystectomy. IMPRESSION: Lung-RADS category 1. Recommend 12 month follow up low dose chest CT. Reviewed, Interpreted and Dictated by Zack Kay III, MD Transcribed by Ne Vaughn Authenticated and [facility]
== END 2024-04-13 23:59 | disposition home or self-care (01) ==
LOC: RAD 12:48
PROVIDERS: PCP Nurse Practitioner Family; Visit Provider Internal Medicine Adolescent Medicine
DX: Z87.891 Personal history of nicotine dependence (principal)
CPT/HCPCS: 71271

== ENCOUNTER 2024-05-04 13:17 | Outpatient (CLI) | payer BC, MEDICARE, SELFPAY ==
[2024-05-04 14:03] LABS: Basophils % 0.6 % (0.1-2.0); Eosinophils # 0.1 K/mm3 (0.0-0.4); Eosinophils % 1.5 % (0.1-12.0); Hematocrit 35.9 % (37.0-47.0); Lymphocytes % 31.8 % (10-50); Mean Corpuscular HGB Conc 33.4 g/dL (31.8-35.4); Mean Platelet Volume 7.5 fl (7.4-10.4); Monocytes # 0.5 K/mm3 (0.1-1.0); Monocytes % 8.6 % (1.7-9.3); Neutrophils # 3.6 K/mm3 (1.8-7.8); Neutrophils % 57.5 % (37.0-80.0); Platelet Count 398 K/mm3 (142-424); Red Blood Count 4.44 M/mm3 (4.20-5.40); Red Cell Distribution Width 15.6 % (11.5-17.5); White Blood Count 6.3 K/mm3 (4.8-10.8)
[2024-05-04 15:27] LABS: Hemoglobin A1C 5.3 % (4.0-6.0)
[2024-05-04 16:37] LABS: Chloride 104 mmol/L (98-107); Potassium 4.2 mmoL/L (3.5-5.1); Sodium 138 mmol/L (136-145)
[2024-05-04 16:40] LABS: Alanine Aminotransferase 30 U/L (12-78); Albumin/Globulin Ratio 1.5 (1.1-1.8); Alkaline Phosphatase 49 U/L (38-126); Anion Gap 14.2 mEq/L (5-15); Aspartate Amino Transferase 39 U/L (14-36); Bilirubin,Total 0.5 mg/dl (0.2-1.3); Blood Urea Nitrogen 16 mg/dl (7-17); Calcium 9.2 mg/dl (8.4-10.2); Carbon Dioxide 24 mmol/L (22.0-30.0); Cholesterol 122 mg/dl (140-200); Estimated Glomerular Filt Rate 63 ml/min (>60); GFR (African American) 77 ML/MIN (>60); Globulin 2.7 g/dL (1.3-3.2); Glucose 99 mg/dl (74-100); Total Protein,Serum 6.7 g/dl (6.3-8.2); Triglycerides 145 mg/dl (30-150); VLDL Cholesterol 29 mg/dL (0-40)
[2024-05-04 16:41] LABS: Chol/HDL Ratio 4.1 (1-3.5); HDL Cholesterol 30 mg/dl (40-60)
[2024-05-04 16:51] LABS: Direct LDL Cholesterol 66.69 mg/dL (100-129)
== END 2024-05-04 23:59 | disposition home or self-care (01) ==
PROVIDERS: PCP Nurse Practitioner Family; Visit Provider Emergency Medicine
DX: I25.708 Atherosclerosis of coronary artery bypass graft(s), unspecified, with other forms of angina pectoris (principal); E78.00 Pure hypercholesterolemia, unspecified
CPT/HCPCS: 36415; 80053; 80061; 83036; 85025

== ENCOUNTER 2024-12-22 08:49 | Outpatient (CLI) | payer BC, MEDICARE, SELFPAY ==
--- OUTSIDE RECORDS SUMMARY | 2024-10-08 17:30 | XMS_ITS ---
Author Organization [facility] Address [address] [place] [address] Care Team Providers Care Monotype Mechanic Name Role Phone Eric Minhen Primary Care Provider Brittney Cano Unavailable [phone] Migration, Provider Unavailable Unavailable Allergies Allergen (clinical drug ingredient) Drug/Non Drug Allergy documented on EMR Reaction Allergy Type Onset Date Status ziprasidone Geodon facial twitching Drug Allergy Active Penicillin Unknown Drug Allergy Active [facility] Conversion Encounter Medications Medication SIG (Take, Route, Frequency, Duration) Notes Start Date End Date Status Losartan Potassium 25 MG 1 tab(s) orally once a day for 90 days Active Omeprazole 20 MG 1 cap(s) orally once a day for 90 days Active Vraylar 1.5 MG TAKE 1 CAPSULE BY MOUTH EVERY DAY for 30 Active Lasix 20 MG 1 tab(s) orally every other day for 180 days Active ZyrTEC Allergy 10 MG 1 tab(s) orally onc e a day for 90 days Active Lipitor 80 MG 1 tab(s) orally once a day Active Metoprolol Succinate ER 200 MG 1 tab(s) orally once a day Active LORazepam 0.5 MG 1 tab(s) orally 2 times a day as needed for anxiety for 30 days 08/18/2021 Active Singulair 10 MG 1 tab(s) orally once a day Active Symbicort 80-4.5 MCG/ACT 2 puff(s) inhaled 2 times a day Active traZODone HCl 100 MG 1 tab(s) orally onc e a day (at bedtime) Active ASPIR-LOW 81 MG 1 TAB(S) ORALLY ONCE A DAY *Please review for potential replacement for e-prescription and drug interaction check* Active Desvenlafaxine ER 100 MG 1 tab(s) orally once a day Active CALTRATE 600 WITH D (OBSOLETE) 600 MG-400 INTL UNITS 1 TAB(S) ORALLY 2 TIMES A DAY *Please review for potential replacement for e-prescription and drug interaction check* Active Ibuprofen 200 MG 3 tab(s) orally every 6 hours prn Active Slow Fe ( ELEMENTAL IRON) 45 MG 1 TAB(S) ORALLY ONCE A DAY *Please review and pick correct strength-formulat ion from [employer] options. If intended option is not shown, discontinue and re-order from Quick Search* Active Semaglutide 2 MG/3 ML (0.25 MG OR 0.5 MG DOSE) 0.75ML SUBCUTANEOUSLY ONCE A WEEK *Please review and pick correct strength-formulat ion from [employer] options. If intended option is not shown, discontinue and re-order from Quick Search* Active Levothyroxine Sodium 125 MCG 1 tab(s) orally once a day for 30 day(s) Active Encounters Encounter Location Date Provider Diagnosis [facility] [address] [facility] [address] [place] [address] 10/08/2024 Provider Migration Chronic allergic rhinitis J30.9 Assessments Encounter Date Diagnosis (ICD Code) Assessment Notes Treatment Notes Treatment Clinical Notes Section Notes 10/08/2024 Chronic allergic rhinitis (ICD-10 - J30.9) Plan Of Treatment Medication Medication Name Sig Start Date Stop Date Notes Losartan Potassium 25 MG 1 tab(s) orally once a day for 90 days ZyrTEC Allergy 10 MG 1 tab(s) orally onc e a day for 90 days Levothyroxine Sodium 125 MCG 1 tab(s) or ally once a day for 30 day(s) Progress Notes * Kina QUEEN FDOB: (64 yo F)Acc No.[id number]:10/08/2024 Patient: Kina JONES Provider: Janelle duque Migration :1960 A ge:64 Y S ex:Female Date:10/08/2024 [address] [place], [id number] Pcp:Jeremy Min Subjective: * Chief Complaints: * 1 . [facility]. * Medical History: * Medications: T aking Slow Fe ( ELEMENTAL IRON) 45 MG TABLET, EXTENDED RELEASE 1 TAB(S) ORALLY ONCE A DAY , Notes to Pharmacist: *Please review and pick correct strength- formulation [facility] options. If intended option is not shown, discontinue and re-order from Quick Search*, Taking Semaglutide 2 MG/3 ML (0.25 MG OR 0.5 MG DOSE) SOLUTION 0.75ML SUBCUTANEOUSLY ONCE A WEEK , Notes to Pharmacist: *Please review and pick correct strength-formulation from [facility] options. If intended option is not shown, discontinue and re-order from Quick Search*, Taking Desvenlafaxine ER 100 MG Tablet Extended Release 24 Hour 1 tab(s) orally once a day , Taking traZODone HCl 100 MG Tablet 1 tab(s) orally once a day (at bedtime) , Taking ASPIR-LOW 81 MG ENTERIC COATED TABLET 1 TAB(S) ORALLY ONCE A DAY , Notes to Pharmacist: *Please review for potential replacement for e-prescription and drug interaction check*, Taking CALTRATE 600 WITH D (OBSOLETE) 600 MG-400 INTL UNITS TABLET 1 TAB(S) ORALLY 2 TIMES A DAY , Notes to Pharmacist: *Please review for potential replacement for e-prescription and drug interaction check*, Taking Ibuprofen 200 MG Tablet 3 tab(s) orally every 6 hours prn , Taking Singulair 10 MG Tablet 1 tab(s) orally once a day , Taking Symbicort 80-4.5 MCG/ACT Aerosol 2 puff(s) inhaled 2 times a day , Taking Lipitor 80 MG Tablet 1 tab(s) orally once a day , Taking Metoprolol Succinate ER 200 MG Tablet Extended Release 24 Hour 1 tab(s) orally once a day , Taking LORazepam 0.5 MG Tablet 1 tab(s) orally 2 times a day as needed for anxiety , Taking Vraylar 1.5 MG Capsule TAKE 1 CAPSULE BY MOUTH EVERY DAY , Taking Lasix 20 MG Tablet 1 tab(s) orally every other day , Taking Omeprazole 20 MG Capsule Delayed Release 1 cap(s) orally once a day * Allergies: P enicillin, Geodon: facial twitching. Objective: * Vitals: Assessment: * Assessment: 1. C hronic allergic rhinitis - J30.9 Plan: * Treatment: 2. O thers Start Losartan Potassium Tablet, 25 MG, 1 tab(s), orally, once a day, 90 days, 90 Tablet, Refills 1; S tart Levothyroxine Sodium Tablet, 125 MCG, 1 tab(s), orally, once a day, 30 day(s), 30, Refills 4. * * Electronic signature of Prov ider Migration on 12/22/2024 at 08:52 AM EDT Sign off status: Pending * Provider: Janelle duque Migration Date: 0 10/08/2024 Generated for Montez marc/Gia/Kriss on: 0 12/22/2024 08:52 AM EDT
--- OUTSIDE RECORDS SUMMARY | 2024-10-24 10:45 | XMS_ITS ---
Author Organization [facility] Address [address] [place], [place] [address] Care Team Providers Care Manager Talent Acquisition Name Role Phone Jeremy Min Primary Care Provider Brittney Cano [phone] REASON FOR VISIT Having Falls during the night Encounters Encounter Location Date Provider Diagnosis [facility] [address] [place], [place] [address] 10/24/2024 Jeremy Min Plan Of Treatment No Information Progress Notes * Kina QUEEN FDOB: (64 yo F)Acc No.[id number]:10/24/2024 Progress Notes Patient: Kina JONES Provider: Connie Min MD :1960 A ge:64 Y S ex:Female Date:10/24/2024 Address:[id number] Subjective: * Chief Complaints: * 1 . Having Falls during the night. * Medical History: Objective: * Vitals: Assessment: Plan: * Treatment: * * Electronic signature of Eric Min MD FAAP on 12/22/2024 at 08:52 AM EDT Sign off status: Pending * Provider: Connie Min MD Date: 0 10/24/2024 Generated for Montez marc/Gia/eTransmitting on: 0 12/22/2024 08:52 AM EDT
--- OUTSIDE RECORDS SUMMARY | 2024-11-05 06:29 | XMS_ITS | Continuity of Care Document ---
Author Organization [facility] Phone Care Team Providers Care Communications Program Manager Name Role Phone NICOLLE STEPHENSON Primary Attending NICOLLE STEPHENSON Unavailable SHAWANDA LANTIGUA Primary Care NICOLLE STEPHENSON Admitting ALLERGIES AND ADVERSE REACTIONS ALLERGIES AND ADVERSE REACTIONS Code System Allergy Substance Adverse Reaction Date Reaction (Severity) Comment Status Reported By Updated By DEMETRIO Adverse reaction to substance facial twitching active Physician [id number] on October 30, 2015 8:07:29 PM [facility] 37573 RXNorm LISINOPRIL Adverse reaction to substance cough active Physician [id number] on October 30, 2015 8:07:29 PM [facility] [id number] SNOMED CT PENICILLINS Adverse reaction to substance unknown reaction active Physician [id number] on October 30, 2015 8:07:29 PM [facility] MEDICATIONS HOME MEDICATIONS Status RXNORM [facility] Medication Dose Route Frequency Dates Comments Reported By Updated By Patricia [id number] 32220 83647 8 Albuterol Sulfate HFA Inhalation Aerosol Solution 108 (90 Base) MCG/ACT 2.0 PUF INHALE D Q4HPRN Last Dose: PATIENT [id number] on October 11, 2024 1:29:02 PM [facility] Active 59516 80381 0 ASPIRIN EC 81 MG TBEC 81.0 MG ORAL DAILY Last Dose: PATIENT [id number] on October 11, 2024 1:29:02 PM [facility] Active 494667 55725 50196 0 Atorvastatin Calcium Oral Tablet 80 MG 80.0 ORAL DAILY Last Dose: PATIENT [id number] on October 11, 2024 1:29:02 PM [facility] Active 7495289 22505 63324 0 cariprazine (VRAYLAR) 1.5 MG ORAL DAILY Last Dose: PATIENT [email or web address] on October 11, 2024 1:29:03 PM [facility] Active 973690 34052 37924 2 Fenofibrate Oral Tablet 145 MG 145.0 MG ORAL DAILY Last Dose: PATIENT [id number] on October 11, 2024 1:29:03 PM [facility] Active 827382 77000 27994 1 FUROSEMIDE 20 MG TABS 20.0 MG ORAL Last Dose: takes every other day PATIENT [email or web address] on October 11, 2024 1:29:03 PM [facility] Active 251988 61318 51608 1 ibuprofen (MOTRIN) 600.0 MG ORAL Q6HPRN Last Dose: PATIENT [id number] on October 11, 2024 1:29:03 PM [facility] Active 456608 91241 10470 0 LEVOTHYROXIN E SODIUM 100 MCG TABS 125.0 MCG ORAL DAILY Last Dose: PATIENT [id number] on October 11, 2024 1:29:03 PM [facility] Active 826418 69105 87688 1 LORazepam (ATIVAN) 0.5 MG ORAL BID Last Dose: PATIENT [id number] on October 11, 2024 1:29:03 PM [facility] Active 378146 16304 47050 1 losartan potassium (COZAAR) 50.0 MG ORAL DAILY Last Dose: PATIENT [id number] on October 11, 2024 1:29:03 PM [facility] Active 053047 02316 15117 1 METOPROLOL SUCCINATE 50MG TB24 200.0 MG ORAL DAILY Last Dose: PATIENT [id number] on October 11, 2024 1:29:04 PM [facility] Active 515540 12757 04659 1 potassium chloride ER 10.0 MEQ ORAL DAILY Last Dose: PATIENT [id number] on October 11, 2024 1:29:04 PM [facility] Active FreeT extMe d prilosec OTC 20.0 MG ORAL DAILY Last Dose: PATIENT [id number] on October 11, 2024 1:29:04 PM [facility] Active 679426 02775 40727 1 Pristiq Oral Tablet Extended Release 24 Hour 100 MG 100.0 MG ORAL DAILY Last Dose: PATIENT [id number] on October 11, 2024 1:29:04 PM [facility] Active FreeT extMe d semaglutide- 0.25 MG SUBCUT ANEOUS QWEEK Last Dose: PATIENT [id number] on October 11, 2024 1:29:04 PM [facility] Active 9455226 95929 34399 0 Symbicort Inhalation Aerosol 160-4.5 MCG/ACT 2.0 PUF INHALE D TID Last Dose: [email or web address] on October 11, 2024 1:29:04 PM [facility] Active 480684 33249 38566 1 traZODone 50 mg TABS 100.0 MG ORAL BEDTIME Last Dose: PATIENT [email or web address] on October 11, 2024 1:29:05 PM [facility] Active 7952257 53954 51843 6 ZyrTEC Allergy Oral Tablet 10 MG 10.0 MG ORAL DAILY Last Dose: PATIENT [email or web address] on October 11, 2024 1:29:05 PM [facility] DISCHARGE MEDICATIONS Status RXNORM NDC Medication Dose Route Frequency Dates Comments Physician Updated By No Discharge Medication Info rmation Available INPATIENT MEDICATIONS Status RXNORM NDC Medication Dose Route Frequency Rat e Quantity Dates Comments Physician Updated By No Inpatient Medication Info rmation Available SOCIAL HISTORY SOCIAL HISTORY SNOMED-CT Social History Element Description Effective Dates Offered Cessation Comment UpdatedBy [id number] Smoking Status Unknown If Ever Smoked SOCIAL HISTORY - Gender Sex: Female SOCIAL HISTORY - Status : status i nformation is not available Intention in Next Year: intention information is not available SOCIAL HISTORY - Sexual Behavior Sexual Orientation Gender Identity SNOMED-CT Description SNO MED -CT Description Activity Level No of Partners Partner Type UpdatedBy Information is not available HEALTH CONCERNS Problems Concern Status Health Concern problem infor mation not available. Smoking Status Status Years Used Consumed packs p er day Health Concern smoking histo ry information not available. Family History Concern Status Health Concern family histor y information not available. ENCOUNTERS ENCOUNTER INFORMATION Reason for Visit I20.9 Admission October 04, 2024 7:31:[address] [address] Discharge November 03, 2024 3:59:00 AM [facility] DISCH ARGED TO HOME OR SELF CARE ENCOUNTER DIAGNOSES Notes information is not efren ilable. Code System Diagnosis Onset Date Diagnosis information is not available. 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), UNSPECIFIED, WITH OTHER FORMS OF ANGINA PECTORIS [id number] on November 05, 2024 10:29:24 AM [facility] CARE TEAM Care Communications Program Manager Role NICOLLE STEPHENSON Primary Attending NICOLLE STEPHENSON Referring SHAWANDA LANTIGUA Primary Care NICOLLE STEPHENSON Admitting CARE TEAM CARE carcass trimmer Role on Team Status Start Date End Date Update d By SEEMA DAVIS MD Referring normal October 04, 2024 1:18:15 PM [place] October 04, 2024 4:00:00 AM [place] [id number] on October 04, 2024 1:18:15 PM [facility] SEEMA DAVIS MD Attending normal October 04, 2024 1:18:15 PM [facility] October 04, 2024 4:00:00 AM [facility] [id number] on October 04, 2024 1:18:15 PM [facility] SEEMA DAVIS MD Admitting normal October 04, 2024 1:18:15 PM [facility] October 04, 2024 4:00:00 AM [place] [id number] on October 04, 2024 1:18:15 PM [facility] RHINA MAYBERRY MD PCP normal October 04 7:31:33 AM [facility] October 04, 2024 4:00:00 AM [place] [id number] on October 04, 2024 1:18:15 PM [facility]
--- OUTSIDE RECORDS SUMMARY | 2024-12-05 10:12 | XMS_ITS | Continuity of Care Document ---
Author Organization [facility] Phone Care Team Providers Care Continuous Miner Name Role Phone NICOLLE STEPHENSON Admitting NICOLLE STEPHENSON Unavailable NICOLLE STEPHENSON Primary Attending [phone] SHAWANDA LANTIGUA Primary Care ALLERGIES AND ADVERSE REACTIONS ALLERGIES AND ADVERSE REACTIONS Code System Allergy Substance Adverse Reaction Date Reaction (Severity) Comment Status Reported By Updated By DEMETRIO Adverse reaction to substance facial twitching active Physician [id number] on October 30, 2015 8:07:[place] [address] RXNorm LISINOPRIL Adverse reaction to substance cough active Physician [id number] on October 30, 2015 8:07:29 PM [facility] [id number] SNOMED CT P[place] Adverse reaction to substance unknown reaction active Physician [id number] on October 30, 2015 8:07:29 PM [facility] MEDICATIONS HOME MEDICATIONS Status RXNORM NDC Medication Dose Route Frequency Dates Comments Reported By Updated By Drug Treatment Unknown DISCHARGE MEDICATIONS Status RXNORM NDC Medication Dose Route Frequency Dates Comments Physician Updated By No Discharge Medication Info rmation Available INPATIENT MEDICATIONS Status RXNORM NDC Medication Dose Route Frequency Rat e Quantity Dates Comments Physician Updated By No Inpatient Medication Info rmation Available SOCIAL HISTORY SOCIAL HISTORY SNOMED-CT Social History Element Description Effective Dates Offered Cessation Comment UpdatedBy [id number] Smoking Status Unknown If Ever Smoked SOCIAL [...] ENCOUNTER INFORMATION Reason for Visit I20.9 Admission November 03, 2024 7:31:[address] [address] Discharge December 04, 2024 3:59:00 AM [facility] DISC HARGED TO HOME OR SELF CARE ENCOUNTER DIAGNOSES Notes information is not efren ilable. Code System Diagnosis Onset Date Diagnosis information is not available. 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), UNSPECIFIED, WITH OTHER FORMS OF ANGINA PECTORIS [id number] on December 05, 2024 2:11:48 PM [facility] CARE TEAM Care Continuous Miner Role NICOLLE STEPHENSON Admitting NICOLLE STEPHENSON Referring NICOLLE STEPHENSON Primary Attending SHAWANDA LANTIGUA Primary Care CARE TEAM CARE home organizer Role on Team Status Start Date End Date Update d By SEEMA DAVIS MD Referring normal November 03, 2024 3:06:35 PM [facility] November 03, 2024 4:00:00 AM [place] [id number] on November 03, 2024 3:06:35 PM [facility] SEEMA DAVIS MD Attending normal November 03, 2024 3:06:35 PM [facility] November 03, 2024 4:00:00 AM [place] [id number] on November 03, 2024 3:06:35 PM [facility] SEEMA DAVIS MD Admitting normal November 03, 2024 3:06:35 PM [facility] November 03, 2024 4:00:00 AM [facility] [id number] on November 03, 2024 3:06:35 PM [facility] RHINA MAYBERRY MD PCP normal November 03 7:31:19 AM [facility] November 03, 2024 4:00:00 AM [facility] [id number] on November 03, 2024 3:06:35 PM [facility]
--- OUTSIDE RECORDS SUMMARY | 2024-12-19 05:00 | XMS_ITS ---
Author Organization [facility] Address [address] [place] [address] Care Team Providers Care Elementary Secretary Name Role Phone Jeremy Min Primary Care Provider Brittney Cano [phone] Allergies Allergen (clinical drug ingredient) Drug/Non Drug Allergy documented on EMR Reaction Allergy Type Onset Date Status ziprasidone Geodon facial twitching Drug Allergy Active Penicillin Unknown Drug Allergy Active Results Component Value Reference Range Notes LIPID PANEL, STANDARD (7600) (Not yet reviewed by provider) Interpretation: Performing Lab:JAREN, [employer] [facility]ail-Christopher [id number] [facility]ChristopherJaugSU[address] Jean Lyman Notes/Report: NON-FASTING; NON-FASTING; NON-FASTING; NON-FASTING; NON-FAST FASTING:YES FASTING: YES CHOLESTEROL, TOTAL 133 <200 mg/dL HDL CHOLESTEROL 44 > OR = 50 mg/dL TRIGLYCERIDES 108 <150 mg/dL LDL-CHOLESTEROL 70 Reference range: <100 Desirable range <100 mg/dL for primary prevention; <70 mg/dL for patients with CHD or diabetic patients with > or = 2 CHD risk factors. LDL-C is now calculated using the Abdifatah calculation, which is a validated novel method providing better accuracy than the Friedewald equation in the estimation of LDL-C. Cristino WASHINGTON et al. VIRGILIO. 2013;310(19): 7823-5844 (http://education.Attracta.Ace Metrix/faq/FYA719) CHOL/HDLC RATIO 3.0 <5.0 (calc) NON HDL CHOLESTEROL 89 <130 mg/dL (calc) For patients with diabetes plus 1 major ASCVD risk factor, treating to a non-HDL-C goal of <100 mg/dL (LDL-C of <70 mg/dL) is considered a therapeutic option. COMPREHENSIVE METABOLIC PANE L (78587) (Not yet reviewed by provider) Interpretation: Performing Lab:JAREN [employer] [address] [employer] [facility], [facility] HospitalXtgtVA[address] Jean Lyman Notes/Report: NON-FASTING; NON-FASTING; NON-FASTING; NON-FASTING; NON-FAST FASTING:YES FASTING: YES GLUCOSE 87 65-99 mg/dL Fasting reference interval UREA NITROGEN (BUN) 19 7-25 mg/dL CREATININE 1.01 0.50-1.05 mg/dL EGFR 62 > OR = 60 mL/min/1.73m2 BUN/CREATININE RATIO SEE NOTE: 6-22 (calc) Not Reported: BUN and Creatinine are within reference range. SODIUM 139 135-146 mmol/L POTASSIUM 4.9 3.5-5.3 mmol/L CHLORIDE 104 98-110 mmol/L CARBON DIOXIDE 26 20-32 mmol/L CALCIUM 9.1 8.6-10.4 mg/dL PROTEIN, TOTAL 6.9 6.1-8.1 g/dL ALBUMIN 4.2 3.6-5.1 g/dL GLOBULIN 2.7 1.9-3.7 g/dL (calc) ALBUMIN/GLOBULIN RATIO 1.6 1.0-2.5 (calc) BILIRUBIN, TOTAL 0.4 0.2-1.2 mg/dL ALKALINE PHOSPHATASE 48 37-153 U/L AST 19 10-35 U/L ALT 16 6-29 U/L CBC (INCLUDES DIFF/PLT) (639 9) (Not yet reviewed by provider) Interpretation: Performing Lab:JAREN [employer] [id number] [employer] [facility], [facility] HospitalEsatZV[address] Jean Lyman Notes/Report: NON-FASTING; NON-FASTING; NON-FASTING; NON-FASTING; NON-FAST FASTING:YES FASTING: YES WHITE BLOOD CELL COUNT 5.4 3.8-10.8 Thousand/ uL RED BLOOD CELL COUNT 4.45 3.80-5.10 Million/uL HEMOGLOBIN 12.0 11.7-15.5 g/dL HEMATOCRIT 39.2 35.0-45.0 % MCV 88.1 80.0-100.0 fL MCH 27.0 27.0-33.0 pg MCHC 30.6 32.0-36.0 g/dL For adults, a slight decrease in the calculated MCHC value (in the range of 30 to 32 g/dL) is most likely not clinically significant; however, it should be interpreted with caution in correlation with other red cell parameters and the patient's clinical condition. RDW 13.7 11.0-15.0 % PLATELET COUNT 395 140-400 Thousand/uL MPV 10.6 7.5-12.5 fL ABSOLUTE NEUTROPHILS 2997 6641-5247 cells/uL ABSOLUTE LYMPHOCYTES 3391 674-7591 cells/uL ABSOLUTE MONOCYTES 459 200-950 cells/uL ABSOLUTE EOSINOPHILS 92 15-500 cells/uL ABSOLUTE BASOPHILS 38 0-200 cells/uL NEUTROPHILS 55.5 LYMPHOCYTES 33.6 MONOCYTES 8.5 EOSINOPHILS 1.7 BASOPHILS 0.7 HEMOGLOBIN A1c (496) (Not ye t reviewed by provider) Interpretation: Performing Lab:JAREN, [employer] [address], [employer] [address] RoboticsTmakKN[address] Jean Lyman Notes/Report: NON-FASTING; NON-FASTING; NON-FASTING; NON-FASTING; NON-FAST FASTING:YES FASTING: YES HEMOGLOBIN A1c 5.5 <5.7 % For the purpose of screening for the presence of diabetes: <5.7% Consistent with the absence of diabetes 5.7-6.4% Consistent with increased risk for diabetes (prediabetes) > or =6.5% Consistent with diabetes This assay result is consistent with a decreased risk of diabetes. Currently, no consensus exists regarding use of hemoglobin A1c for diagnosis of diabetes in children. According to [place] Diabetes Association (ADA) guidelines, hemoglobin A1c <7.0% represents optimal control in non- diabetic patients. Different metrics may apply to specific patient populations. Standards of Medical Care in Diabetes(ADA). VITAMIN B12 (927) (Not yet r eviewed by provider) Interpretation: Performing Lab:JAREN, [employer] [address], [place] AcessóriosGthkWK[address] Jean Lyman Notes/Report: NON-FASTING; NON-FASTING; NON-FASTING; NON-FASTING; NON-FAST FASTING:YES FASTING: YES VITAMIN B12 654 756-3750 pg/mL TSH W/REFLEX TO FT4 (94912) (Not yet reviewed by provider) Interpretation: Performing Lab:JAREN, [employer] [address], [facility] HospitalKrpfFX[address] Jean Lyman Notes/Report: NON-FASTING; NON-FASTING; NON-FASTING; NON-FASTING; NON-FAST FASTING:YES FASTING: YES TSH W/REFLEX TO FT4 0.60 0.40-4.50 mIU/L VITAMIN D,25-OH,TOTAL,IA (17 306) (Not yet reviewed by provider) Interpretation: Performing Lab:JAREN, [employer] [address], [facility] HospitalYmqmFH[address] Jean Lyman Notes/Report: NON-FASTING; NON-FASTING; NON-FASTING; NON-FASTING; NON-FAST FASTING:YES FASTING: YES VITAMIN D,25-OH,TOTAL,IA 39 30-100 ng/mL Vitamin D Status 25-OH Vitamin D: Deficiency: <20 ng/mL Insufficiency: 20 - 29 ng/mL Optimal: > or = 30 ng/mL For 25-OH Vitamin D testing on patients on D2-supplementation and patients for whom quantitation of D2 and D3 fractions is required, the QuestAssureD(TM) 25-OH VIT D, (D2,D3), LC/MS/MS is recommended: order code 85732 (patients >2yrs). See Note 1 Note 1 For additional information, please refer to http://education.Primedic/faq/MLG900 (This link is being provided for informational/ educational purposes only.) Reason For Referral Reason ANISH bilat lower extr emities Diagnosis 1 Left foot pain (M79. 672) Referral Organization [facility] LATIA GUEVARA Referring Provider First Name Brittney Referring Provider Last Name Rachael Referring Provider Speciality [facility] ctice Referred Organization [facility] Referred Address [address],[address], Referred Provider Specialty Diagnostic R adiology General Notes Sunni Rogers 2024 10:18:13 AM >approved and sent to [facility] Referral Priority Routine REASON FOR VISIT med ck, low b/p, needs refill on Singulair Medications Medication SIG (Take, Route, Frequency, Duration) Notes Start Date End Date Status Singulair 10 MG 1 tab(s) orally once a day for 90 days Active Lasix 20 MG 1 tab(s) orally every other day for 180 days Active Levothyroxine Sodium 125 MCG 1 tab(s) orally once a day for 90 days Active Omeprazole 20 MG TAKE 1 CAPSULE BY MOUTH DAILY for 90 Active Losartan Potassium 25 MG 1 tab(s) orally once a day for 90 days Active ZyrTEC Allergy 10 MG 1 tab(s) orally once a day for 90 days Active LORazepam 0.5 MG 1 tab(s) orally 2 times a day as needed for anxiety for 30 days 08/18/2021 Active Metoprolol Succinate ER 200 MG 1 tab(s) orally once a day Active Lipitor 80 MG 1 tab(s) orally once a day Active CALTRATE 600 WITH D (OBSOLETE) 600 MG-400 INTL UNITS 1 TAB(S) ORALLY 2 TIMES A DAY *Please review for potential replacement for e-prescription and drug interaction check* Active ASPIR-LOW 81 MG 1 TAB(S) ORALLY ONCE A DAY *Please review for potential replacement for e-prescription and drug interaction check* Active traZODone HCl 100 MG 1 tab(s) orally once a day (at bedtime) Active Desvenlafaxine ER 100 MG 1 tab(s) orally once a day Active Slow Fe ( ELEMENTAL IRON) 45 MG 1 TAB(S) ORALLY ONCE A DAY *Please review and pick correct strength-formulati on from Watsi options. If intended option is not shown, discontinue and re-order from Quick Search* Active Social History Tobacco Use: Social History Observation Description Date Details (start date - stop date) Former Smoker NA - NA Smoking: Question Answer Notes Are you a: former smoker How long has it been since you last smoked? 5-10 years Vital Signs Temperature 97.9 degrees Fahrenheit 12/20/19 25 Heart Rate 78 /min 12/19/2024 Blood pressure systolic 96 mm Hg 12/20/19 25 Blood pressure diastolic 60 mm Hg 025 Height 69 in 12/19/2024 Weight 189.8 lbs 12/19/2024 BMI 28.03 kg/m2 12/19/2024 Encounters Encounter Location Date Provider Diagnosis [facility] [address] [place], [place] [address] 12/19/2024 Brittney Cano Hypothyroidism, unspecified hypothyroidism type E03.9 ; Vitamin D deficiency E55.9 ; Hyperlipidemia, unspecified E78.5 ; B12 deficiency E53.8 ; Prediabetes R73.03 ; Chronic allergic rhinitis J30.9 ; Abnormal foot color R23.8 and Left foot pain M79.672 Assessments Encounter Date Diagnosis (ICD Code) Assessment Notes Treatment Notes Treatment Clinical Notes Section Notes 12/19/2024 Hypothyroidism, unspecified hypothyroidism type (ICD-10 - E03.9) continue oral replacement TSH 0.43, FT4 normal 1.10, no adjustment recommended 12/19/2024 Vitamin D deficiency (ICD-10 - E55.9) continue replacement 12/19/2024 Hyperlipidemia, unspecified (ICD-10 - E78.5) labs done recently, reviewed today, LDL 52 12/19/2024 B12 deficiency (ICD-10 - E53.8) 12/19/2024 Prediabetes (ICD-10 - R73.03) on GLP1I as noted. monitor. recent A1C 5.9% 12/19/2024 Chronic allergic rhinitis (ICD-10 - J30.9) 12/19/2024 Abnormal foot color (ICD-10 - R23.8) 12/19/2024 Left foot pain (ICD-10 - M79.672) Plan Of Treatment Medication Medication Name Sig Start Date Stop Date Notes Singulair 10 MG 1 tab(s) orally once a day for 90 days Treatment Notes Assessment Notes Hypothyroidism, unspecified hypothyroidism type continue oral replacement TSH 0.43, FT4 normal 1.10, no adjustment recommended Vitamin D deficiency continue replacemen t Hyperlipidemia, unspecified labs done re cently, reviewed today, LDL 52 Prediabetes on GLP1I as noted. m onitor. recent A1C 5.9% Pending Test Test Name Order Date Ankle/Brachial Index--Segmental BPs 12/04 LIPID PANEL, STANDARD (7600) 12/19/2024 COMPREHENSIVE METABOLIC PANEL (49277) CBC (INCLUDES DIFF/PLT) (6399) HEMOGLOBIN A1c (496) 12/19/2024 VITAMIN B12 (927) 12/19/2024 TSH W/REFLEX TO FT4 (36306) 12/19/2024 VITAMIN D,25-OH,TOTAL,IA (09589) 025 Referrals Referral Date Details 12/19/2024 12/19/2024, ANISH bila t lower extremities, [address], [place], [address], Next Appt Details Follow Up: 6 Months, Reason: Progress Notes * Kina QUEEN FDOB: 1 (64 yo F)Acc No.[id number]:12/19/2024 Progress Notes Patient: Kina JONES Provider: TO Santana :1960 A ge:64 Y S ex:Female Date:12/19/2024 Address:[address] [place], [place] [address]-[address] Pcp:Jeremy Min Subjective: * Chief Complaints: * 1 . Med ck. 2. Low b/p. 3. needs refill on Singulair. * HPI: g en: Stopped semaglutide because of injection site rash and then tirzepatide caused severe diarrhea Cardiology [facility] Behavioral Health every 3 months. Needs RF of singulair, has been out for quite some time No respiratory symptoms aside from itchy ears and runny nose. * Medical History: A nxiety, Depression, GERD, Hyperlipidemia, Uterine fibroids, Hypothyroidism, degenerative L4-5 disc, Tarlov's cyst, Arthritis lumbosacral spine, CAD s/p 4 vessel CABG 2011, Colonoscopy November 2015 with tubular adenoma - repeat colonoscopy January 2018 with hyperplastic polyp, EGD January 2018 with gastritis, no metaplasia, equivocal mammogram findings December 2019, recommended six-month followup - normal on repeat 06/24, Colonoscopy 2019, Dr Kelley. TA x2. Colonoscopy again 2022, repeat 5 years. * Surgical History: h ysterectomy-partial 1997, cholecystectomy 2002, CABG x4 07/2011, appendectomy 06/2016, colonoscopy/EGD 12/2017, rt ankle surgery 06/2018, sinus lift surgery and 2 implants 08/2022. * Hospitalization/Major Diagno stic Procedure: s urgeries . * Family History: F ather: alive. M other: , AAA, CAD,. P aternal Grand Father: . P aternal Grand Mother: , osteoporosis. M aternal Grand Father: . M aternal Grand Mother: , heart disease. P aternal uncle: alive. P aternal aunt: alive. M aternal uncle: alive. M aternal aunt: alive. S iblings: alive, sister-lupus, mental illnesses, arthritis. C hildren: alive. 1 brother(s) , 1 sister(s) . 1 son(s) , 2 daughter(s) - healthy. . * Social History: S moking: yes A re you a: f ormer smoker, H ow long has it been since you last smoked? 5 -10 years. R ecreational drug use: no. Exercise: no. Home smoke detector use: yes. Caffeine: yes, 1 glass tea. Living Will: No. Alcohol: socially. Sexually active: yes. Travel outside [place]: no. Occupation: disability. * Medications: T aking Slow Fe ( ELEMENTAL IRON) 45 MG TABLET, EXTENDED RELEASE 1 TAB(S) ORALLY ONCE A DAY , Notes to Pharmacist: *Please review and pick correct strength- formulation from Dailysinglean options. If intended option is not shown, [...] for e-prescription and drug interaction check*, Taking Singulair 10 MG Tablet 1 tab(s) orally once a day , Taking Lipitor 80 MG Tablet 1 tab(s) orally once a day , Taking Metoprolol Succinate ER 200 MG Tablet Extended Release 24 Hour 1 tab(s) orally once a day , Taking LORazepam 0.5 MG Tablet 1 tab(s) orally 2 times a day as needed for anxiety , Taking ZyrTEC Allergy 10 MG Tablet 1 tab(s) orally once a day , Taking Losartan Potassium 25 MG Tablet 1 tab(s) orally once a day , Taking Omeprazole 20 MG Capsule Delayed Release TAKE 1 CAPSULE BY MOUTH DAILY , Taking Levothyroxine Sodium 125 MCG Tablet 1 tab(s) orally once a day , Taking Lasix 20 MG Tablet 1 tab(s) orally every other day , Discontinued Semaglutide 2 MG/3 ML (0.25 MG OR 0.5 MG DOSE) SOLUTION 0.75ML SUBCUTANEOUSLY ONCE A WEEK , Notes to Pharmacist: *Please review and pick correct strength-formulation from Watsi options. If intended option is not shown, discontinue and re-order from Quick Search*, Discontinued Ibuprofen 200 MG Tablet 3 tab(s) orally every 6 hours prn , Discontinued Symbicort 80-4.5 MCG/ACT Aerosol 2 puff(s) inhaled 2 times a day , Discontinued Vraylar 1.5 MG Capsule TAKE 1 CAPSULE BY MOUTH EVERY DAY , Medication List reviewed and reconciled with the patient * Allergies: P enicillin, Geodon: facial twitching. Objective: * Vitals: N urse: jl, Pain: 0, Temp: 97.9, RR: 18, HR: 78, BP: 96/60, Ht: 69, Wt: 189.8, BMI:28.03. Assessment: * Assessment: 1. H ypothyroidism, unspecified hypothyroidism type - E03.9 2 . V itamin D deficiency - E55.9 3 . H yperlipidemia, unspecified - E78.5 4 .?B12 deficiency - E53.8 5 . P rediabetes - R73.03 6 . C hronic allergic rhinitis - J30.9 7 . A bnormal foot color - R23.8 ?8. L eft foot pain - M79.672 Plan: * Treatment: Value Reference Range T SH W/REFLEX TO FT4 0.60 0.40-4.50 - mIU/L * Riddhi Skinner 12/20/2024 03:07:31 PM EDT > No answer Riddhi Skinner 12/21/2024 10:22:37 AM EDT > No answer Notes: continue oral replacement TSH 0.43, FT4 normal 1.10, no adjustment recommended??2.?Vitamin D deficiency?LAB: VITAMIN D,25-OH,TOTAL,IA (82844) (Collection Date & Time - 12/19/2024 10:15 AM)* Value Reference Range V ITAMIN D,25-OH,TOTAL,IA 39 30-100 - ng/mL * Riddhi Skinner Cristina 12/20/2024 03:07:31 PM EDT > No answer Brody Riddhi L 12/21/2024 10:22:37 AM EDT > No answer Notes: continue replacement??3.?Hyperlipidemia, unspecified?LAB: LIPID PANEL, STANDARD (7600) (Collection Date & Time - 12/19/2024 10:15 AM)* Value Reference Range T RIGLYCERIDES 108 <150 - mg/dL * C HOLESTEROL, TOTAL 133 <200 - mg/dL * H DL CHOLESTEROL 44 L > OR = 50 - mg/dL * L DL-CHOLESTEROL 70 - mg/dL (calc) * C HOL/HDLC RATIO 3.0 <5.0 - (calc) * N ON HDL CHOLESTEROL 89 <130 - mg/dL (calc) * BrodyJorityler Evans 12/20/2024 03:07:31 PM EDT > No answer BrodyRiddhi L 12/21/2024 10:22:37 AM EDT > No answer ?LAB: HEMOGLOBIN A1c (496) (Collection Date & Time - 12/19/2024 10:15 AM)* Value Reference Range H EMOGLOBIN A1c 5.5 <5.7 - % * Brody Riddhi L 12/20/2024 03:07:31 PM EDT > No answer Riddhi Skinner 12/21/2024 10:22:37 AM EDT > No answer Notes: labs done recently, reviewed today, LDL 52??4.?B12 deficiency?LAB: CBC (INCLUDES DIFF/PLT) (8414) (Collection Date & Time - 12/19/2024 10:15 AM)* Value Reference Range W TRA BLOOD CELL COUNT 5.4 3.8-10.8 - Thousan d/uL * R ED BLOOD CELL COUNT 4.45 3.80-5.10 - Million/ uL * H EMOGLOBIN 12.0 11.7-15.5 - g/dL * H EMATOCRIT 39.2 35.0-45.0 - % * M CV 88.1 80.0-100.0 - fL * M CH 27.0 27.0-33.0 - pg * M CHC 30.6 L 32.0-36.0 - g/dL * R DW 13.7 11.0-15.0 - % * P LATELET COUNT 395 140-400 - Thousand/u L * N EUTROPHILS 55.5 - % * A BSOLUTE NEUTROPHILS 2997 4512-3899 - cells/uL * L YMPHOCYTES 33.6 - % * A BSOLUTE LYMPHOCYTES 3758 335-4691 - cells/uL * M ONOCYTES 8.5 - % * A BSOLUTE MONOCYTES 459 200-950 - cells/uL * E OSINOPHILS 1.7 - % * A BSOLUTE EOSINOPHILS 92 15-500 - cells/uL * B ASOPHILS 0.7 - % * A BSOLUTE BASOPHILS 38 0-200 - cells/uL * M PV 10.6 7.5-12.5 - fL * Riddhi Skinner 12/20/2024 03:07:31 PM EDT > No answer Riddhi Skinner 12/21/2024 10:22:37 AM EDT > No answer ?LAB: VITAMIN B12 (927) (Collection Date & Time - 12/19/2024 10:15 AM)* Value Reference Range V ITAMIN B12 921 709-4474 - pg/mL * Riddhi Skinner 12/20/2024 03:07:31 PM EDT > No answer Riddhi Skinner 12/21/2024 10:22:37 AM EDT > No answer 5.?Prediabetes?LAB: LIPID PANEL, STANDARD (7600) (Collection Date & Time - 12/19/2024 10:15 AM)* Value Reference Range T RIGLYCERIDES 108 <150 - mg/dL * C HOLESTEROL, TOTAL 133 <200 - mg/dL * H DL CHOLESTEROL 44 L > OR = 50 - mg/dL * L DL-CHOLESTEROL 70 - mg/dL (calc) * C HOL/HDLC RATIO 3.0 <5.0 - (calc) * N ON HDL CHOLESTEROL 89 <130 - mg/dL (calc) * Riddhi Skinner 12/20/2024 03:07:31 PM EDT > No answer Riddhi Skinner 12/21/2024 10:22:37 AM EDT > No answer ?LAB: COMPREHENSIVE METABOLIC PANEL (39073) (Collection Date & Time - 12/19/2024 10:15 AM)* Value Reference Range G LUCOSE 87 65-99 - mg/dL * U ADAMS NITROGEN (BUN) 19 7-25 - mg/dL * C REATININE 1.01 0.50-1.05 - mg/dL * B UN/CREATININE RATIO SEE NOTE: 12-25 - (calc) * S ODIUM 139 135-146 - mmol/L * P OTASSIUM 4.9 3.5-5.3 - mmol/L * C HLORIDE 104 98-110 - mmol/L * C ARBON DIOXIDE 26 20-32 - mmol/L * C ALCIUM 9.1 8.6-10.4 - mg/dL * P ROTEIN, TOTAL 6.9 6.1-8.1 - g/dL * A LBUMIN 4.2 3.6-5.1 - g/dL * G LOBULIN 2.7 1.9-3.7 - g/dL (calc ) * A LBUMIN/GLOBULIN RATIO 1.6 1.0-2.5 - (calc) * B ILIRUBIN, TOTAL 0.4 0.2-1.2 - mg/dL * A LKALINE PHOSPHATASE 48 37-153 - U/L * A ST 19 10-35 - U/L * A LT 16 6-29 - U/L * E GFR 62 > OR = 60 - mL/min/1 .73m2 * Riddhi Skinner 12/20/2024 03:07:31 PM EDT > No answer Riddhi Skinner 12/21/2024 10:22:37 AM EDT > No answer ?LAB: HEMOGLOBIN A1c (496) (Collection Date & Time - 12/19/2024 10:15 AM)* Value Reference Range H EMOGLOBIN A1c 5.5 <5.7 - % * Riddhi Skinner 12/20/2024 03:07:31 PM EDT > No answer Riddhi Skinner 12/21/2024 10:22:37 AM EDT > No answer Notes: on GLP1I as noted. monitor. recent A1C 5.9%??6.?Chronic allergic rhinitis ? Refill Singulair Tablet, 10 MG, 1 tab(s), orally, once a day, 90 days, 90 Tablet, Refills 3.? 7.?Left foot pain?Imaging: Ankle/Brachial Index--Segmental BPs* [facility] [id number] exp 01/17/25T [id number] [facility] * ? Referral To:Diagnostic Radiology ?Reason:ANISH bilat lower extremities * Follow Up: 6 Months * * Electronic signature of Opal Cano APRN on 12/22/2024 at 08:52 AM EDT Sign off status: Pending * Provider: TO Santana Date: 0 12/19/2024 Generated for Montez marc/Gia/Kriss on: 0 12/22/2024 08:52 AM EDT Consultation Request Notes Referral Date Referring Provider Referred Provider Not es 12/19/2024 Brittney Cano , ANISH bilat lo wer extremities
--- OUTSIDE RECORDS SUMMARY | 2024-12-22 08:52 | XMS_ITS | Patient Health Record ---
Author Organization [facility] Address [address] [place] [address] Care Team Providers Care Show Host Or Hostess Name Role Phone Jeremy Min Primary Care Provider Brittney Cano Unavailable [phone] Migration, Provider Unavailable Unavailable Allergies Allergen (clinical drug ingredient) Drug/Non Drug Allergy documented on EMR Reaction Allergy Type Onset Date Status ziprasidone Geodon facial twitching Drug Allergy Active Penicillin Unknown Drug Allergy Active Results Component Value Reference Range Notes LIPID PANEL, STANDARD (7600) (Not yet reviewed by provider) Interpretation: Performing Lab:JAREN, mig33-Christopher [id number] [facility], Christopher OseiHzqrOR[address] Jean Lyman Notes/Report: NON-FASTING; NON-FASTING; NON-FASTING; NON-FASTING; NON-FAST FASTING:YES FASTING: YES CHOLESTEROL, TOTAL 133 <200 mg/dL HDL CHOLESTEROL 44 > OR = 50 mg/dL TRIGLYCERIDES 108 <150 mg/dL LDL-CHOLESTEROL 70 with > or = 2 CHD risk factors. LDL-C is now calculated using the Abdifatah calculation, which is a validated novel method providing better accuracy than the Friedewald equation in the estimation of LDL-C. Cristino WASHINGTON et al. VIRGILIO. 2013;310(19): 0938-0671 (http://education.[employer]/faq/MBI029) Reference range: <100 Desirable range <100 mg/dL for primary prevention; <70 mg/dL for patients with CHD or diabetic patients CHOL/HDLC RATIO 3.0 <5.0 (calc) NON HDL CHOLESTEROL 89 <130 mg/dL (calc) For patients with diabetes plus 1 major ASCVD risk factor, treating to a non-HDL-C goal of <100 mg/dL (LDL-C of <70 mg/dL) is considered a therapeutic option. COMPREHENSIVE METABOLIC PANE L (26383) (Not yet reviewed by provider) Interpretation: Performing Lab:JAREN mig33-Mixx [id number] [address] [facility], [facility] HealthWyqyUK[address] Jean Lyman Notes/Report: NON-FASTING; NON-FASTING; NON-FASTING; NON-FASTING; [...] yet reviewed by provider) Interpretation: Performing Lab:JAREN mig33-Mixx [id number] [facility] [facility], [facility] HealthZsvbVE[address] Jean Lyman Notes/Report: NON-FASTING; NON-FASTING; NON-FASTING; NON-FASTING; [...] MPV 10.6 7.5-12.5 fL ABSOLUTE NEUTROPHILS 2997 [phone] cells/uL ABSOLUTE LYMPHOCYTES [phone] cells/uL ABSOLUTE MONOCYTES 459 200-950 cells/uL ABSOLUTE EOSINOPHILS 92 15-500 cells/uL ABSOLUTE BASOPHILS 38 0-200 cells/uL NEUTROPHILS 55.5 LYMPHOCYTES 33.6 MONOCYTES 8.5 EOSINOPHILS 1.7 BASOPHILS 0.7 HEMOGLOBIN A1c (496) (Not ye t reviewed by provider) Interpretation: Performing Lab:JAREN, mig33-Mixx [id number], iWeeboFfamWL[address] Jean Lyman Notes/Report: NON-FASTING; NON-FASTING; NON-FASTING; NON-FASTING; [...] diagnosis of diabetes in children. According to [place] Diabetes Association (ADA) guidelines, hemoglobin A1c <7.0% represents optimal control in non- diabetic patients. Different metrics may apply to specific patient populations. Standards of Medical Care in Diabetes(ADA). VITAMIN B12 (927) (Not yet r eviewed by provider) Interpretation: Performing Lab:JAREN, mig33-Mixx [id number], [employer].OqefJT[address] Jean Lyman Notes/Report: NON-FASTING; NON-FASTING; NON-FASTING; NON-FASTING; NON-FAST FASTING:YES FASTING: YES VITAMIN B12 647 078-0318 pg/mL TSH W/REFLEX TO FT4 (27681) (Not yet reviewed by provider) Interpretation: Performing Lab:JAREN, mig33-[employer] [facility], [facility] HospitalAbujVZ[address] Jean Lyman Notes/Report: NON-FASTING; NON-FASTING; NON-FASTING; NON-FASTING; NON-FAST FASTING:YES FASTING: YES TSH W/REFLEX TO FT4 0.60 0.40-4.50 mIU/L VITAMIN D,25-OH,TOTAL,IA (17 306) (Not yet reviewed by provider) Interpretation: Performing Lab:JAREN, mig33-[employer], [place] CocuJH[address] Jean Lyman Notes/Report: NON-FASTING; NON-FASTING; NON-FASTING; NON-FASTING; NON-FAST FASTING:YES FASTING: YES VITAMIN D,25-OH,TOTAL,IA 39 30-100 ng/mL educational purposes only.) (This link is being provided for informational/ Vitamin D Status 25-OH Vitamin D: Deficiency: <20 ng/mL Insufficiency: 20 - 29 ng/mL Optimal: > or = 30 ng/mL For 25-OH Vitamin D testing on patients on D2-supplementation and patients for whom quantitation of D2 and D3 fractions is required, the QuestAssureD(TM) 25-OH VIT D, (D2,D3), LC/MS/MS is recommended: order code 69526 (patients >2yrs). See Note 1 Note 1 For additional information, please refer to http://education.[employer]/faq/SGA178 CT Scan : Chest, Lung Cancer Screening Reviewed date:04/14/2024 02:51:04 PM Interpretation: Performing Lab: Notes/Report: M-Lipid Panel Reviewed date:05/09/2024 09:50:54 AM Interpretation: Performing Lab: Notes/Report: Patient Fasting? Y TRIG 145 30-150 mg/dl CHOL 122 140-200 mg/dl DLDL 66.69 100-129 mg/dL VLDL 29 0-40 mg/dL HDL 30 40-60 mg/dl CHLHDL 4.1 1-3.5 M-Hemoglobin A1C Reviewed date:05/09/2024 09:50:54 AM Interpretation: Performing Lab: Notes/Report: HGBA1C 5.3 4.0-6.0 % < 6% Non-Diabetic Level < 7% Controlled Diabetic Level > 8% Poorly Controlled Diabetic Level M-Comprehensive Metabolic Pa mickey Reviewed date:05/09/2024 09:50:54 AM Interpretation: Performing Lab: Notes/Report: NA 138 136-145 mmol/L K 4.2 3.5-5.1 mmoL/L CL 104 98-107 mmol/L CO2 24 22.0-30.0 mmol/L GAP 14.2 5-15 mEq/L BUN 16 7-17 mg/dl CREATT 0.90 0.52-1.04 mg/dl GFRAA 77 >60 ML/MIN EGFR 63 >60 ml/min GLU 99 74-100 mg/dl CA 9.2 8.4-10.2 mg/dl BILIT 0.5 0.2-1.3 mg/dl AST 39 14-36 U/L ALT 30 12-78 U/L TP 6.7 6.3-8.2 g/dl ALB 4.0 3.5-5.0 g/dl GLOB 2.7 1.3-3.2 g/dL AGRATIO 1.5 1.1-1.8 ALP 49 38-126 U/L M-Complete Blood Count Auto Diff Reviewed date:05/09/2024 09:50:54 AM Interpretation: Performing Lab: Notes/Report: WBC 6.3 4.8-10.8 K/mm3 RBC 4.44 4.20-5.40 M/mm3 HGB 12.0 12.2-16.2 g/dL HCT 35.9 37.0-47.0 % MCV 81.0 81-99 fl MCH 27.0 27.0-31.2 pg MCHC 33.4 31.8-35.4 g/dL RDW 15.6 11.5-17.5 % PLT 398 142-424 K/mm3 MPV 7.5 7.4-10.4 fl NE% 57.5 37.0-80.0 % LY% 31.8 10-50 % MO% 8.6 1.7-9.3 % EO% 1.5 0.1-12.0 % BA% 0.6 0.1-2.0 % NE# 3.6 1.8-7.8 K/mm3 LY# 2.0 0.7-4.5 K/mm3 MO# 0.5 0.1-1.0 K/mm3 EO# 0.1 0.0-0.4 K/mm3 BA# 0.0 0-0.2 K/mm3 Mammogram : Bilateral Reviewed date:03/09/2024 09:27:18 AM Interpretation: Performing Lab: Notes/Report: Medications Medication SIG (Take, Route, Frequency, Duration) Notes Start Date End Date Status Desvenlafaxine ER 100 MG 1 tab(s) orally once a day Active ZyrTEC Allergy 10 MG 1 tab(s) orally once a day for 90 days Active Slow Fe ( ELEMENTAL IRON) 45 MG 1 TAB(S) ORALLY ONCE A DAY *Please review and pick correct strength-formulati on from Pontis options. If intended option is not shown, discontinue and re-order from Quick Search* Active LORazepam 0.5 MG 1 tab(s) orally 2 times a day as needed for anxiety for 30 days 08/18/2021 Active Metoprolol Succinate ER 200 MG 1 tab(s) orally once a day Active Lipitor 80 MG 1 tab(s) orally once a day Active Singulair 10 MG 1 tab(s) orally once a day for 90 days Active Lasix 20 MG 1 tab(s) orally every other day for 180 days Active CALTRATE 600 WITH D (OBSOLETE) 600 MG-400 INTL UNITS 1 TAB(S) ORALLY 2 TIMES A DAY *Please review for potential replacement for e-prescription and drug interaction check* Active Levothyroxine Sodium 125 MCG 1 tab(s) orally once a day for 90 days Active ASPIR-LOW 81 MG 1 TAB(S) ORALLY ONCE A DAY *Please review for potential replacement for e-prescription and drug interaction check* Active Omeprazole 20 MG TAKE 1 CAPSULE BY MOUTH DAILY for 90 Active traZODone HCl 100 MG 1 tab(s) orally once a day (at bedtime) Active Losartan Potassium 25 MG 1 tab(s) orally once a day for 90 days Active Immunizations Vaccine Route Administration Date Status Comme nts SHINGRIX IM Intramuscular 06/30/2019 Administered SHINGRIX IM Intramuscular 02/27/2020 Administered Pneumovax 23 IM Intramuscular 04/13/2018 Administered Influenza-Fluzone 3+years (NON-MEDICARE) IM Intramuscular 04/13/2018 Administered Hep A Adult 2 Dose IM Intramuscular 06/30/2019 Administere d Hep A Adult 2 Dose IM Intramuscular 02/27/2020 Administere d Fluvirin--Influenza vaccine 3+ year IM Intramuscular 05/03/2014 Administered lot # [id number] Flublok IM Intramuscular 06/02/2022 Administered Covid Pfizer Unknown 08/28/2020 Administered Covid Pfizer Unknown 09/19/2020 Administered Arexvy Unknown 05/26/2023 Administered Social History Tobacco Use: Social History Observation Description Date Details (start date - stop date) Former Smoker NA - NA Smoking: Question Answer Notes Are you a: former smoker How long has it been since you last smoked? 5-10 years Problems Problem Type SNOMED Code ICD Code Onset Dates Problem Status W/U Status Risk Notes Problem 95639354 Hyperlipidemia, unspecified (E78.5) Active confirmed Problem 538039478 Chronic pain syndrome (G89.4) Active confirmed Problem 77761211 Coronary atherosclerosis due to lipid rich plaque (I25.83) Active confirmed Problem 49044465 Dysuria (R30.0) Active confirmed Problem 19770193 Anxiety (F41.9) Active confirmed Problem 58475985 Vitamin D deficiency (E55.9) Active confirmed Problem 500966454 Recurrent UTI (N39.0) Active confirmed Problem 37644709 Hyperglycemia (R73.9) Active confirmed Problem 66029908 HTN (hypertension), benign (I10) Active confirmed Problem 103294249 B12 deficiency (E53.8) Active confirmed Problem 183541015 Tubular adenoma of colon (D12.6) Active confirmed Problem 176241675 Microscopic hematuria (R31.2) Active confirmed Problem 800561677 Abnormal mammogram of right breast (R92.8) Active confirmed Problem 70158277 Chronic allergic rhinitis (J30.9) Active confirmed Problem 518782866 BMI 34.0-34.9,adult (Z68.34) Active confirmed Problem Dysuria (21317994) Burning with urination (R30.0) Active confirmed Problem 32273485 Degenerative dis c disease, lumbar (M51.36) Active confirmed Problem 891850708 Asthma exacerbation, mild (J45.901) Active confirmed Problem 365456566 Chronic insomnia (F51.04) Active confirmed Problem 84215467 Hiatal hernia (K44.9) Active confirmed Problem 09517530 Hypothyroidism, unspecified hypothyroidism type (E03.9) Active confirmed Problem Respiratory tract congestion (293955088) Congestion of respiratory tract (J98.8) Active confirmed Problem 01567939528354 Arthropathy, 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) Active confirmed Problem 56009841 Irritable bowel syndrome with constipation and diarrhea (K58.0) Active confirmed Problem 333097614 Plantar fasciiti s (M72.2) Active confirmed Problem 066474910 Recurrent acute serous otitis media of left ear (H65.05) Active confirmed Problem 054110389 Mild intermitten t acute asthmatic bronchitis (J45.21) Active confirmed Problem 11095479 Lumbar degenerative disc disease (M51.36) Active confirmed Problem 51493813 Hypothyroidism, unspecified type (E03.9) Active confirmed Problem 071806447 Moderate episode of recurrent major depressive disorder (F33.1) Active confirmed Problem 436250317848 Daytime somnolence (R40.0) Active confirmed Problem 96011977 Recurrent major depressive disorder, remission status unspecified (F33.9) Active confirmed Problem 38284453 Restrictive lung disease (J98.4) Active confirmed Problem 13338421 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) Active confirmed Problem mammogram - screening (36673185) Screening mammogram, encounter for (Z12.31) Active confirmed Problem 60831369626670813 Bilateral carp al tunnel syndrome (G56.03) Active confirmed Problem 539111575 History of coronary artery disease (Z86.79) Active confirmed Problem 984817058 Chronic major depressive disorder (F32.9) Active confirmed Problem 215299452 Abnormal breast biopsy (R89.7) Active confirmed Vital Signs Heart Rate 78 /min 12/19/2024 Temperature 97.9 degrees Fahrenheit 12/19/2024 Blood pressure diastolic 60 mm Hg 12/19/2024 Height 69 in 12/19/2024 Blood pressure systolic 96 mm Hg 12/19/2024 Weight 189.8 lbs 12/19/2024 BMI 28.03 kg/m2 12/19/2024 Encounters Encounter Location Date Provider Diagnosis [facility] [address] [place] [address] 10/08/2024 Provider Migration Chronic allergic rhinitis J30.9 [facility] [address] [facility] [address] [place], [place] [address] 12/19/2024 Brittney Cano Hypothyroidism, unspecified hypothyroidism type E03.9 ; Vitamin D deficiency E55.9 ; Hyperlipidemia, unspecified E78.5 ; B12 deficiency E53.8 ; Prediabetes R73.03 ; Chronic allergic rhinitis J30.9 ; Abnormal foot color R23.8 and Left foot pain M79.672 [facility] [address] [facility] [address] [place], [place] [address] 02/29/2024 Brittney Cano Hypothyroidism, unspecified hypothyroidism type E03.9 ; Routine medical exam Z00.00 ; Vitamin D deficiency E55.9 ; Hyperlipidemia, unspecified E78.5 ; B12 deficiency E53.8 ; Chronic major depressive disorder F32.9 ; Prediabetes R73.03 ; Visit for screening mammogram Z12.31 ; Chronic allergic rhinitis J30.9 and Personal history of tobacco use Z87.891 [facility] [address] [facility] [address] [place], [place] [address] 01/11/2024 Brittney Cano [facility] [address] [facility] [address] [place], [place] [address] 03/21/2024 Brittney Cano [facility] [address] [facility] [address] [place], [place] [address] 03/21/2024 Jeremy Min History of nicotine dependence Z87.891 Assessments Encounter Date Diagnosis (ICD Code) Assessment Notes Treatment Notes Treatment Clinical Notes Section Notes 02/29/2024 Routine medical exam (ICD-10 - Z00.00) wellness updated as noted 02/29/2024 Hypothyroidism, unspecified hypothyroidism type (ICD-10 - E03.9) continue oral replacement TSH 0.43, FT4 normal 1.10, no adjustment recommended 03/21/2024 History of nicotine dependence (ICD-10 - Z87.891) 12/19/2024 Hypothyroidism, unspecified hypothyroidism type (ICD-10 - E03.9) continue oral replacement TSH 0.43, FT4 normal 1.10, no adjustment recommended 12/19/2024 Vitamin D deficiency (ICD-10 - E55.9) continue replacement 02/29/2024 Vitamin D deficiency (ICD-10 - E55.9) continue replacement 02/29/2024 Hyperlipidemia, unspecified (ICD-10 - E78.5) labs done recently, reviewed today, LDL 52 12/19/2024 Hyperlipidemia, unspecified (ICD-10 - E78.5) labs done recently, reviewed today, LDL 52 02/29/2024 B12 deficiency (ICD-10 - E53.8) 12/19/2024 B12 deficiency (ICD-10 - E53.8) 12/19/2024 Prediabetes (ICD-10 - R73.03) on GLP1I as noted. monitor. recent A1C 5.9% 02/29/2024 Chronic major depressive disorder (ICD-10 - F32.9) Continue with BH 02/29/2024 Prediabetes (ICD-10 - R73.03) on GLP1I as noted. monitor. recent A1C 5.9% 12/19/2024 Chronic allergic rhinitis (ICD-10 - J30.9) 12/19/2024 Abnormal foot color (ICD-10 - R23.8) 02/29/2024 Visit for screening mammogram (ICD-10 - Z12.31) 02/29/2024 Chronic allergic rhinitis (ICD-10 - J30.9) 10/08/2024 Chronic allergic rhinitis (ICD-10 - J30.9) 12/19/2024 Left foot pain (ICD-10 - M79.672) 02/29/2024 Personal history of tobacco use (ICD-10 - Z87.891) stopped smoking 2011, 30+ pack year history. Last CT I find is 2020, will investigate and if this hasn't been done elsewhere she will need ongoing annual LDCT through 2026 Plan Of Treatment Pending Test Test Name Order Date N-CBC 10/28/2007 N-CBC 09/09/2006 X-Lipid Profile 10/28/2007 X-Lipid Profile 05/31/2007 N-FSH, LH 09/09/2006 Ultrasound : Breast, Right 10/10/2021 Mammogram : Diagnostic 10/08/2021 Mammogram : Diagnostic 05/18/2006 N-TSH (Thyroid Stimulating Hormone) 10/05 N-CMP 05/31/2007 N-CMP 10/28/2007 N-CMP 09/09/2006 Physical Therapy 11/08/2010 Physical Therapy 10/21/2021 Physical Therapy 11/11/2021 Cardiac Rehabilitation 08/07/2011 Mammogram : Bilateral 10/28/2007 Mammogram : Bilateral 03/22/2010 Ankle/Brachial Index--Segmental BPs 12/04 H-CBC with AUTO DIFF 07/07/2011 H-CBC with AUTO DIFF 03/22/2010 H-CBC with AUTO DIFF 10/31/2016 H-URINE CULTURE 08/28/2011 H-VITAMIN B12 07/07/2011 H-VITAMIN B12 10/31/2016 H-CMP 10/31/2016 H-CMP 03/22/2010 H-CMP 07/29/2010 H-CMP 07/07/2011 H-CMP 07/09/2017 H-LIPID PANEL 07/09/2017 H-LIPID PANEL 07/07/2011 H-LIPID PANEL 07/29/2010 H-LIPID PANEL 03/22/2010 H-LIPID PANEL 10/31/2016 H-HGBA1C 10/31/2016 H-TSH 10/31/2016 H-TSH 03/22/2010 H-TSH 07/29/2010 H-TSH 07/07/2011 H-TSH 07/09/2017 H-ESTROGEN 07/07/2011 H-VIT D, 25-HYDROXY 10/31/2016 H-SED RATE 04/27/2012 H-SAL PROFILE 04/27/2012 C-SAL 03/02/2020 C-CCP IGG Antibodies 03/02/2020 H-SS A 04/27/2012 H-SS B 04/27/2012 h-leutinizing hormone 07/07/2011 h-leutinizing hormone 03/22/2010 H-FSH 03/22/2010 H-FSH 07/07/2011 M-Complete Blood Count Auto Diff 019 M-Complete Blood Count Auto Diff 020 M-Comprehensive Metabolic Panel 12/21/19 20 M-Comprehensive Metabolic Panel 09/02/19 19 M-Hemoglobin A1C 09/02/2018 M-Lipid Panel 09/02/2018 M-Lipid Panel 12/21/2019 M-Thyroid Stimulating Hormone 12/21/2019 M-Thyroid Stimulating Hormone 09/02/2018 M-Vitamin B12 09/02/2018 M-Vitamin B12 12/21/2019 M-Vitamin D 25 Hydroxy 12/21/2019 M-Vitamin D 25 Hydroxy 09/02/2018 M-COVID PCR SINGLE RAPID 04/30/2020 Mammogram: Screening 09/09/2022 LIPID PANEL, STANDARD (7600) 12/19/2024 COMPREHENSIVE METABOLIC PANEL (49403) CBC (INCLUDES DIFF/PLT) (6399) HEMOGLOBIN A1c (496) 12/19/2024 VITAMIN B12 (927) 12/19/2024 TSH W/REFLEX TO FT4 (62820) 12/19/2024 VITAMIN D,25-OH,TOTAL,IA [phone] Insurance Providers Payer Name Payer Address Payer Phone Subscriber Number Group Number Insured Name Patient Relationship to Insured Coverage Start Date Coverage End Date [facility] [address] [place] [address] [id number] Kina Queen Self - patient is the insured [place] [address] [place] [address] [id number] Kina Queen Self - patient is the insured Medications Administered Medication Instructions Date of Administration Dosage Notes Ceftriaxone 500 01/21/2018 500 mg Dexamethasone 4mg Injection 07/14/2023 4 mL Kenalog 40mg 08/03/2017 40 mg Medical (General) History Medical History History ICD Code anxiety depression GERD hyperlipidemia uterine fibroids hypothyroidism degenerative L4-5 disc Tarlov's cyst arthritis lumbosacral spine CAD s/p 4 vessel CABG 2011 Colonoscopy November 2015 with tu bular adenoma - repeat colonoscopy January 2018 with hyperplastic polyp EGD January 2018 with gastritis, no metapla melody equivocal mammogram findings December 2019, recommended six-month followup - normal on repeat 06/24 Colonoscopy 2019, Dr Kelley. TA x2. [place] noscopy again 2022, repeat 5 years Surgical History Surgery Date(Month/Year) hysterectomy-partial 1997 cholecystectomy 2002 CABG x4 07/2011 appendectomy 06/2016 colonoscopy/EGD 12/2017 rt ankle surgery 06/2018 sinus lift surgery and 2 implants 3 Hospitalization History Reason Date(Month/Year) surgeries
--- OUTSIDE RECORDS SUMMARY | 2024-12-22 08:52 | XMS_ITS | Data Portability ---
Author Organization [facility] - Frankie richards MD, Main Office Address [address] [place] [address], [facility] [address] [place] [address] Care Team Providers Care Packing Shed Supervisor Name Role Phone SREE GUILLORY Primary Care Provider Assessment No assessment recorded. Plan of Treatment Reminders Order Date Submit Date Provider Last Modified By Organization Details Last Modified Time Details Appointments None record ed. Lab None record ed. Referral None record ed. Procedures None record ed. Surgeries None record ed. Imaging None record ed. Medication Orders None record ed. Patient TargetsNo targets recorded. Patient Instructions Encounter Date Encounter Id Patient Instructions Last Modified By Organization Details Last Modified Time 10/07/2021 [id number] Numbness and Tingling: Care Instructions [email or web address] Not available 10/07/2021 12:59:35 Reason for Referral None Reported. Results Created Date Observation Date Name Description Value Unit Range Abnormal Flag Note LastModifiedBy Organization Detail LastModifiedTime 10/08/1910/07/2021 elect romyo gram + nerve condu ction study No observ ation record ed. BARCODE Not Available 2021 13:06:43 Result Notes None recorded. Problems No Known Problems Procedures Surgical History Date Name Laterality Status Provider Name and Address Organization Details Recorded Time 10/07/2021 NCV/EMG completed Seth Barriga MD 10/07/2021 12:59:29 Imaging Results None recorded. Procedure Notes None recorded. Medical Equipment None Reported. Allergies No known drug allergies Medications Name Sig Start Date Stop Date Status Note LastModified by Organization Details LastModified Time promethazine -DM 6.25 mg-15 mg/5 mL oral syrup TAKE 5 ML BY MOUTH EVERY 6 HOURS FOR 10 DAYS NEEDED FOR COUGH active Not Available Not Available No t Available atorvastatin 80 mg tablet TAKE 1 TABLET BY MOUTH DAILY FOR CHOLESTEROL active Not Available Not Available Not Available doxycycline hyclate 100 mg capsule TAKE 1 CAPSULE BY MOUTH TWICE DAILY FOR 10 DAYS active Not Available Not Available No t Available cetirizine 10 mg tablet TAKE ONE TABLET BY MOUTH ONCE DAILY active Not Available Not Available No t Available meloxicam 15 mg tablet TAKE 1 TABLET BY MOUTH DAILY active Not Available Not Available Not Available metoprolol succinate ER 200 mg tablet,exten ded release 24 hr TAKE 1 TABLET BY MOUTH DAILY active Not Available Not Available Not Available phenazopyrid ine 200 mg tablet TAKE 1 TABLET BY MOUTH THREE TIMES DAILY active Not Available Not Available Not Available prednisone 20 mg tablet TAKE 1 TABLET BY MOUTH TWICE DAILY active Not Available Not Available No t Available isosorbide mononitrate ER 30 mg tablet,exten ded release 24 hr TAKE 1 TABLET BY MOUTH DAILY active Not Available Not Available Not Available metoprolol succinate ER 100 mg tablet,exten ded release 24 hr TAKE 1 AND 1/2 TABLETS BY MOUTH DAILY active Not Available Not Available No t Available sertraline 100 mg tablet TAKE 1 TABLET BY MOUTH EVERY DAY active Not Available Not Available No t Available ciprofloxaci n 500 mg tablet TAKE 1 TABLET BY MOUTH TWICE DAILY FOR 7 DAYS active Not Available Not Available No t Available prednisolone acetate 1 % eye drops,suspen chris SHAKE LIQUID AND INSTILL 1 DROP IN BOTH EYES TWICE DAILY active Not Available Not Available Not Available lorazepam 0.5 mg tablet TAKE 1 TABLET BY MOUTH TWICE DAILY NEEDED FOR ANXIETY active Not Available Not Available No t Available trazodone 100 mg tablet TAKE 1 TABLET BY MOUTH AT BEDTIME active Not Available Not Available No t Available benzonatate 100 mg capsule TAKE 1 CAPSULE BY MOUTH TWICE DAILY FOR 7 DAYS NEEDED FOR COUGH active Not Available Not Available No t Available losartan 25 mg tablet TAKE 1 TABLET BY MOUTH EVERY DAY active Not Available Not Available No t Available nitroglyceri n 0.4 mg sublingual tablet active Not Available Not Available Not Available sertraline 25 mg tablet TAKE 1 TABLET BY MOUTH EVERY DAY active Not Available Not Available No t Available omeprazole 20 mg capsule,sabrina yed release TAKE 1 CAPSULE BY MOUTH EVERY DAY active Not Available Not Available No t Available montelukast 10 mg tablet TAKE 1 TABLET BY MOUTH EVERY DAY active Not Available Not Available No t Available furosemide 20 mg tablet TAKE 1 TABLET BY MOUTH EVERY OTHER DAY active Not Available Not Available No t Available methylpredni solone 4 mg tablets in a dose pack TAKE DIRECTED ON PACKAGE active Not Available Not Available No t Available albuterol sulfate HFA 90 mcg/actuatio n aerosol inhaler INHALE 2 PUFFS BY MOUTH EVERY 4 TO 6 HOURS DIRECTED NEEDED active Not Available Not Available No t Available hydroxyzine HCl 10 mg tablet TAKE 1 TABLET BY MOUTH TWICE DAILY active Not Available Not Available No t Available ondansetron 4 mg disintegrati ng tablet DISSOLVE 1 TABLET IN MOUTH EVERY 8 HOURS NEEDED FOR NAUSEA active Not Available Not Available No t Available sertraline 50 mg tablet TAKE 1 TABLET BY MOUTH EVERY DAY active Not Available Not Available No t Available colestipol 1 gram tablet TAKE 1 TABLET BY MOUTH EVERY DAY active Not Available Not Available No t Available levothyroxin e 112 mcg tablet TAKE 1 TABLET BY MOUTH EVERY DAY active Not Available Not Available No t Available escitalopram 20 mg tablet TAKE 1 TABLET BY MOUTH EVERY DAY active Not Available Not Available No t Available Restasis 0.05 % eye drops in a dropperette INSTILL 1 DROP IN BOTH EYES TWICE DAILY active Not Available Not Available Not Available nitrofuranto in monohydrate/ macrocrystal s 100 mg capsule TAKE 1 CAPSULE BY MOUTH TWICE DAILY active Not Available Not Available No t Available Symbicort 160 mcg-4.5 mcg/actuatio n HFA aerosol inhaler INHALE 2 PUFFS BY MOUTH TWICE DAILY DIRECTED active Not Available Not Available No t Available QNASL 80 mcg/actuatio n nasal aerosol spray USE 1 TO 2 SPRAYS IN EACH NOSTRIL EVERY DAY active Not Available Not Available No t Available Vitals None Recorded Social History None recorded. Functional Status None recorded. Mental Status None recorded. Family History Nothing Reported. Medical History No medical history recorded. Gynecological HistoryNo gynecological history recorded. Obstetrics History GPAL:G 0 P 0 0 0 0 Past Encounters Encounter ID Performer Location Encounter Start Date Encounter Closed Date Diagnosis/Indication Diagnosis SNOMED-CT Code Diagnosis ICD10 Code Diagnosis Note [id number] Frankie Barriga MD Main Office [address] [facility], [address] [address] 10/07/2021 12:17:29 10/07/2021 13:00:53 Paresthesia 67465048 R20.2 Health Concerns Section Related Observation LastModified by Organization Detai ls LastModified Time None Recorded Concern Status LastModified by Organization Details LastModified Time None Recorded Advance Directives Directive None Recorded Payers Insurance Date Sequence Insurance Name Policy Number Policy Dela Cruz Covered Member ID Dela Cruz Member ID Guarantor Name 10/07/2021 1 [employer] (PPO) Kina Queen [id number] Kina Queen 10/07/2021 2 [place] Kina Queen [id number] Kina Queen OBGyn Episode No OBEpisode recorded.
--- OUTSIDE RECORDS SUMMARY | 2024-12-22 08:52 | XMS_ITS | Clinical Summary ---
Author Organization [facility] Address [address] [place] [address] Care Team Providers Care Arborist Climber Name Role Phone Jeremy Min MD Primary Care Provider [phone] Allergies Active Allergy Reactions Criticality Noted Date Comments Penicillins Rash Low 04/10/2021 Social History Tobacco Use Types Packs/Day Years Used Date Smoking Tobacco: Former Smokeless Tobacco: Never Comments No Sex and Gender Information Value Date Recorded Sex Assigned at Not on file Legal Sex Female 8:28 PM EDT Gender Identity Not on file Sexual Orientation Not on file Last Filed Vital Signs Vital Sign Reading Time Taken Comments Blood Pressure 149/74 04/10/2021 1:45 PM EDT Pulse 66 04/10/2021 1:45 PM EDT Temperature - - Respiratory Rate 17 04/10/2021 1:45 PM EDT Oxygen Saturation 96% 04/10/2021 1:45 PM EDT Inhaled Oxygen Concentration - - Weight 107 kg (235 lb) 10/11/2021 9:39 AM EDT Height - - Body Mass Index - - Plan of Treatment Health Maintenance Due Date Last Done Comments [facility]-Depression Screening 1960 [facility]-Infant/Child/Adol SDOH Screenings 1960 [facility]- SDOH Screenings 1978 [facility]-Adult SDOH Screenings 1978 [facility]-DTaP,Tdap,and Td Vaccine s (1 - Tdap) 1979 CT Colonography 2005 Colonoscopy 2005 FIT-DNA 2005 FIT 2005 FOBT 2005 Sigmoidoscopy 2005 [facility]-Colorectal Cancer Screening 2005 [facility]-Pneumococcal Vaccine: 50 + Years (2 of 2 - PCV) 01/31/2021 02/01/2020, 04/13/2018 [facility]-BABZO-21 Vaccine (4 - 2023- season) 2024 07/29/2021, 09/19/2020, 08/28/2020 [facility]-Influenza Vaccine (Seaso n Ended) 2025 06/02/2022, 04/13/2018 [facility]-RSV Vaccine: 60+ Years o r (1 - 1-dose 75+ series) 2035 [facility]-Hepatitis A Vaccines Aged Out 020, 06/30/2019 No longer eligible based on patient's age to complete this topic [facility]-Zoster Vaccines Completed 02/27/2020, 06/30/2019 HPV Vaccines Aged Out No longer eligi ble based on patient's age to complete this topic [facility]-HIB Vaccines Aged Out No longer e ligible based on patient's age to complete this topic [facility]-IPV Vaccines Aged Out No longer e ligible based on patient's age to complete this topic [facility]-Rotavirus Vaccines Aged Out No lo nger eligible based on patient's age to complete this topic Insurance MEDICARE Care Teams Arborist Climber Relationship Specialty Start Date End Date Jeremy Min MD [address] [address] [place] [address] PCP - General 11/16/20
--- NOTE | 2024-12-22 08:53 | US_ITS ---
FINAL REPORT CLINICAL HISTORY: CLAUDICATION,REST PAIN,HTN,HLD,EX SMOKER FINDINGS: Ankle-brachial indices was obtained. The right ANISH is 1.0. The left ANISH is 1.1. IMPRESSION: ABIs are within normal limits. Reviewed, Interpreted and Dictated by Eder Jameson MD Transcribed by Karey Genao Authenticated and [facility]
== END 2024-12-22 23:59 | disposition home or self-care (01) ==
LOC: RT 08:50
PROVIDERS: PCP Nurse Practitioner Family; Visit Provider Nurse Practitioner Family
DX: M79.672 Pain in left foot (principal); I73.9 Peripheral vascular disease, unspecified; I10 Essential (primary) hypertension; E78.5 Hyperlipidemia, unspecified; Z87.891 Personal history of nicotine dependence
CPT/HCPCS: 93923